=== PATIENT | female | born 1985 | race Hispanic/Latino ===

== ENCOUNTER 2017-02-14 08:00 | Outpatient (CLI) | payer OTHER | END 2017-02-14 08:01 | disposition home or self-care (01) | LOC: BICULT 08:00 | PROVIDERS: ATTEND Emergency Medicine | DX: N63.0 Unspecified lump in unspecified breast (principal) ==

== ENCOUNTER 2017-02-17 21:01 | Inpatient (IN) | payer MEDICAID, OTHER, SELFPAY ==
[2017-02-17 22:06] VITALS: BMI 33.5
[2017-02-17] MEDS ORDERED: LR / Pitocin 40 units/1000 ml 1,000 ML IV PRN (22:13)
[2017-02-17] MEDS ORDERED: Lidocaine 1% (PF) 30 ML VIAL SC PRN (22:13)
[2017-02-17] MEDS ORDERED: Acetaminophen 500 MG TAB PO PRN (22:13)
[2017-02-17] MEDS ORDERED: Promethazine HCl 25 MG/ML VIAL IM PRN (22:13)
[2017-02-17] MEDS ORDERED: Zolpidem Tartrate 5 MG TAB PO PRN (22:13)
[2017-02-17] MEDS: Lactated Ringer's 1,000 ML IV SCH (22:15)
[2017-02-17] MEDS ORDERED: Carboprost 250 MCG/ML AMP IM PRN (22:18)
[2017-02-17] MEDS ORDERED: HYDROcodone/Acetaminophen 5/325 mg Tablet PO PRN ×2 (22:18)
[2017-02-17] MEDS ORDERED: Diphenoxylate HCl/Atropine Tablet PO PRN (22:18)
[2017-02-17] MEDS ORDERED: Methylergonovine 0.2 MG/ML VIAL IM PRN (22:18)
[2017-02-17] MEDS ORDERED: Ibuprofen 800 MG TAB PO PRN (22:18)
[2017-02-17] MEDS ORDERED: Misoprostol 200 MCG TAB PR PRN (22:18)
[2017-02-17 22:37] LABS: Hemoglobin 12.8 g/dL (12.0-16.0); Mean Corpuscular HGB CONC 34.3 g/dL (32.0-36.0); Mean Corpuscular Hemoglobin 29.9 pg (27.0-31.0); Mean Corpuscular Volume 87.4 fl (81.0-99.0); Mean Platelet Volume 8.4 fL (7.4-10.4); Platelet Count 182 thou/uL (130-400); RBC Distribution Width 12.6 % (11.5-14.5); Red Blood Cell (RBC) Count 4.27 mill/uL (4.20-5.40); White Blood Cell (WBC) Count 8.9 thou/uL (4.8-10.8)
[2017-02-17 22:51] LABS: ALT (SGPT) 11 U/L (8-55); AST (SGOT) 13 U/L (5-34); Albumin 3.2 g/dL (3.5-5.0); Alkaline Phosphatase 100 U/L (40-150); Anion Gap 15 mmol/L (10-20); BUN (Urea Nitrogen) 11 mg/dL (7.0-18.7); Bilirubin, Total 0.3 mg/dL (0.2-1.2); Calc. Creatinine Clearance 172 mL/min (70-130); Calcium 9.1 mg/dL (7.8-10.44); Carbon Dioxide 20 mmol/L (22-29); Chloride 106 mmol/L (98-107); Estimated GFR-MDRD Greater than 90; Globulin 2.8 g/dL (2.4-3.5); Glucose 99 mg/dL (70-105); Sodium 137 mmol/L (136-145)
[2017-02-17 23:09] LABS: Syphilis Antibody Nonreactive (Nonreactive); Syphilis Antibody Index 0.06 S/CO (<1.00 Non-Reactive)
[2017-02-17 23:35] LABS: HBSAg Index 0.16 S/CO (0-0.99); Hep B Surf Ag Non-Reactive S/CO (NonReactive)
[2017-02-18] MEDS: Misoprostol 100 MCG TAB VAG SCH ×7 (00:47→22:31)
--- NOTE | 2017-02-18 00:53 | PDOC.LDHP ---
Labor and Delivery H&P Chief complaint: scheduled induction HPI: 31 yo at 38.3 wks by LMP/13.3 wk sono here for scheduled elective IOL. Patient recently dx with Left breast invasive ductal carcinoma grade 2 (ER/OR positive, HER-2/Hero negative). Meet with cancer team today. Discussed treatment options along with delivery options. Patient wishes to proceed with IOL today and start treatment as soon as possible. For the most part, has been uneventful. Except for the following.... BMI 34, Gestational thrombocytopenia (resolved) and breast cancer. Breast mass was originally noted by patient 2 months ago on self-breast exam. Denies skin changes, pain, or nipple discharge. No family history of colon, breast, or ovarian. +FM. Denies LOF, discharge, VB. Occasional non-painful contraction. Current gestational age (weeks): 38 (38.3 wks) Due date: 02/28/17 Dating criteria: other (by LMP/13.3 wk sono) Grav: 1 Para: 0 OB History Details: G1 Current complications: other (BMI 34, Gestational thrombocytopenia ( resolved), Invasive Ductal Carcinoma of the left breast) Abnormal US findings: No (Cephalic. Anterior placenta. Grossly normal anatomy. ) Past Medical History: NONE Current medications: pre-slim vitamins Previous surgical history: none Allergies/Adverse Reactions: Allergies Allergy/AdvReac Type Severity Reaction Status Date / Time No Known Allergies Allergy Verified 02/17/17 22:00 Social history: none - Physical Exam Vital signs reviewed and normal: yes General: NAD, resting Heart: RRR (No M/R/G) Lungs: nonlabored breathing (CTAB, No W/C/R) Abdomen: gravid (NTTP, ND, BS present) Extremeties: normal range of motion (No C/C/E) FHT: category 1 (145/mod/pos acels/no decels) [place] contractions every: Occasional - Vaginal Exam cm dilated: 1 Effacement: 50% Station: -3 - OB Labs Blood type: A RH: positive Antibody Screen: negative HIV: negative (08/26/16, 01/07/17) RPR: negative (08/26/16, 01/07/17) HEPSAg: negative 1 hour GCT: negative (126) GBS: negative (02/04/18) Rubella: immune Additional Labs: Urine culture: negative H/H: 13.9/39.3 --> 12.5/36.0 --> 13.1/37.7 PLT: 155 --> 149 --> 189 Pap: NILM/HPV negative, Reactive cellular changes noted. Gonorrhea/Chloamydia: negative - Assessment L&D Assessment: elective induction at term - Plan Plan: admit to L&D, cervical ripening -: 31 yo female at 38.3 wks by LMP/13.3 wk sono admitted for elective IOL. 1. sIUP: IOB labs reviewed. Anatomy reviewed. Declined genetic screening. s/p Flu vaccine. 1 hour gtt 126. 3T negative. GBS negative. Cephalic by sono. Anterior placenta. EFW 7lbs. Cat 1 tracing. At this time does not want epidural for pain control. 2. Elective IOL: R/B/A discussed at length. Learning And Development Coordinator used. Questions answered. Styles 4. Will start with miso. Repeat exam in 4 hours. Continuous vs intermitten monitoring at this time. Pending tracing and contraction pattern. 3. Invasive ductal carcinoma of the breast, grade 2: ER/OR positive. HER-e/Hero negative. Consult gen surg and Onc after delivery. Likely needs mediport prior to d/c. 4. BMI 34 5. Gestational thrombocytopenia: Resolved. PLT today 182. Dispo: Admit and proceed with IOL. Repeat exam in 4 hours. Luigi
--- NOTE | 2017-02-18 04:27 | PDOC.LDPN ---
Labor & Delivery Progress Note - Subjective Subjective: comfortable, other (31 yo G1 @ 38.4wks presents for induction.) - Objective Vital signs reviewed and normal: yes General: NAD Dilation: 1 Effacement: 50% Station: -3 FHT: category 1 [place] contractions every: 1-2minutes - Assessment (1) early term Current Visit: Yes Status: Acute (2) Encounter for elective induction of labor Code(s): Z34.90 - ENCNTR FOR SUPRVSN OF NORMAL , UNSP, UNSP TRIMESTER Current Visit: Yes Status: Acute (3) Gestational thrombocytopenia Code(s): O99.119 - OTH DIS OF BLD/BLD-FORM ORG/IMMUN MECHNSM COMP PREG,UNSP TRI ; D69.6 - THROMBOCYTOPENIA, UNSPECIFIED Current Visit: Yes Status: Acute (4) Invasive ductal carcinoma of breast Code(s): C50.919 - MALIGNANT NEOPLASM OF UNSP SITE OF UNSPECIFIED FEMALE BREAST Current Visit: Yes Status: Acute -: Plan: Cervix i s unchanged from prior check at 0030. [place] every 1-[address] minutes[address] Too often to place another cytotec. Will discuss with patient her options. Continue labor checks q4h <Neela Tovar - Last Filed: 02/18/17 04:25> Attending Addendum - Attending Addendum I personally evaluated the patient and discussed the management with Dr. Tovar I agree with the History, Examination, Assessment and Plan documented above with any addition or exceptions noted below. 31 yo female at 38.4 wks by LMP/13.3 wk sono admitted for elective IOL. 1. sIUP: IOB labs reviewed. Anatomy reviewed. Declined genetic screening. s/p Flu vaccine. 1 hour gtt 126. 3T negative. GBS negative. Cephalic by sono. Anterior placenta. EFW 7lbs. Cat 1 tracing. At this time does not want epidural for pain control. 2. Elective IOL: s/p miso x1. Unable to place 2nd miso at this time. Cooks balloon inserted at 0505. Patient tolerated well. Will allow short rest and reassess in 1 hour. If contraction pattern decreased will place 2nd miso. Ctx q 2 to 4 mins. SVE unchanged. 3. Invasive ductal carcinoma of the breast, grade 2: ER/GA positive. HER-e/Hero negative. Consult gen surg and Onc after delivery. Likely needs mediport prior to d/c. 4. BMI 34 5. Gestational thrombocytopenia: Resolved. PLT today 182. Dispo: Assess in 1 hour. Possible miso vs pit. Balloon in place. Pain manageable without interventions. Luigi <Jaleesa Hughes - Last Filed: 02/18/17 05:13>
[2017-02-18] MEDS: Lactated Ringer's 1,000 ML IV SCH ×3 (06:05→22:31)
--- NOTE | 2017-02-18 09:22 | PDOC.LDPN ---
Labor & Delivery Progress Note - Subjective Subjective: comfortable - Objective Vital signs reviewed and normal: yes General: NAD, resting Uterine fundus: non tender SVE: Tugged on balloon; still firmly in place @ 09:00 FHT: category 1, variability present [place] contractions every: q1-2 - Assessment (1) Encounter for elective induction of labor Code(s): Z34.90 - ENCNTR FOR SUPRVSN OF NORMAL , UNSP, UNSP TRIMESTER Current Visit: Yes Status: Acute Comment: 31 y/o @ 38.4 wks presents for elective induction of labor -Recent diagnosis of invasive ductal carcinoma -Cytotec x2 -Balloon placed at 4:30; checked at 9:[address] -Check balloon every 2 hours -Consider pitocin or cytotec at 10:00, which would be 4 hours after balloon placement (2) early term Current Visit: Yes Status: Acute Comment: -Elective induction of labor (3) Invasive ductal carcinoma of breast Code(s): C50.919 - MALIGNANT NEOPLASM OF UNSP SITE OF UNSPECIFIED FEMALE BREAST Current Visit: Yes Status: Acute Comment: -Recent diagnosis -Talked with social media marketing analyst about new diagnosis; PCP was present during discussion (4) Gestational thrombocytopenia Code(s): O99.119 - OTH DIS OF BLD/BLD-FORM ORG/IMMUN MECHNSM COMP PREG,UNSP TRI ; D69.6 - THROMBOCYTOPENIA, UNSPECIFIED Current Visit: Yes Status: Chronic Plan: continue plan of care <Ita Caballero - Last Filed: 02/18/17 11:15> Attending Addendum - Attending Addendum I personally evaluated the patient and discussed the management with Dr. Alicia on 02/18/17 I agree with the History, Examination, Assessment and Plan documented above with any addition or exceptions noted below. Balloon + Cytotec induction. Cat 1. Ctxn's detected via EFM every 2-3 min. Balloon placed at 0400, will continue till 1600 if doesn't come out on own. <Rober Velásquez - Last Filed: 02/19/17 11:24>
--- NOTE | 2017-02-18 12:17 | PDOC.LDPN ---
Labor & Delivery Progress Note - Subjective Subjective: painful contractions - Objective Vital signs reviewed and normal: yes General: NAD, breathing through contractions Uterine fundus: non tender SVE: 12:10 Dilation: 2 Effacement: 25% Station: -2 FHT: category 1, variability present [place] contractions every: q2-3 min - Assessment (1) Encounter for elective induction of labor Code(s): Z34.90 - ENCNTR FOR SUPRVSN OF NORMAL , UNSP, UNSP TRIMESTER Current Visit: Yes Status: Acute Comment: 31 y/o @ 38.4 wks presents for elective induction of labor -Recent diagnosis of invasive ductal carcinoma -Cytotec x2 -Balloon placed at 4:30; checked at 9:[address]; replaced at 10:00 -Check balloon every 2 hours -SVE: 04/03/-2 @ 12:00, unchanged -Remove balloon at 16:30 after total of 12 hours -Consider starting pitocin at that time (2) early term Current Visit: Yes Status: Acute Comment: -Elective induction of labor (3) Invasive ductal carcinoma of breast Code(s): C50.919 - MALIGNANT NEOPLASM OF UNSP SITE OF UNSPECIFIED FEMALE BREAST Current Visit: Yes Status: Acute Comment: -Recent diagnosis -Talked with social studies department chair about new diagnosis; PCP was present during discussion (4) Gestational thrombocytopenia Code(s): O99.119 - OTH DIS OF BLD/BLD-FORM ORG/IMMUN MECHNSM COMP PREG,UNSP TRI ; D69.6 - THROMBOCYTOPENIA, UNSPECIFIED Current Visit: Yes Status: Chronic <Ita Caballero - Last Filed: 02/18/17 12:15> Attending Addendum - Attending Addendum I personally evaluated the patient and discussed the management with Dr. Alicia on 02/18/17. I agree with the History, Examination, Assessment and Plan documented above with any addition or exceptions noted below. SVE revealed uterine balloon intravaginal, removed and cervix found to be 2 cm at external os and 1 at internal os, suggesting incomplete prior insertion. New Cook balloon placed in proper placement. Will continue till 1630 as tolerated. EFM Cat 1 with ctxns q 1-3 minutes mildly felt by pt. <Rober Velásquez - Last Filed: 02/19/17 11:29>
[2017-02-18] MEDS: Ondansetron HCl/PF 4 MG/2 ML Vial IVP PRN ×2 (12:46→20:31)
--- NOTE | 2017-02-18 16:26 | PDOC.LDPN ---
Labor & Delivery Progress Note - Subjective Subjective: painful contractions - Objective Vital signs reviewed and normal: yes General: NAD, resting, breathing through contractions Uterine fundus: non tender SVE: 16:15 Dilation: 4 Effacement: 50% Station: -2 FHT: category 1 [place] contractions every: 2 min - Assessment (1) Encounter for elective induction of labor Code(s): Z34.90 - ENCNTR FOR SUPRVSN OF NORMAL , UNSP, UNSP TRIMESTER Current Visit: Yes Status: Acute Comment: 31 y/o @ 38.4 wks presents for elective induction of labor -Recent diagnosis of invasive ductal carcinoma -Cytotec x2 -Balloon removed at 16:15 as it had been 12hrs -SVE: 50/-2 -Holding off on pitocin at this time. -Considering an epidural and has watched video, but wants to hold off for now. - Recheck q2H and depending on her check at that time consider letting her rest overnight and starting pit tomorrow AM. (2) Invasive ductal carcinoma of breast Code(s): C50.919 - MALIGNANT NEOPLASM OF UNS SITE OF UNSPECIFIED FEMALE BREAST Current Visit: Yes Status: Acute Comment: -Recent diagnosis -Talked with group social worker about new diagnosis; PCP was present during discussion (3) early term Current Visit: Yes Status: Acute Comment: -Elective induction of labor (4) Gestational thrombocytopenia Code(s): O99.119 - OTH DIS OF BLD/BLD-FORM ORG/IMMUN MECHNSM COMP PREG,UNSP TRI ; D69.6 - THROMBOCYTOPENIA, UNSPECIFIED Current Visit: Yes Status: Chronic Comment: PLT of 182 on admission.
[2017-02-18] MEDS: LR 500 ML/Oxytocin 10 units 500 ML IV SCH ×2 (20:31→22:56)
--- NOTE | 2017-02-18 22:59 | PDOC.LDPN ---
Labor & Delivery Progress Note - Subjective Subjective: painful contractions - Objective Vital signs reviewed and normal: yes General: NAD, resting, breathing through contractions Dilation: 7 Effacement: 90% Station: -1 FHT: category 2 (minimal variability) [place] contractions every: 3-5 minutes - Assessment (1) early term Current Visit: Yes Status: Acute Comment: -Elective induction of labor (2) Encounter for elective induction of labor Code(s): Z34.90 - ENCNTR FOR SUPRVSN OF NORMAL , UNSP, UNSP TRIMESTER Current Visit: Yes Status: Acute Comment: 31 y/o @ 38.4 wks presents for elective induction of labor -Recent diagnosis of invasive ductal carcinoma -Balloon removed at 16:15 as it had been 12hrs -SVE: /-1 -Starting pitocin. -Recheck q2H -Pt does not desire an epidural (3) Gestational thrombocytopenia Code(s): O99.119 - OTH DIS OF BLD/BLD-FORM ORG/IMMUN MECHNSM COMP PREG,UNSP TRI ; D69.6 - THROMBOCYTOPENIA, UNSPECIFIED Current Visit: Yes Status: Chronic Comment: PLT of 182 on admission. (4) Invasive ductal carcinoma of breast Code(s): C50.919 - MALIGNANT NEOPLASM OF UNSP SITE OF UNSPECIFIED FEMALE BREAST Current Visit: Yes Status: Acute Comment: -Recent diagnosis -Talked with mental health social worker about new diagnosis; PCP was present during discussion Plan: pitocin for augmentation
--- NOTE | 2017-02-18 23:01 | PDOC.LDPN ---
Labor & Delivery Progress Note - Subjective Subjective: comfortable - Objective Vital signs reviewed and normal: yes General: NAD Dilation: 6 Effacement: 50% Station: -1 FHT: category 2 [place] contractions every: 3-5 minutes - Assessment (1) early term Current Visit: Yes Status: Acute Comment: -Elective induction of labor (2) Encounter for elective induction of labor Code(s): Z34.90 - ENCNTR FOR SUPRVSN OF NORMAL , UNSP, UNSP TRIMESTER Current Visit: Yes Status: Acute Comment: 31 y/o @ 38.4 wks presents for elective induction of labor -Recent diagnosis of invasive ductal carcinoma -Balloon removed at 16:15 as it had been 12hrs -SVE: /-1. -Recheck q2H -Pt does not desire an epidural -Pt would like to shower and eat. Will recheck in 2 hours and consider starting pitocin. (3) Gestational thrombocytopenia Code(s): O99.119 - OTH DIS OF BLD/BLD-FORM ORG/IMMUN MECHNSM COMP PREG,UNSP TRI ; D69.6 - THROMBOCYTOPENIA, UNSPECIFIED Current Visit: Yes Status: Chronic Comment: PLT of 182 on admission. (4) Invasive ductal carcinoma of breast Code(s): C50.919 - MALIGNANT NEOPLASM OF UNSP SITE OF UNSPECIFIED FEMALE BREAST Current Visit: Yes Status: Acute Comment: -Recent diagnosis -Talked with forensic social worker about new diagnosis; PCP was present during discussion
--- NOTE | 2017-02-18 23:02 | PDOC.LDPN ---
Labor & Delivery Progress Note - Subjective Subjective: painful contractions - Objective Vital signs reviewed and normal: yes General: breathing through contractions Dilation: 6 Effacement: 90% Station: -1 FHT: category 2 (minimal variability at times) [place] contractions every: 3-5 minutes - Assessment (1) early term Current Visit: Yes Status: Acute Comment: -Elective induction of labor (2) Encounter for elective induction of labor Code(s): Z34.90 - ENCNTR FOR SUPRVSN OF NORMAL , UNSP, UNSP TRIMESTER Current Visit: Yes Status: Acute Comment: 31 y/o @ 38.4 wks presents for elective induction of labor -Recent diagnosis of invasive ductal carcinoma -Balloon removed at 16:15 as it had been 12hrs -SVE: /-1. -Recheck q2H -Pt does not desire an epidural -Will recheck in 2 hours and consider starting pitocin at that time. (3) Gestational thrombocytopenia Code(s): O99.119 - OTH DIS OF BLD/BLD-FORM ORG/IMMUN MECHNSM COMP PREG,UNSP TRI ; D69.6 - THROMBOCYTOPENIA, UNSPECIFIED Current Visit: Yes Status: Chronic Comment: PLT of 182 on admission. (4) Invasive ductal carcinoma of breast Code(s): C50.919 - MALIGNANT NEOPLASM OF UNS SITE OF UNSPECIFIED FEMALE BREAST Current Visit: Yes Status: Acute Comment: -Recent diagnosis -Talked with high school social science teacher about new diagnosis; PCP was present during discussion
--- NOTE | 2017-02-19 01:32 | PDOC.LDPN ---
Labor & Delivery Progress Note - Subjective Subjective: painful contractions - Objective Vital signs reviewed and normal: yes General: breathing through contractions Dilation: 8 Effacement: 100% Station: -1 FHT: category 2 [place] contractions every: every 1-2 minutes - Assessment (1) early term Current Visit: Yes Status: Acute Comment: -Elective induction of labor (2) Encounter for elective induction of labor Code(s): Z34.90 - ENCNTR FOR SUPRVSN OF NORMAL , UNSP, UNSP TRIMESTER Current Visit: Yes Status: Acute Comment: 31 y/o @ 38.4 wks presents for elective induction of labor -Recent diagnosis of invasive ductal carcinoma -Balloon removed at 16:15 as it had been 12hrs -SVE: 8100/-1. -Recheck q2H -Pt does not desire an epidural -Continue pitocin. -Bulging bag, head ballottable (3) Gestational thrombocytopenia Code(s): O99.119 - OTH DIS OF BLD/BLD-FORM ORG/IMMUN MECHNSM COMP PREG,UNSP TRI ; D69.6 - THROMBOCYTOPENIA, UNSPECIFIED Current Visit: Yes Status: Chronic Comment: PLT of 182 on admission. (4) Invasive ductal carcinoma of breast Code(s): C50.919 - MALIGNANT NEOPLASM OF UNSP SITE OF UNSPECIFIED FEMALE BREAST Current Visit: Yes Status: Acute Comment: -Recent diagnosis -Talked with social insurance adviser about new diagnosis; PCP was present during discussion
--- NOTE | 2017-02-19 02:17 | PDOC.LDPN ---
Labor & Delivery Progress Note - Subjective Subjective: painful contractions - Objective Vital signs reviewed and normal: yes General: breathing through contractions Dilation: 9 Effacement: 100% Station: -1 FHT: category 1 [place] contractions every: 1-2 minutes Other exam findings: SROM - Assessment (1) early term Current Visit: Yes Status: Acute Comment: -Elective induction of labor (2) Encounter for elective induction of labor Code(s): Z34.90 - ENCNTR FOR SUPRVSN OF NORMAL , UNSP, UNSP TRIMESTER Current Visit: Yes Status: Acute Comment: 31 y/o @ 38.4 wks presents for elective induction of labor -Recent diagnosis of invasive ductal carcinoma -Balloon removed at 16:15 as it had been 12hrs -SVE: /-1 -Recheck q2H -Pt does not desire an epidural -Continue pitocin. -SROM @ 0200 (3) Gestational thrombocytopenia Code(s): O99.119 - OTH DIS OF BLD/BLD-FORM ORG/IMMUN MECHNSM COMP PREG,UNSP TRI ; D69.6 - THROMBOCYTOPENIA, UNSPECIFIED Current Visit: Yes Status: Chronic Comment: PLT of 182 on admission. (4) Invasive ductal carcinoma of breast Code(s): C50.919 - MALIGNANT NEOPLASM OF UNSP SITE OF UNSPECIFIED FEMALE BREAST Current Visit: Yes Status: Acute Comment: -Recent diagnosis -Talked with rn social work about new diagnosis; PCP was present during discussion <Neela Toavr - Last Filed: 02/19/17 02:16> Attending Addendum - Attending Addendum I personally evaluated the patient and discussed the management with Dr. Zepeda I agree with the History, Examination, Assessment and Plan documented above with any addition or exceptions noted below. Slow change, recheck in two hours <Montez Clayton - Last Filed: 02/19/17 07:10>
[2017-02-19] MEDS: Misoprostol 100 MCG TAB VAG SCH ×2 (04:09→04:10)
--- NOTE | 2017-02-19 04:43 | PDOC.LDPN ---
Labor & Delivery Progress Note - Objective Vital signs reviewed and normal: yes General: breathing through contractions FHT: category 1 (cat 1, + accels, - decels, mod nahun) [place] contractions every: q2-3m Other exam findings: 8-9/c/+1 but with some mild edema FSE placed: yes Resuscitative measures: maternal position change Plan: continue plan of care (Unable to place IUPC at this juncture, recheck in 2 hours and reassess)
[2017-02-19] MEDS ORDERED: Fentanyl 4 mcg/Marc 0.1% Cadd 100 ML ONE (04:56)
[2017-02-19] MEDS: Lactated Ringer's 1,000 ML IV SCH ×2 (05:13→11:03)
[2017-02-19] MEDS ORDERED: Promethazine HCl 25 MG/ML VIAL IM PRN (06:01)
[2017-02-19] MEDS ORDERED: Ondansetron HCl/PF 4 MG/2 ML Vial IVP PRN (06:01)
[2017-02-19] MEDS ORDERED: Naloxone HCl 0.4 mg/ml Vial IVP PRN ×2 (06:01)
[2017-02-19] MEDS ORDERED: Acetaminophen 325 MG TAB PO PRN (06:01)
[2017-02-19] MEDS ORDERED: Eucerin (Mineral Oil/Petrolatum,White) 30 gm Jar TOP PRN (06:01)
[2017-02-19] MEDS ORDERED: Lactated Ringer's 500 ML IV PRN (06:01)
[2017-02-19] MEDS ORDERED: ePHEDrine/0.9% NaCl/PF SYRINGE 50 mg/10 ml SLOW IVP PRN (06:01)
[2017-02-19] MEDS ORDERED: diphenhydrAMINE 50 MG/ML VIAL IVP PRN (06:01)
[2017-02-19] MEDS ORDERED: Fentanyl 4mcg/Marcaine 0.1% Cassette 100 ML EPIDURAL SCH (06:15)
[2017-02-19] MEDS ORDERED: Communication Order-Pharmacy FS SCH (06:15)
--- NOTE | 2017-02-19 06:35 | PDOC.LDPN ---
Labor & Delivery Progress Note - Subjective Subjective: comfortable - Objective Vital signs reviewed and normal: yes General: NAD, resting Uterine fundus: non tender SVE: 6:30 Dilation: 10 w/ anterior lip Effacement: 100% Station: 1+ FHT: category 1, variability present [place] contractions every: q3-4 min - Assessment (1) Encounter for elective induction of labor Code(s): Z34.90 - ENCNTR FOR SUPRVSN OF NORMAL , UNSP, UNSP TRIMESTER Current Visit: Yes Status: Acute Comment: 31 y/o @ 38.4 wks presents for elective induction of labor -Recent diagnosis of invasive ductal carcinoma -Balloon removed at 16:15 as it had been 12hrs -SVE: 10 with anterior lip/100/+1 -Recheck q2H -Pt has received epidural -Continue pitocin. Currently at 6 -SROM @ 0200 (2) early term Current Visit: Yes Status: Acute Comment: -Elective induction of labor (3) Invasive ductal carcinoma of breast Code(s): C50.919 - MALIGNANT NEOPLASM OF UNSP SITE OF UNSPECIFIED FEMALE BREAST Current Visit: Yes Status: Acute Comment: -Recent diagnosis -Talked with marriage and family social worker about new diagnosis; PCP was present during discussion (4) Gestational thrombocytopenia Code(s): O99.119 - OTH DIS OF BLD/BLD-FORM ORG/IMMUN MECHNSM COMP PREG,UNSP TRI ; D69.6 - THROMBOCYTOPENIA, UNSPECIFIED Current Visit: Yes Status: Chronic Comment: PLT of 182 on admission. <Ita Caballero - Last Filed: 02/19/17 06:37> Attending Addendum - Attending Addendum I personally evaluated the patient and discussed the management with Dr. Zepeda. I agree with the History, Examination, Assessment and Plan documented above with any addition or exceptions noted below. Now AL. After epidural BP dropped and had a period of recurrent lates and minimal variability which resolved with d/c pit, position changes, O2, and bolus d5LR. Will monitor closely. Handoff given to Dr. Velásquez, who will be assuming care as attending. <Montez Clayton - Last Filed: 02/19/17 07:48>
--- NOTE | 2017-02-19 08:57 | PDOC.LDPN ---
Labor & Delivery Progress Note - Subjective Subjective: comfortable - Objective Vital signs reviewed and normal: yes General: NAD, resting, breathing through contractions Uterine fundus: non tender SVE: 9.5 with lip Effacement: 100% Station: 1+ FHT: category 2 - Assessment (1) Encounter for elective induction of labor Code(s): Z34.90 - ENCNTR FOR SUPRVSN OF NORMAL , UNSP, UNSP TRIMESTER Current Visit: Yes Status: Acute Comment: 31 y/o @ 38.4 wks presents for elective induction of labor -Recent diagnosis of invasive ductal carcinoma -Balloon removed at 16:15 on 02/18/17 as it had been 12hrs -SVE: 9.5 with anterior lip/100/+1 -Recheck q1H -Pt has received epidural -pitocin stoppped around 0715 and now restarted around 0840 - cont position changes and conisder operative delivery if descent allows. (2) Invasive ductal carcinoma of breast Code(s): C50.919 - MALIGNANT NEOPLASM OF UNSP SITE OF UNSPECIFIED FEMALE BREAST Current Visit: Yes Status: Acute Comment: -Recent diagnosis -Talked with social work associate about new diagnosis; I was present for and offered elective induction which patient wanted to do. I have spoke with surgeon who we will consult formally after delivery prior to discharge from hospital. All questions answered.
--- NOTE | 2017-02-19 10:41 | PDOC.LDPN ---
Labor & Delivery Progress Note - Subjective Subjective: comfortable - Objective Vital signs reviewed and normal: yes General: NAD, resting, breathing through contractions SVE: 8100/0 FHT: category 2 IUPC placed: yes - Assessment (1) Encounter for elective induction of labor Code(s): Z34.90 - ENCNTR FOR SUPRVSN OF NORMAL , UNSP, UNSP TRIMESTER Current Visit: Yes Status: Acute Comment: 31 y/o @ 38.4 wks presents for elective induction of labor -Recent diagnosis of invasive ductal carcinoma -Balloon removed at 16:15 on 02/18/17 as it had been 12hrs -SVE: /0 -Recheck q1H -Pt has received epidural -pitocin increased s/p IUPC placement with inadequate MVUs. -cont to monitor with position changes as needed, on floor monitoring strip (2) Invasive ductal carcinoma of breast Code(s): C50.919 - MALIGNANT NEOPLASM OF UNSP SITE OF UNSPECIFIED FEMALE BREAST Current Visit: Yes Status: Acute Comment: -Recent diagnosis -Talked with director social welfare about new diagnosis; I was present for and offered elective induction which patient wanted to do. I have spoke with surgeon who we will consult formally after delivery prior to discharge from hospital. All questions answered.
[2017-02-19] MEDS ORDERED: Bupivacaine/Epinephrine 0.25% 30 ML VIAL ONE (11:11)
[2017-02-19] MEDS ORDERED: ePHEDrine/0.9% NaCl/PF SYRINGE 50 mg/10 ml ONE (11:11)
--- NOTE | 2017-02-19 15:05 | PDOC.OPDEL ---
OB Operative/Delivery Note Delivery Dr/Surgeon: Samantha Murphy MD; Montez Clayton MD Pre-Delivery Diagnosis: elective induction Procedure/Post Delivery Dx: spontaneous vaginal delivery Anesthesia: epidural - Findings A Sex: female Weight: 3.345 kg - 1 min: 7 - 5 min: 9 - Additional Findings/Plan Placenta delivered: spontaneous Repaired Obstetrical Laceration: 2nd degree (and left periurethral) Estimated blood loss: 250 ml Post delivery plan: routine recovery <Samantha Murphy - Last Filed: 02/19/17 14:47> Attending Addendum - Attending Addendum I was present and gowned for the entire delivery. s/p to ET AGA female AG 08/15, delivered in OA position, atraumatically, and cried at the perineum. Cord clamped and cut and place skin to skin with mother. Blood sampled. Placenta delivered via CCT. Uterus firmed with manual massage and IV pit. Second degree and left labial/periurethral repaired in the usual fashion with 3-0 chromic. EBL 250 cc. <Montez Clayton - Last Filed: 02/19/17 16:49>
--- NOTE | 2017-02-19 15:53 | PDOC.OP ---
Operative Note - Operative Note Operative Note: VAGINAL DELIVERY NOTE Delivering Physician: Samantha Murphy MD Attending: Montez Clayton MD Procedure: Spontaneous Vaginal Delivery Anesthesia: epidural EBL: 250 ml Pre-op Diagnosis: 1. Induction of labor 2. Term 2. invasive ductal carcinoma of left breast Post-op Diagnosis: 1. Term intrauterine , delivered 2. invasive ductal carcinoma of left breast Indications: A 31 y/o female presents to L&D for induction due to recent diagnosis of invasive ductal carcinoma of left breast. Delivery Note: This is 31 yo F @ 38.5 wks who delivered a viable F at 1348 on 02/19/17. Following an antepartum course most significant for diagnosis of invasive ductal carcinoma of the breast, a vigorous female was delivered over an intact perineum in the KT position. Anterior Shoulder and then remainder of the body delivered. No nuchal cord. The head was held down and mouth and nares were bulb suctioned. Cord clamped and cut and cord blood collected. Placenta delivered intact with a 3 vessel cord noted. Fundal massage was performed and the fundus was firm. The cervix and vagina were inspected and found to have a left periurethral laceration as well as small 2nd degree vaginal laceration. Both were repaired with 3-0 chromic in the usual fashion with good approximation and hemostasis. went to nursery in good condition for routine care. Apgars were 7/9 at 1 & 5 minutes, respectively. Patient tolerated delivery well and went to after routine recovery. <Samantha Murphy - Last Filed: 02/19/17 15:51> Attending Addendum - Attending Addendum I was present and gowned for the entire delivery. <Montez Clayton - Last Filed: 02/19/17 16:50>
[2017-02-19] MEDS ORDERED: Acetaminophen/Codeine 30-300mg Tablet PO PRN ×2 (16:34)
[2017-02-19] MEDS ORDERED: Adacel (T-DAP) 0.5 ML VIAL IM ONE (16:34)
[2017-02-19] MEDS ORDERED: Benzocaine/Menthol 20-0.5% 60 ML CAN TOP PRN (16:34)
[2017-02-19] MEDS ORDERED: Preparation H Ointment 28 GM TUBE PR PRN (16:34)
[2017-02-19] MEDS ORDERED: Milk Of Magnesia 30 ML UDCUP PO PRN (16:34)
[2017-02-19] MEDS ORDERED: diphenhydrAMINE 25 MG CAP PO PRN (16:34)
[2017-02-19] MEDS ORDERED: Bisacodyl 10 MG SUPP PR PRN (16:34)
[2017-02-19 17:01] LABS: Hemoglobin 12.2 g/dL (12.0-16.0); Mean Corpuscular HGB CONC 33.9 g/dL (32.0-36.0); Mean Corpuscular Hemoglobin 29.8 pg (27.0-31.0); Platelet Count 165 thou/uL (130-400); RBC Distribution Width 12.7 % (11.5-14.5); Red Blood Cell (RBC) Count 4.09 mill/uL (4.20-5.40); White Blood Cell (WBC) Count 20.3 thou/uL (4.8-10.8)
[2017-02-19 17:17] LABS: Band 11 % (5-11); Lymphocytes 9 % (21-51); MDiff Complete? YES; Monocytes 1 % (0-10); Neutrophil 79 % (42-75); PLT Morphology Comment Appears Adequate; RBC Morphology Normal
[2017-02-19] MEDS: Docusate Calcium (SURFAK) 240 MG CAP PO SCH (21:36)
[2017-02-19] MEDS: Ibuprofen 800 MG TAB PO SCH (21:36)
[2017-02-20] MEDS: Ibuprofen 800 MG TAB PO SCH ×4 (07:26→21:36)
[2017-02-20] MEDS ORDERED: Prenatal Vitamin 1 TAB PO SCH (09:00)
[2017-02-20] MEDS: Docusate Calcium (SURFAK) 240 MG CAP PO SCH ×2 (09:43→21:36)
--- NOTE | 2017-02-20 12:36 | PDOC.GSCN ---
Surgery Consult: HPI - Consult details Date: 02/20/17 Reason for consult: other (Breast cancer) History of present illness: Patient present with left breast mass during third trimester had biopsy showing ER/RI positive [id number] negative invasive ductal cell carcinoma. She has no pain. No family history of breast or ovarian cancer. She has delivered now. She had u/s guided biopsy of both mass and axillary node showing metastatic cancer to axilla. Surgery Consult: ROS - Review of Systems Constitutional: denies: as per HPI, anorexia, chills, daytime sleepiness, excessive sweating, fatigue, fever(s), frequent falls, headache(s), increased appetite, lethargy, malaise, night sweats, stops breathing during sleep, snoring , weakness, weight gain, weight loss, other HEENT: denies: Head Aches, Visual Changes, Eye Pain, Ear Pain, Dysphasia, Sinus Congestion, Post Nasal Drip, Sore Throat, Other Respiratory: denies: as per HPI, chest congestion, cough, dyspnea, hemoptysis, dyspnea on exertion, wheezing, snoring, stridor, pain on inspiration, excessive phlegm production, change in phlegm color, pain with cough, other Gastrointestinal: denies: as per HPI, abdominal pain, belching, bloating, change in bowel habits, coffee ground emesis, constipation, cramping, change in stool character, diarrhea, dyspepsia, dysphagia, excessive flatus, early satiety , fecal incontinence, heartburn, hematemesis, hematochezia, loose stool, melena , nausea, odynophagia, tenesmus, vomiting, other Musculoskeletal: denies: as per HPI, abnormal gait, arthralgias, atrophy, back pain, defomity, joint swelling, loss of height, limited range of motion, muscle cramps, muscle weakness, myalgias, neck pain, numbness, radiating pain into limb , stiffness, tingling, other Surgery Consult: [facility] Past Medical History: None Past Surgical History: None - Past Family History Pertinent family history: No breast or ovarian cancer - Past Social History Smoking Status: Never smoker Alcohol Use: none Drug Use History: none Living Situation: Surgery Consult: Exam - Vital signs Vital signs: Vital Signs - Most Recent Temp Pulse Resp BP Pulse Ox 98.8 F 80 18 124/58 L 95 02/20/17 12:00 02/20/17 12:00 02/20/17 12:00 02/20/17 08:00 02/19/17 17:36 - Physical Exam General: no distress Eye: PERRL Neck: no lymphadectomy Respiratory: clear to auscultation Abdomen: non tender Additional exam: Breast: 4 cm mass left breast 3:00, no skin changes or nipple inversion, palpable 2 cm mass left axilla, no supraclavicular lymphadenopathy, No right breast or axillary mass Surgery Consult: Meds - Medications MAR Reviewed: Yes Medications: Current Medications Acetaminophen (Tylenol) 650 mg PO Q4H PRN PRN Reason: Headache Acetaminophen/Codeine Phosphate (Tylenol #3) 2 tab PO Q4H PRN PRN Reason: Moderate to Severe Pain (6-10) Acetaminophen/Codeine Phosphate (Tylenol #3) 1 tab PO Q4H PRN PRN Reason: Mild Pain (1-3) Benzocaine/Menthol (Dermoplast) 0 ml TOP PRN PRN PRN Reason: Pain Bisacodyl (Dulcolax) 10 mg RI Q8H PRN PRN Reason: Constipation Diphenhydramine HCl (Benadryl) 12.5 mg IVP Q3H PRN PRN Reason: Itching Diphenhydramine HCl (Benadryl) 25 mg PO Q4H PRN PRN Reason: Itching Docusate Calcium (Surfak) 240 mg PO BID FORMERLY [facility], 1928[facility]1983 Last Admin: 02/20/17 09:43 Dose: 240 mg Lactated Ringer's (Lr / Pitocin 40 Units/1000 Ml) 1,000 mls @ 999 mls/hr IV .Q1H1M PRN PRN Reason: Bolus after placenta delivery Last Admin: 02/19/17 14:50 Dose: 1,000 mls Lactated Ringer's (Lactated Ringer's) 500 mls @ 999 mls/hr IV .Q31M PRN PRN Reason: Blood Pressure Stop: 02/20/17 23:59 Ibuprofen (Motrin) 800 mg PO Q8HR FOR[facility]LY [facility], [facility]1983 Last Admin: 02/20/17 09:43 Dose: 800 mg Magnesium Hydroxide (Milk Of Magnesium) 30 ml PO DAILYPRN PRN PRN Reason: 3rd/4th degree episiotomy/lac Mineral Oil/White Petrolatum (Eucerin Cream) 0 gm TOP PRN PRN PRN Reason: Itching Naloxone HCl (Narcan) 0.4 mg IVP ONE PRN PRN Reason: Opiate Reversal Stop: 02/20/17 23:59 Naloxone HCl (Narcan) 0.1 mg IVP Q1H PRN PRN Reason: Itching Stop: 02/20/17 23:59 Ondansetron HCl (Zofran) 4 mg IVP Q6H PRN PRN Reason: Nausea/Vomiting Last Admin: 02/18/17 20:31 Dose: 4 mg Ondansetron HCl (Zofran) 4 mg IVP ONE PRN PRN Reason: Nausea/Vomiting Stop: 02/20/17 23:59 Phenyleph/Shark Oil/Min Oil/Petrol (Preparation H Ointment) 0 gm RI TIDPRN PRN PRN Reason: Hemorrhoids Multivit/Folic Acid/Iron ( Vitamin) 1 tab PO DAILY KATELYN Last Admin: 02/20/17 09:43 Dose: 1 tab Promethazine HCl (Phenergan) 12.5 mg IM Q4H PRN PRN Reason: Nausea/Vomiting Stop: 02/20/17 23:59 Sodium Chloride (Flush - Normal Saline) 10 ml IVF PRN PRN PRN Reason: Saline Flush - Allergies Allergies/Adverse Reactions: Allergies Allergy/AdvReac Type Severity Reaction Status Date / Time No Known Allergies Allergy Verified 02/17/17 22:00 Surgery Consult: Results - Labs Result Diagrams: 02/19/17 16:50 02/17/17 22:17 Lab results: Laboratory Results WBC 20.3 thou/uL (4.8-10.8) H 02/19/17 16:50 RBC 4.09 mill/uL (4.20-5.40) L 02/19/17 16:50 Hgb 12.2 g/dL (12.0-16.0) 02/19/17 16:50 Hct 36.0 % (36.0-47.0) 02/19/17 16:50 MCV 88.0 fl (81.0-99.0) 02/19/17 16:50 MCH 29.8 pg (27.0-31.0) 02/19/17 16:50 MCHC 33.9 g/dL (32.0-36.0) 02/19/17 16:50 RDW 12.7 % (11.5-14.5) 02/19/17 16:50 Plt Count 165 thou/uL (130-400) 02/19/17 16:50 MPV 8.0 fL (7.4-10.4) 02/19/17 16:50 Neutrophils % (Manual) 79 % (42-75) H 02/19/17 16:50 Band Neuts % (Manual) 11 % (5-11) 02/19/17 16:50 Lymphocytes % (Manual) 9 % (21-51) L 02/19/17 16:50 Monocytes % (Manual) 1 % (0-10) 02/19/17 16:50 Neutrophils # Not Reportable 02/19/17 16:50 Lymphocytes # Not Reportable 02/19/17 16:50 Plt Morphology Comment Appears Adequate 02/19/17 16:50 RBC Morph Comment Normal 02/19/17 16:50 Sodium 137 mmol/L (136-145) 02/17/17 22:17 Potassium 4.0 mmol/L (3.5-5.1) 02/17/17 22:17 Chloride 106 mmol/L (98-107) 02/17/17 22:17 Carbon Dioxide 20 mmol/L (22-29) L 02/17/17 22:17 Anion Gap 15 mmol/L (10-20) 02/17/17 22:17 BUN 11 mg/dL (7.0-18.7) 02/17/17 22:17 Creatinine 0.64 mg/dL (0.6-1.1) 02/17/17 22:17 Estimated GFR (MDRD) Greater than 90 02/17/17 22:17 Glucose 99 mg/dL (70-105) 02/17/17 22:17 Calcium 9.1 mg/dL (7.8-10.44) 02/17/17 22:17 Total Bilirubin 0.3 mg/dL (0.2-1.2) 02/17/17 22:17 AST 13 U/L (5-34) 02/17/17 22:17 ALT 11 U/L (8-55) 02/17/17 22:17 Alkaline Phosphatase 100 U/L (40-150) 02/17/17 22:17 Serum Total Protein 6.0 g/dL (6.0-8.3) 02/17/17 22:17 Albumin 3.2 g/dL (3.5-5.0) L 02/17/17 22:17 Globulin 2.8 g/dL (2.4-3.5) 02/17/17 22:17 Albumin/Globulin Ratio 1.1 g/dL (1.2-2.2) L 02/17/17 22:17 Syphilis IgG/IgM Ab Nonreactive (Nonreactive) 02/17/17 22:17 Hep Bs Antigen Non-Reactive S/CO (NonReactive) 02/17/17 22:17 Blood Type A POSITIVE 02/17/17 22:17 Antibody Screen NEGATIVE 02/17/17 22:17 Assessment/Plan - Assessment/Plan Assessment: Left breast cancer: ER/RI+, [id number] negative, Clinical stage T3, N1, Mx Plan: She will need mediport which could be placed before she leaves the hospital for insurance purposes. She will need adjuvant chemotherapy followed by surgery. Will have oncology service see her tomorrow. NPO after midnight for mediport tomorrow. Risks, benefits, and alternatives were discussed. She consents to surgery. Medical Doctor Md phone used for communication. She had no questions and understood assessment and plan
--- NOTE | 2017-02-20 12:40 | PDOC.PP ---
Post Progress Note Post Day #: 1 Subjective: Patient doing well. Eating well, ambulating, pain well controlled. PO intake tolerated: yes Ambulation: yes Vital Signs (12 hours) Temp Pulse Resp BP 02/20/17 08:00 98.8 F 80 18 124/58 L 02/20/17 04:00 98.7 F 69 16 Weight Weight 85.729 kg - Physical Examination General: NAD Cardiovascular: no m/r/g, RRR Respiratory: clear to auscultation bilaterally, non-labored breathing Abdominal: lochia (decreased), no distention, appropriately TTP Fundus firm & at: at umbilucus Extremities: negative homans (B) Neurological: no gross focal deficits Psychiatric: A&Ox3, normal affect Result Diagrams: 02/19/17 16:50 02/17/17 22:17 Additional Labs: Post Labs Blood Type A POSITIVE 02/17/17 22:17 Hep Bs Antigen Non-Reactive S/CO (NonReactive) 02/17/17 22:17 (1) Invasive ductal carcinoma of breast Code(s): C50.919 - MALIGNANT NEOPLASM OF UNSP SITE OF UNSPECIFIED FEMALE BREAST Status: Acute Comment: Patient met with Dr. Davies today and planning for mediport placement tomorrow. Further mgmt per gen surg and oncology. (2) Term delivered Code(s): O80 - ENCOUNTER FOR FULL-TERM UNCOMPLICATED DELIVERY Status: Acute Comment: 31 yr old G1 now P1 s/p at 38.5 wks. PPD # 1 Doing well, lochia down and pain well controlled. Routine PP care. Pending plans by gen surg, could DC tomorrow. needs f/u at [facility]. Discuss contraception options with oncology and f/u at 2 wk PP visit.
[2017-02-21] MEDS: Ibuprofen 800 MG TAB PO SCH (06:33)
[2017-02-21] MEDS: Docusate Calcium (SURFAK) 240 MG CAP PO SCH (06:33)
[2017-02-21] MEDS ORDERED: Sodium Chloride 0.9% 10 ML ONE (07:43)
--- NOTE | 2017-02-21 08:46 | PDOC.PP ---
Post Progress Note Post Day #: 2 Subjective: Doing well, she is going for mediport today. Consult to onc made today. No questions of concerns. Was NPO overnight but previously tolerating fod okay. Pain well controlled. Lochia down. PO intake tolerated: yes Flatus: yes Ambulation: yes Weight Weight 85.729 kg - Physical Examination General: NAD Cardiovascular: no m/r/g, RRR Respiratory: clear to auscultation bilaterally, non-labored breathing Abdominal: + bowel sounds, lochia (wnl), no distention, appropriately TTP Extremities: negative homans (B) Neurological: no gross focal deficits Psychiatric: A&Ox3, normal affect Result Diagrams: 02/19/17 16:50 02/17/17 22:17 Additional Labs: Post Labs Blood Type A POSITIVE 02/17/17 22:17 Hep Bs Antigen Non-Reactive S/CO (NonReactive) 02/17/17 22:17 (1) Invasive ductal carcinoma of breast Code(s): C50.919 - MALIGNANT NEOPLASM OF UNSP SITE OF UNSPECIFIED FEMALE BREAST Status: Acute Comment: mediport today. Further mgmt per gen surg and oncology. (2) Term delivered Code(s): O80 - ENCOUNTER FOR FULL-TERM UNCOMPLICATED DELIVERY Status: Acute Comment: 31 yr old G1 now P1 s/p at 38.5 wks. PPD # 2 Doing well, lochia down and pain well controlled. Routine PP care. Could DC today if okay from gen surg. needs f/u at [facility] at 2 wks. Discuss contraception options with oncology and f/u at 2 wk PP visit. Home with donnie. (3) Leukocytosis Code(s): D72.829 - ELEVATED WHITE BLOOD CELL COUNT, UNSPECIFIED Status: Acute Comment: Likely related to post state. No pain and afebrile. <Samantha Murphy - Last Filed: 02/21/17 08:44> Weight Weight 85.729 kg Result Diagrams: 02/19/17 16:50 02/17/17 22:17 Additional Labs: Post Labs Blood Type A POSITIVE 02/17/17 22:17 Hep Bs Antigen Non-Reactive S/CO (NonReactive) 02/17/17 22:17 <Ho Montero - Last Filed: 02/21/17 11:21> Attending Addendum - Attending Addendum I personally evaluated the patient and discussed the management with Dr. Murphy. I agree with the History, Examination, Assessment and Plan documented above with any addition or exceptions noted below. The patient is doing well from a post standpoint. The patient said she feels a lump in her right axilla as well. On my exam there is a palpable mass there. Will try to arrange mammogram/ultrasound and biopsy today. Meidport implant planned for today. We appreciate everyone's help with her care. <Ho Montero - Last Filed: 02/21/17 11:21>
[2017-02-21] MEDS ORDERED: CEFAZOLIN/Water 2 GM/20 ML SYRINGE ONE (12:24)
[2017-02-21] MEDS ORDERED: Bupivacaine/Epinephrine 0.25% 30 ML VIAL ONE (12:36)
[2017-02-21] MEDS ORDERED: HYDROmorphone 0.5 MG/0.5 ML SYRINGE ONE (12:45)
[2017-02-21] MEDS ORDERED: Midazolam HCl 2 mg/2 ml Vial ONE (12:52)
[2017-02-21] MEDS ORDERED: Propofol 500 MG/50 ML VIAL ONE (12:52)
[2017-02-21] MEDS ORDERED: Fentanyl 100 MCG/2 ML VIAL ONE (12:52)
[2017-02-21] MEDS ORDERED: Promethazine HCl 25 MG/ML VIAL IM PRN (13:42)
[2017-02-21] MEDS ORDERED: Promethazine HCl 25 MG/ML VIAL SLOW IVP PRN (13:42)
[2017-02-21] MEDS ORDERED: HYDROmorphone 2 MG/ML VIAL SLOW IVP PRN (13:42)
[2017-02-21] MEDS ORDERED: Ondansetron HCl/PF 4 MG/2 ML Vial IVP PRN (13:42)
[2017-02-21] MEDS ORDERED: HYDROcodone/Acetaminophen 10/325 mg Tablet PO PRN ×2 (14:24)
[2017-02-21] MEDS ORDERED: Morphine PF 1 MG/ML SYR IVP PRN ×2 (14:34→14:35)
--- NOTE | 2017-02-21 14:44 | RAD ---
RADIOGRAPH OF CHEST FRONTAL VIEW: CLINICAL HISTORY: Port placement. FINDINGS: Right venous chest port is present with tip overlying the expected region of the SVC. No obvious pne umothorax identified. Mediastinal structures are maintained at midline. IMPRESSION: Right MediPort placement, as above. POS: [facility]
--- NOTE | 2017-02-21 15:00 | CT ---
CT OF THE CHEST WITH CONTRAST CT OF THE ABDOMEN AND PELVIS WITH CONTRAST: COMPARISON: None. HISTORY: Left breast cancer with enlarged left axillary lymph nodes. The quadrant of the breast is not specif ied on this order. TECHNIQUE: 1. Multiple contiguous axial images were obtained in a CT of the chest with contrast. Coronal refor mats were performed. 2. Multiple contiguous axial images were obtained in a CT of the abdomen and pelvis with contrast. Coronal reformats were performed. FINDINGS: CT CHEST: Atelectasis is seen in both lung bases. No pneumothorax or pleural effusion are seen. No focal nodu les are seen in the lungs. The heart is upper limits of normal in size. No hilar or mediastinal lymphadenopathy are seen. Ther e is a right-sided MediPort with its tip in the superior vena cava. The patient has dense breast parenchyma. The patient's left breast mass cannot be definitely seen. There are enlarged left axillary lymph nodes measuring up to 2.0 cm in size. No enlarged right axill michelle lymph nodes are identified. No internal mammary lymph nodes are seen. CT ABDOMEN/PELVIS: The liver, gallbladder, kidneys, adrenal glands, spleen, and pancreas are unremarkable. No free air, free fluid, or stranding changes are seen in the abdomen or pelvis. The uterus is enlarged and hete rogeneous in appearance. There is a large exophytic fibroid emanating from the anterior aspect of th e uterus measuring 6.7 cm in size. The large and small bowel are unremarkable. The appendix is not definitely seen. No abdominal or pelvic lymphadenopathy are present. No suspicious osseous lesions are seen in the skeleton. The abdominal wall soft tissues are unremark able. IMPRESSION: 1. Multiple enlarged left axillary lymph nodes likely represent metastatic disease to the left axill a. 2. The patient's left breast mass cannot be definitely seen and may have been excised. The patient has dense breast tissue and a mass that could be easily hidden within the dense parenchyma. 3. Bilateral basilar atelectasis without evidence of intrathoracic metastatic disease. 4. Enlarged uterus with anterior uterine fibroid. 5. No evidence of intraabdominal/pelvic metastatic disease. POS: [facility]
[2017-02-21] MEDS ORDERED: ISOVUE-370 76%-LOCM 1 ML ONE (15:47)
--- NOTE | 2017-02-21 16:35 | CON ---
DATE OF CONSULTATION: 02/21/2017 REASON FOR CONSULTATION: Breast cancer. HISTORY OF PRESENT ILLNESS: Ms. Mcgowan is a 31-year-old Jordanian speaking only female who presented to the [facility] 2 months ago due to . She noticed a left breast mass 2 months ago on self-exam. She underwent an ultrasound guided breast mass. She also had a left axillary lymph node biopsy. Pathology showed grade II invasive ductal carcinoma. The lymph node was positive. She was estrogen and progesterone receptors were mildly positive, HER 2 was negative. She is essentially a triple negative breast cancer. The patient was 38 weeks and had a successful delivery earlier this week. The plan is to place a MediPort this morning by Dr. Davies. The patient noted a right axillary lymph node this morning. We were asked to see the patient regarding our recommendations. business continuity manager was used as an pit boss. PAST MEDICAL HISTORY: Newly diagnosed invasive ductal carcinoma of the left breast and axilla. PAST SURGICAL HISTORY: Breast biopsy. ALLERGIES: No known drug allergies. HOME MEDICATIONS: None. FAMILY HISTORY: Her father had gastric cancer and is . No family history of breast, cervical or ovarian cancer. SOCIAL HISTORY: . This is her first child. No alcohol, tobacco or illicit drug use. REVIEW OF SYSTEMS: Twelve point review of systems is negative. PHYSICAL EXAMINATION: VITAL SIGNS: Temperature is 98.4, pulse 74, respiratory rate 18, BP is 101/55. GENERAL: Well-developed, well-nourished female in no acute distress. HEENT: Normocephalic, atraumatic. Pupils equal and reactive to light. NECK: Supple. CARDIOVASCULAR: Regular rate and rhythm. LUNGS: Clear. ABDOMEN: Obese, soft, and nontender, no organomegaly. Bowel sounds are positive. EXTREMITIES: No clubbing, cyanosis or edema. SKIN: No rash. BREASTS: Her left breast has a large palpable mass at the 2 o'clock position. Her right breast is firm, likely secondary to breastmilk. There is a small <1 cm palpable lymph node in the right axilla. NEUROLOGIC: Nonfocal. PSYCHIATRIC: The patient is alert and oriented and appropriate. PERTINENT LABORATORY AND X-RAYS: Current WBC 20.3, hemoglobin 12.2, hematocrit 36.0, platelet count 165,000, 79% neutrophils, 11% bands, 9% neutrophils. Sodium is 137, potassium 4.0, chloride 106, CO2 is 20, BUN is 11, creatinine 0.64, calcium is 9.1, total bilirubin is 0.3, AST 13, ALT 11, alkaline phosphatase is 100. Serum total protein is 6, albumin 3.2, globulin 2.8. IMPRESSION: 1. Successful delivery of a term infant. 2. Left breast invasive ductal carcinoma. DISCUSSION: The patient has not been fully staged. Given the new finding of a right axillary lymph node, we will order a CT scan of the chest, abdomen, and pelvis. Should she have any metastatic disease elsewhere, then a biopsy will not be needed of this right lymph node. If this is the only site worrisome for malignancy beside her known disease, will have an ultrasound guided needle biopsy prior to discharge. Would proceed with the MediPort today as she will need chemotherapy. Surgery and radiation after chemotherapy if she does not have metastatic disease . Thank you for the consult of this pleasant young lady. NAVIN
[2017-02-21 19:34] VITALS: TEMP 98.2
[2017-02-21 19:38] VITALS: BP 124/64
--- NOTE | 2017-02-22 07:59 | OP ---
DATE OF PROCEDURE: 02/21/2017 PREOPERATIVE DIAGNOSIS: Left breast cancer T3 N1 clinical stage POSTOPERATIVE DIAGNOSES: Left breast cancer T3 N1 clinical stage PROCEDURE: Tunneled central line with subcutaneous port, CT injectable (MediPort). SURGEON: Dr. Felipe Davies ANESTHESIA: General. ESTIMATED BLOOD LOSS: Minimal. COMPLICATIONS: None. FINDINGS: Tip of the catheter was at atriocaval junction. PROCEDURE IN DETAIL: The patient was taken to the operating room and placed supine on the table. Af ter general anesthetic was obtained, the bilateral neck and chest were prepped and draped in a steril e fashion. Local anesthetic infiltrated over the right internal jugular vein. Internal jugular vein was cannulated using a 22-gauge finder needle followed by a Seldinger needle. Wire was passed into the superior vena cava under fluoroscopic guidance. A small aaron was made at the wire entrance site. A separate 3-cm incision was made in the right upper chest. Tubing for the MediPort tunneled from the inferior to the superior incision. Introducer sheath was placed over the wire into the superior vena cava under fluoroscopic guidance. The dilator and wire were removed. The end of the catheter w as threaded into the sheath and the sheath is peeled away. The tip of the catheter was at the atrioc aval junction. MediPort tubing is cut to fit the MediPort at the lower incision, connected to the Me diPort. The MediPort sewn to the chest wall in the subcutaneous pocket using Prolene. The MediPort flushes and draws blood without difficulty. It is flushed with a heparin solution with a heparin flu sh. All incisions were irrigated and closed using 4-0 Monocryl and Dermabond. The patient was en ro [place] to recovery in stable condition. All instrument counts, needle counts, and lap counts were corre ct.
== END 2017-02-21 19:20 | disposition home or self-care (01) | DRG 775 ==
LOC: L&D/OP 21:01 → L&D 21:58 → 3SW 02-19 16:27
PROVIDERS: ADMIT Student in an Organized Health Care Education/Training Program; ATTEND Student in an Organized Health Care Education/Training Program
PROC: 0U7C7ZZ Dilation of Cervix, Via Natural or Artificial Opening (ICD-10-PCS; 2017-02-17)
PROC: 3E033VJ Introduction of Other Hormone into Peripheral Vein, Percutaneous Approach (ICD-10-PCS; 2017-02-17)
PROC: 3E0P7VZ Introduction of Hormone into Female Reproductive, Via Natural or Artificial Opening (ICD-10-PCS; 2017-02-18)
PROC: 10E0XZZ Delivery of Products of Conception, External Approach (ICD-10-PCS; principal; 2017-02-19)
PROC: 0KQM0ZZ Repair Perineum Muscle, Open Approach (ICD-10-PCS; 2017-02-19)
PROC: 10H07YZ Insertion of Other Device into Products of Conception, Via Natural or Artificial Opening (ICD-10-PCS; 2017-02-19)
PROC: 4A1H74Z Monitoring of Products of Conception, Cardiac Electrical Activity, Via Natural or Artificial Opening (ICD-10-PCS; 2017-02-19)
PROC: 0JH60WZ Insertion of Totally Implantable Vascular Access Device into Chest Subcutaneous Tissue and Fascia, Open Approach (ICD-10-PCS; 2017-02-21)
PROC: 02HV33Z Insertion of Infusion Device into Superior Vena Cava, Percutaneous Approach (ICD-10-PCS; 2017-02-21)
DX: O9A.12 Malignant neoplasm complicating childbirth (principal); C77.3 Secondary and unspecified malignant neoplasm of axilla and upper limb lymph nodes; D69.6 Thrombocytopenia, unspecified; O99.119 Other diseases of the blood and blood-forming organs and certain disorders involving the immune mechanism complicating pregnancy, unspecified trimester; C50.912 Malignant neoplasm of unspecified site of left female breast; O70.1 Second degree perineal laceration during delivery; Z3A.38 38 weeks gestation of pregnancy; Z37.0 Single live birth
CPT/HCPCS: 36415; 51702; 71045; 71260; 74177; 80053; 85025; 85027; 86780; 86850; 86900; 86901; 87340; A4216; C1726; C1788; J1170; J1642; J2001; J2250; J2405; J2704; J3010; J7120

== ENCOUNTER 2017-03-22 12:05 | Day surgery (SDC) | payer OTHER, SELFPAY ==
[2017-03-22] MEDS ORDERED: DOXORUBICIN 100 MG in Sodium Chloride 0.9% 50 ML IVPB SCH (12:45)
[2017-03-22] MEDS ORDERED: PALONOSETRON HCL 0.05 MG/ML 5 ML VIAL IVP SCH (13:00)
[2017-03-22] MEDS ORDERED: Pegfilgrastim 6 MG/0.6 ML Delivery Kit SQ SCH (13:00)
[2017-03-22] MEDS ORDERED: Dexamethasone 4 mg/ml Vial SLOW IVP SCH (13:00)
[2017-03-22] MEDS ORDERED: Cyclophosphamide 1 GM in Sodium Chloride 0.9% 250 ML 250 ML IVPB SCH (13:00)
[2017-03-22] MEDS ORDERED: Sodium Chloride 0.9% 40 ML ONE (13:21)
[2017-03-22 17:09] VITALS: BP 110/66; TEMP 98.5
== END 2017-03-22 17:13 | disposition home or self-care (01) ==
LOC: ONC/OP 12:05
PROVIDERS: ATTEND Internal Medicine Hematology & Oncology
DX: Z51.11 Encounter for antineoplastic chemotherapy (principal); C50.412 Malignant neoplasm of upper-outer quadrant of left female breast; Z17.0 Estrogen receptor positive status [ER+]; Z80.0 Family history of malignant neoplasm of digestive organs
CPT/HCPCS: 96367; 96372; 96375; 96377; 96413; 96417; A4216; J1100; J1453; J1642; J2469; J2505; J7050; J9000; J9070

== ENCOUNTER 2017-03-27 18:35 | Inpatient (IN) | payer MEDICAID, OTHER ==
[2017-03-27 19:32] LABS: Hemoglobin 16.3 g/dL (12.0-16.0); Mean Corpuscular HGB CONC 33.3 g/dL (32.0-36.0); Mean Corpuscular Hemoglobin 29.2 pg (27.0-31.0); Mean Corpuscular Volume 87.7 fl (81.0-99.0); Mean Platelet Volume 8.5 fL (7.4-10.4); Platelet Count 226 thou/uL (130-400); RBC Distribution Width 12.7 % (11.5-14.5); Red Blood Cell (RBC) Count 5.57 mill/uL (4.20-5.40); White Blood Cell (WBC) Count 11.5 thou/uL (4.8-10.8)
[2017-03-27 19:38] LABS: BHCG - Serum Negative (NEGATIVE); Pregs Control Background? CLEAR/WHITE (CLR/WHITE); Pregs Control Bar Appear? YES (CONTROL BAR)
[2017-03-27 19:48] LABS: ALT (SGPT) 544 U/L (8-55); AST (SGOT) 472 U/L (5-34); Albumin 4.4 g/dL (3.5-5.0); Alkaline Phosphatase 327 U/L (40-150); Anion Gap 15 mmol/L (10-20); BUN (Urea Nitrogen) 12 mg/dL (7.0-18.7); Bilirubin, Total 2.6 mg/dL (0.2-1.2); Calc. Creatinine Clearance 0 mL/min (70-130); Calcium 9.4 mg/dL (7.8-10.44); Carbon Dioxide 21 mmol/L (22-29); Chloride 105 mmol/L (98-107); Estimated GFR-MDRD Greater than 90; Globulin 3.4 g/dL (2.4-3.5); Glucose 229 mg/dL (70-105); Potassium 3.6 mmol/L (3.5-5.1); Protein, Total 7.8 g/dL (6.0-8.3); Sodium 137 mmol/L (136-145)
[2017-03-27 19:53] LABS: Band 5 % (5-11); Lymphocytes 1 % (21-51); MDiff Complete? YES; Monocytes 2 % (0-10); Neutrophil 92 % (42-75); PLT Morphology Comment Appears Adequate
[2017-03-27 20:03] LABS: Lipase 2376 U/L (8-78)
[2017-03-27 20:07] LABS: Bilirubin Moderate (Negative); Blood, Urine Negative (Negative); Clarity CLEAR (Clear); Glucose, Urine (Dipstick) 500 mg/dL (Negative); Leukocyte Small (Negative); Nitrite Positive (Negative); Protein, Urine (Dipstick) Trace mg/dL (Neg-Trace); Specific Gravity, Urine 1.017 (1.002-1.036)
[2017-03-27 20:10] LABS: Bacteria/HPF None Seen HPF (None Seen); Hyaline Casts/LPF 0-3 HYALINE CAST LPF (0-3 Hyaline); RBC/HPF 0-3 HPF (0-3); Squamous Epithelial 0-3 HPF (0-3); WBC/HPF 0-3 HPF (0-3)
[2017-03-27] MEDS ORDERED: Ondansetron HCl/PF 4 MG/2 ML Vial ONE (20:17)
[2017-03-27] MEDS ORDERED: Meropenem 1 GM in Sterile Water 20 ML SLOW IVP SCH (20:30)
--- NOTE | 2017-03-27 21:28 | ULT ---
GALLBLADDER ULTRASOUND: Indication: Right upper quadrant pain. Epigastric pain. FINDINGS: Cholelithiasis is present. Gallbladder wall is borderline in size at 3 mm. There is pericholecystic f luid demonstrated. The common duct is dilated at 11 mm. There is also prominence of the intrahepatic biliary ductal system. Page's sign is reported as positive by the mitering machine operator. No focal hepatic les ion. IMPRESSION: Cholelithiasis and evidence of biliary ductal obstruction. There is also borderline wall prominence a nd pericholecystic fluid with a positive Page's sign. Findings indicate acute obstructive cholecyst itis. Recommend urgent surgical consultation. POS: [facility]
[2017-03-28] MEDS ORDERED: Ondansetron HCl/PF 4 MG/2 ML Vial IVP PRN (00:06)
[2017-03-28] MEDS ORDERED: Promethazine HCl 25 MG/ML VIAL IM PRN (00:06)
[2017-03-28] MEDS ORDERED: Morphine 4 MG/ML Carpuject SLOW IVP PRN (00:06)
[2017-03-28] MEDS ORDERED: cefTRIAXone\\ROCEPHIN 1 GM in Sodium Chloride 0.9% 100 ML IVPB SCH (00:15)
[2017-03-28] MEDS ORDERED: cefTRIAXone\\ROCEPHIN 1 GM, Syringe 0.4 ML in Sterile Water 9.6 ML SLOW IVP SCH (00:30)
[2017-03-28] MEDS: Sodium Chloride 0.9% 1,000 ML IV SCH ×11 (00:55→22:09)
--- NOTE | 2017-03-28 01:46 | HP-2 ---
TIME AND DATE OF SERVICE: 2030 hours on 03/27/2017 CODE STATUS: FULL CODE. PRIMARY CARE PHYSICIAN: City call. ATTENDING: Jaleesa Hughes MD RESIDENT: Kelby Alamo MD HISTORIAN: The patient. SPECIALIST: David Myers MD, Oncology CHIEF COMPLAINT: Abdominal pain. HISTORY OF PRESENT ILLNESS: Kianna Mcgowan is a 31-year-old female with a past medical histor y of invasive ductal carcinoma of the left breast, who is currently being treated with chemotherapy, who presents with abdominal pain that started today, it was acute onset. She describes the pain as d ull, constant pain all over her abdomen, but worsened in the right upper quadrant, is worsened with f ood, associated with vomiting. She last received chemotherapy on 03/24/2017. She recently delivered a baby on 02/19/2017 via normal spontaneous vaginal delivery. She was diagnosed with breast cancer around that time, had a MediPort placed on 02/22/2017. Her current symptoms are associated with decr eased appetite. She has not eaten since yesterday. She has never been told that she has gallstones. She does state that she has had constipation lately. Her last bowel movement was yesterday. In e ER, she received meropenem, 2 liters of normal saline, morphine, and Zofran. PAST MEDICAL HISTORY: Invasive ductal carcinoma of the left breast. PAST SURGICAL HISTORY: Right MediPort placement. ALLERGIES: No known drug allergies. MEDICATIONS: None. She is getting neoadjuvant chemotherapy (Taxol) weekly x12 total weeks, managed by Dr. Myers. FAMILY HISTORY: Noncontributory. SOCIAL HISTORY: Patient denies tobacco, drugs, or alcohol use. REVIEW OF SYSTEMS: Twelve point review of systems including general, eyes, ENT, respiratory, CV, GI, , skin, musculoskeletal, neuro, and psych were all reviewed and were negative, unless otherwise st ated in the HPI. PHYSICAL EXAMINATION: VITAL SIGNS: Blood pressure 117/95, pulse 122, respiratory rate 16, temperature 99.5, pulse ox 96% o n room air. Current weight 72 kilograms. GENERAL: The patient is alert and oriented x4, in no acute distress, well-developed, well-nourished, and appropriately interactive. EYES: Pupils equal, round, reactive to light and accommodation. Extraocular muscles are intact. Co njunctivae within normal limits. ENT: Tympanic membranes are pearly cordova without bulging or erythema. Nasal mucosa and oropharynx wi thin normal limits. NECK: Supple without lymphadenopathy or thyromegaly. CARDIOVASCULAR: Regular rate and rhythm. No murmurs or gallops. Radial and pedal pulses equal. RESPIRATORY: Normal effort, no retractions. LUNGS: Clear to auscultation bilaterally. SKIN: Warm and dry without cyanosis or lesions. ABDOMEN: Soft, diffuse tenderness to palpation mostly in the right upper quadrant. Positive Page sign. No guarding present. No rebound tenderness. Bowel sounds normoactive. No masses or distenti on. EXTREMITIES: No clubbing, cyanosis or edema. MUSCULOSKELETAL: Structure and tone within normal limits. Full range of motion. NEUROLOGIC: No focal deficits. Sensation within normal limits. PSYCHIATRIC: Appropriate. LABORATORY DATA: White blood cell count 11.5, hemoglobin 16.3, hematocrit 48.8, neutrophils 92%, ban ds 5%, platelets 226. Sodium 137, potassium 3.6, chloride 105, carbon dioxide 21, BUN 12, creatinine 0.65, glucose 229, calcium 9.4, total protein 7.8, albumin 4.4, total bilirubin 2.6, AST 472, ALT 54 4, alkaline phosphatase 327. Beta hCG was negative. Lipase 2376. UA was significant for trace prot ein, small leukocyte esterase, positive nitrites, trace ketones, 500 glucose, 0-3 red blood cells, 0- 3 white blood cells, no bacteria, moderate bilirubin. ASSESSMENT AND PLAN: Kianna Sanders is a 31-year-old recently delivered with sudden o nset abdominal pain. 1. Acute pancreatitis, moderately severe secondary to gallstones. Admit Oncology. Consult to Dr. Kendall arrdarrell with General Surgery. Recommended aggressive IV fluids. Repeat labs in the morning. We will start normal saline at 200 mL an hour. Continue to monitor BUN, hematocrit, creatinine, IV pain con trol. We will restart feeds once symptoms have resolved. 2. Left breast cancer, patient of Dr. Myers currently on weekly Taxol. We will inform Dr. Myers of the patient's admission in the morning. 3. Possible urinary tract infection. IV Rocephin. Urine cultures pending. 4. Code status: FULL CODE. 5. Activity: Ad michael. 6. Diet: N.p.o. DISPOSITION AND LENGTH OF HOSPITAL STAY: 2-3 days. Symptomatic medication will be provided. History and physical exam as well as management discussed with Dr. Hughes.
[2017-03-28 06:04] LABS: Anion Gap 13 mmol/L (10-20); BUN (Urea Nitrogen) 13 mg/dL (7.0-18.7); Calc. Creatinine Clearance 157 mL/min (70-130); Calcium 8.2 mg/dL (7.8-10.44); Carbon Dioxide 21 mmol/L (22-29); Cardiac Risk 2.2 (Less than 4.5); Chloride 110 mmol/L (98-107); Cholesterol 120 mg/dl (< 200 Desired); Estimated GFR-MDRD Greater than 90; Glucose 141 mg/dL (70-105); HDL Cholesterol 54 mg/dL (>60 Neg Risk); LDL Cholesterol, Calculated 56 mg/dL; Potassium 3.5 mmol/L (3.5-5.1); Sodium 140 mmol/L (136-145); Triglycerides 49 mg/dL (Less than 150)
[2017-03-28 06:05] LABS: ALT (SGPT) 343 U/L (8-55); AST (SGOT) 135 U/L (5-34); Albumin 3.3 g/dL (3.5-5.0); Alkaline Phosphatase 233 U/L (40-150); Bilirubin, Direct 0.6 mg/dL (0.1-0.3); Bilirubin, Total 1.2 mg/dL (0.2-1.2)
--- NOTE | 2017-03-28 06:56 | PDOC.FM ---
- Objective MAR Reviewed: Yes Vital Signs & Weight: Vital Signs (12 hours) Temp Pulse Resp BP Pulse Ox 03/28/17 04:00 99.7 F H 128 H 24 H 108/59 L 95 03/28/17 00:06 95 03/27/17 23:30 99.6 F 114 H 24 H 95 03/27/17 23:05 99.6 F 114 H 24 H 128/82 95 Weight Weight 78.245 kg I&O: 03/26/17 03/27/17 03/28/17 06:59 06:59 06:59 Intake Total 1075 Balance 1075 Result Diagrams: 03/28/17 05:24 03/28/17 05:24 <Neela Tovar - Last Filed: 03/28/17 11:16> - Objective Vital Signs & Weight: Vital Signs (12 hours) Temp Pulse Resp BP Pulse Ox 03/28/17 15:59 99.0 F 135 H 44 H 118/69 92 L 03/28/17 15:00 97.3 F L 128 H 44 H 120/70 93 L 03/28/17 14:00 98.3 F 125 H 44 H 121/69 94 L 03/28/17 12:20 98.5 F 144 H 44 H 110/74 93 L 03/28/17 10:20 98.5 F 115 H 40 H 120/70 03/28/17 08:00 98.4 F 124 H 16 95 03/28/17 07:05 98.4 F 124 H 16 117/66 95 Weight Weight 78.245 kg I&O: 03/27/17 03/28/17 03/29/17 06:59 06:59 06:59 Intake Total 1075 3550 Output Total 100 Balance 1075 3450 Result Diagrams: 03/28/17 05:24 03/28/17 05:24 <Elis Cook - Last Filed: 03/28/17 17:05> Dx/Plan (1) Acute gallstone pancreatitis Code(s): K85.10 - BILIARY ACUTE PANCREATITIS WITHOUT NECROSIS OR INFECTION Status: Acute (2) Invasive ductal carcinoma of breast Code(s): C50.919 - MALIGNANT NEOPLASM OF UNSP SITE OF UNSPECIFIED FEMALE BREAST Status: Acute (3) Leukocytosis Code(s): D72.829 - ELEVATED WHITE BLOOD CELL COUNT, UNSPECIFIED Status: Acute (4) Sepsis Code(s): A41.9 - SEPSIS, UNSPECIFIED ORGANISM Status: Acute - Plan Plan: 31 yo f with a pmhx of invasive ductal carcinoma and recent delivery via csection, presents with n/v, admitted for gallstone pancreatitis. 1.)Sepsis 2/2 Gallstone Pancreatitis-Pt was admitted to oncology; Is persistently tachycardic. Dr. Marquez consulted who recommended a 2L NS bolus of fluids. We will trend her labs and continue to monitor her vitals. If she worsens, we will transfer her to ICU. The LFTs downtrended from initial admission. We will continue to monitor her labs and hold off on consulting GI for an ERCP at this time. Continue aggressive fluid resuscitation and bowel rest. We ordered zosyn for prophylactic antibiotics. She may need a cholicystectomy at a later date. We will continue to control patient's pain as well. 2.) Invasive ductacl carcinoma-We will consult Dr. Myers to him aware that his patient is here. <Neela Tovar - Last Filed: 03/28/17 11:16> Attending Addendum - Attending Addendum I personally evaluated the patient and discussed the management with Dr. Tovar. I agree with the History, Examination, Assessment and Plan documented above with any addition or exceptions noted below. The patient continues to have RUQ abdominal pain. She is tachycardic. Will bolus IV fluids, change antibiotics to zosyn. Appreciate Dr. Davies's consultation. If patient decompensates, she will need to be moved to the ICU. Blood pressure is currently stable. <Elis Cook - Last Filed: 03/28/17 17:05>
[2017-03-28] MEDS ORDERED: Morphine 4 MG/ML Carpuject IVP PRN (07:19)
[2017-03-28] MEDS ORDERED: Acetaminophen 1,000 MG in Premix Bag 1 BAG IVPB PRN (07:21)
--- NOTE | 2017-03-28 07:34 | CON ---
DATE OF CONSULTATION: 03/28/2017 CHIEF COMPLAINT: Gallstone pancreatitis. HISTORY OF PRESENT ILLNESS: This is a 31-year-old female who I actually know before, she wa s recently diagnosed with metastatic breast cancer. I previously in the period I had rece ntly placed a MediPort. She had one round of chemotherapy last . She is due for her next ro und in a week from this coming . She notes a 3-day history of pain in her epigastric left up per quadrant and right upper quadrant that is worsening associated with nausea and vomiting. She has not been able to keep much down in the last 24 hours. She has not been urinating much either. She thought maybe these symptoms were related to her chemotherapy. She has never had known jaundice, deng creatitis, or gallstones diagnosed in the past. Her ultrasound does show gallstones and a dilated co mmon bile duct. PAST MEDICAL HISTORY: Includes metastatic left breast cancer. PAST SURGICAL HISTORY: MediPort. MEDICINES TAKEN DAILY: None. ALLERGIES: No known drug allergies. SOCIAL HISTORY: No smoking, alcohol or other drugs. REVIEW OF SYSTEMS: Ten system review of systems otherwise negative unless described above. PHYSICAL EXAMINATION: VITAL SIGNS: Blood pressure 108/59, pulse is 128, respirations are 24, temperature 99.7. HEENT: Sclerae are anicteric. Oropharynx clear. NECK: No lymphadenopathy. CHEST: Clear. HEART: Increased rate, regular rhythm without murmur. ABDOMEN: Her abdomen is soft, tender in the epigastric right upper quadrant, she has localized guard ing in the right upper quadrant without rebound tenderness. LABORATORY: White blood cell count is 11, hemoglobin 16, platelet count is 226, sodium 140, potassiu m 3.5, carbon dioxide 110. Direct bilirubin 0.6, lipase 2376 last night. Ultrasound shows evidence of cholecystitis with pericholecystic fluid, gallbladder wall thickening, dilated common bile duct. ASSESSMENT: 1. Gallstone pancreatitis with elevation of liver function tests, although from an obstructive stand point her liver tests are improved today with normalizing bilirubin. 2. Shock from hypovolemia. PLAN: She needs more aggressive resuscitation. She needs bolused IV fluid, not increase maintenance rate. I will write for that. Need to titrate fluid resuscitation to urine output, allow her pancre atitis to improve, potentially laparoscopic cholecystectomy with cholangiogram in the next 2 days. I f she worsens hemodynamically she will need to be transferred to the unit.
[2017-03-28] MEDS: Enoxaparin Sodium 40 MG/0.4 ML SYRINGE SC SCH (08:01)
[2017-03-28 08:52] LABS: Band 13 % (5-11); Hemoglobin 16.2 g/dL (12.0-16.0); Lymphocytes 7 % (21-51); MDiff Complete? YES; Mean Corpuscular HGB CONC 33.7 g/dL (32.0-36.0); Mean Corpuscular Hemoglobin 29.7 pg (27.0-31.0); Mean Corpuscular Volume 88.2 fl (81.0-99.0); Mean Platelet Volume 8.5 fL (7.4-10.4); Monocytes 10 % (0-10); Neutrophil 70 % (42-75); Platelet Count 194 thou/uL (130-400); Red Blood Cell (RBC) Count 5.44 mill/uL (4.20-5.40); White Blood Cell (WBC) Count 8.6 thou/uL (4.8-10.8)
[2017-03-28] MEDS: Piperacillin/Tazobactam 3.375 GM in Sodium Chloride 0.9% 100 ML IVPB SCH ×3 (10:31→22:09)
[2017-03-28] MEDS ORDERED: Iopamidol 370 76% 100 ML VIAL ONE (13:24)
[2017-03-28] MEDS ORDERED: Propofol 200 MG/20 ML VIAL ONE (14:03)
[2017-03-28] MEDS ORDERED: Succinylcholine Chloride 20 MG/ML 10 ml SYRINGE FS ONE (14:03)
[2017-03-28] MEDS ORDERED: ePHEDrine/0.9% NaCl/PF SYRINGE 50 mg/10 ml ONE (14:03)
[2017-03-28] MEDS ORDERED: Ondansetron HCl/PF 4 MG/2 ML Vial ONE (14:03)
[2017-03-28] MEDS ORDERED: Ketorolac Tromethamine 30 MG/ML VIAL ONE (14:03)
[2017-03-28] MEDS ORDERED: Lidocaine 1% PF 5 ML VIAL ONE (14:03)
[2017-03-28] MEDS ORDERED: PHENYLEPHRINE-NS 100 MCG/ML 10 ML SYRINGE ONE (14:03)
[2017-03-28] MEDS ORDERED: Esmolol 100 MG/10 ML VIAL ONE (14:03)
[2017-03-28] MEDS ORDERED: Dexamethasone 20 MG/5 ML VIAL ONE (14:03)
--- NOTE | 2017-03-28 14:06 | MRI ---
MRI ABDOMEN WITHOUT CONTRAST: Date: 03/28/17 HISTORY: Choledocholithiasis. Right upper quadrant pain. FINDINGS: Numerous calculi are seen in the gallbladder and the common bile duct. There is pericholecystic infla mmation and fluid. There is free fluid in the abdomen. There are inflammatory regions in the peripanc reatic region with presence of fluid as well. There is free fluid in the upper abdomen. The common du ct measures 1.0 cm in diameter. There is mild intrahepatic ductal dilatation. The spleen and kidneys are unremarkable. Bone marrow signal is normal. IMPRESSION: 1. Cholelithiasis. 2. Choledocholithiasis. 3. Findings suspicious for acute cholecystitis. 4. Pancreatitis. CODE T POS: PATRICE
--- NOTE | 2017-03-28 15:14 | CT ---
CT ANGIOGRAM OF THE CHEST INCLUDING 3D RENDERING: History: 31-year-old female with shortness of breath, tachycardia, recent , one month. Comparison: Chest, abdomen, and pelvic CT scan 02-21-17. FINDINGS: There is evidence for some enlargement of the left breast with some skin and subcutaneous thickening and fat stranding, as well as some adenopathy in the left axilla with several of these nodes appearin g to minimally increase in size, one of which now measures 1.9 cm where it previously measured 1.6 cm . There are small bilateral pleural effusions and posterior parenchymal changes in the mid and lower shyla ng zones, evidence for some subsegmental atelectasis and/or marked dependent positioning. No signific ant CT evidence for acute pulmonary embolism, particularly in the region of the proximal pulmonary ar patricia segments. The more distal pulmonary artery branches, particularly in the lower and midlung zones , are less than optimally evaluated because of motion artifact. No evidence of pericardial effusion. There is fairly extensive ascites within the visualized abdomen with some fluid and fat stranding smitha und the region of the pancreas as well as the region of the gallbladder. These abdominal changes are new when compared to the prior 03-03-17 study. IMPRESSION: No central pulmonary artery thromboembolism. The more peripheral pulmonary arteries are somewhat less than optimally evaluated because of motion artifact and decreased contrast bolus. Small bilateral pl eural effusions and prominent posterior bilateral pleural based parenchymal changes, evidence for sub segmental atelectasis and/or secondary to prominent dependent positioning. Left axillary adenopathy. At least one node is increased in size from the prior study as well as developing left breast skin th ickening and subcutaneous nonspecific fat stranding. Interval development of fairly marked ascites wi th some fluid around the region of the pancreas and pericholecystic fluid with probable gallstones an d possible concern for acute cholecystitis. POS: OFF
--- NOTE | 2017-03-28 15:28 | PDOC.EVN ---
Event Note - Event Note Event Note: Pt has been persistently tachycardic and tachypnic since I saw her this morning. Ordered a CTA chest to evaluate for a pulmonary embolism. She was also seen by GI and an MRI abdomen was obtained which showed cholecystitis and pancreatitis. She is currently getting fluids, is NPO, and pain is controlled however d/t persistent tachycardia despite 3L of fluid boluses plus maintenance , we will transfer her to the ICU for closer monitoring.
--- NOTE | 2017-03-28 15:33 | EKG ---
Test Reason : Blood Pressure : / mmHG Vent. Rate : 132 BPM Atrial Rate : 132 BPM P-R Int : 132 ms QRS Dur : 076 ms QT Int : 298 ms P-R-T Axes : 030 082 012 degrees QTc Int : 441 ms Sinus tachycardia Nonspecific ST and T wave abnormality Abnormal ECG Confirmed by LEONOR CALIX ([id number]) on 03/28/2017 3:33:45 PM Referred By: LINDA Confirmed By:LEONOR CALIX
[2017-03-28] MEDS ORDERED: Sodium Chloride 0.9% 1,000 ML IV SCH (17:00)
[2017-03-28 17:40] LABS: ALT (SGPT) 205 U/L (8-55); AST (SGOT) 50 U/L (5-34); Alkaline Phosphatase 162 U/L (40-150); Bilirubin, Direct 0.5 mg/dL (0.1-0.3); Protein, Total 5.8 g/dL (6.0-8.3)
[2017-03-28] MEDS ORDERED: Iothalamate Meglumine 60% 50 ML VIAL FS ONE (18:37)
[2017-03-28] MEDS ORDERED: B & O ONE (18:37)
[2017-03-28] MEDS ORDERED: Fentanyl 100 MCG/2 ML VIAL ONE ×2 (18:45→20:52)
--- NOTE | 2017-03-28 18:52 | CON ---
DATE OF CONSULTATION: 03/28/2017 CONSULTING PHYSICIAN: Dr. Camacho from the Family Medicine Residency Service. REASON FOR CONSULTATION: Sepsis related to gallstone pancreatitis and cholecystitis. HISTORY OF THE PRESENT ILLNESS: The patient is a 31-year-old female who was admitted to the hospital earlier today by the Residency Service with complaints of abdominal pain and vomiting. Over the course of the day, she has become more tachycardic. Imaging has demonstrated common bile duct stones as well as stones in the gallbladder. There is inflammation around the gallbladder. There is also inflammation around the head of the pancreas. Common duct is measuring 1 cm with mild and her hepatic ductal dilatation by MRI. The patient is status post recent chemotherapy for invasive ductal carcinoma of the breast. She also recently delivered a baby in mid February. PAST MEDICAL HISTORY: Invasive ductal carcinoma of left breast. PAST SURGICAL HISTORY: She had a recent right MediPort placement. ALLERGIES: None. MEDICATIONS PRIOR TO ADMISSION: Nothing except the recent Taxol chemotherapy given. FAMILY MEDICAL HISTORY: Unremarkable for cardiopulmonary disease. SOCIAL HISTORY: She is a nonsmoker. Does not drink alcohol. Does not use illicit drugs. REVIEW OF SYSTEMS: Remarkable for abdominal pain and vomiting. She has had no diarrhea. She is short of breath. She has had no hematemesis, melena, hematochezia, hematuria, or dysuria. PHYSICAL EXAMINATION: VITAL SIGNS: Temperature is 99.0, pulse ranging between 135 and 150, respiratory rate in the mid 30s to low 40s, O2 sat is 100% on 2 liters and blood pressure 118/69. GENERAL: Surprisingly, she is not in much distress at all. She is able to communicate without limitations. HEENT: Pupils react. Sclerae are anicteric. Oropharynx clear. NECK: No JVD. LUNGS: She has diminished breath sounds in both bases. CARDIAC: S1 and S2 tachycardic without audible murmur. ABDOMEN: Diffuse mild tenderness in the epigastric region to deep palpation. She has no rebound. SKIN: No rashes present. No bruising. EXTREMITIES: No clubbing, cyanosis, or edema. NEUROLOGIC: Grossly intact throughout. LABORATORY DATA: White blood cell count 8.6, hemoglobin 16, hematocrit 48 and platelet count 194. Sodium 140, potassium 3.5, chloride 110, CO2 of 21, BUN 13 , creatinine 0.6, glucose 141, AST 135, ALT 343, alkaline phosphatase 233 and lipase was 2376. C-reactive protein 17.4. IMAGING FINDINGS: Chest x-ray shows low lung volumes. CT pulmonary angiogram showed no evidence of pulmonary emboli. She has a very small effusions with atelectasis near that. ASSESSMENT: 1. Gallstone pancreatitis with cholecystitis. 2. Systemic inflammatory response syndrome. RECOMMENDATIONS: Discussed with Dr. Davies from General Surgery. He is recommending aggressive fluid resuscitation, which will take place in the CCU. Dr. Page from GI will be seeing the patient to further assess. The patient is on Zosyn for IV antibiotic coverage, which should be adequate given the situation. A Darby catheter will be inserted to monitor urine output and she may require more fluids during the night. Ultimately, she will need a cholecystectomy and perhaps ERCP. 70 minutes time was spent on this consultation. Of those 70 min, greater than 50% of the time was spent on counseling and coordination of care MTDD
[2017-03-28] MEDS ORDERED: Indomethacin 50 MG SUPP ONE (19:08)
[2017-03-28] MEDS ORDERED: Indomethacin 50 MG SUPP PR SCH (19:15)
--- NOTE | 2017-03-28 19:37 | CON ---
DATE OF CONSULTATION: 03/28/2017 REASON FOR CONSULTATION: Possible choledocholithiasis CONSULTING PHYSICIAN: Lisa Tovar M.D. HISTORY OF PRESENT ILLNESS: The patient is a 31-year-old female with past medical history of invasiv e ductal carcinoma of the left breast and recent spontaneous vaginal delivery of her child (G1, P1) p resenting with acute onset of abdominal pain. She said that she was in her usual state of health unt il approximately yesterday morning when she had the acute onset of midepigastric abdominal pain, gene ralized to the entire abdomen. Pain is characterized as sharp, burning in nature, constant and gener alized to her abdomen. Her pain is worsened with ingestion of food as well as increased movement, be tter with administration of pain medications while she has been here in the hospital. She currently denies any nausea, vomiting, fevers, chills, shortness of breath, odynophagia, dysphagia, or GI bleed ing. Given the above symptoms, she was prompted to seek medical attention and she was admitted throu gh the ER last night on 03/27/2017. Upon admission to the ER, she was noted to have a significantly increased lipase as well as LFTs that were concerning for gallstone pancreatitis. General Surgery wa s consulted at that time and given the concern for possible choledocholithiasis prompted Gastroentero logy consult. She was subsequently transferred to the floor after receiving meropenem, 2 liters of n ormal saline, morphine and Zofran in the ER. REVIEW OF SYSTEMS: A 10 category review of systems was negative except for the pertinent positives a s listed in the HPI. PAST MEDICAL HISTORY: Invasive ductal carcinoma of the left breast. PAST SURGICAL HISTORY: Right MediPort placement on 02/22/2017. FAMILY HISTORY: Denies any history of GI malignancy. OUTPATIENT MEDICATION: Neoadjuvant chemotherapy (Taxol) weekly x12 total weeks, managed by Dr. Uzma lindsey. ALLERGIES: No known drug allergies. SOCIAL HISTORY: Denies any tobacco, alcohol or illicit drug use. PHYSICAL EXAMINATION: VITAL SIGNS: Temperature of 97.6, pulse 140, blood pressure 120/85, respiratory rate 25, satting 100 % on room air. GENERAL: The patient lying in bed, in mild distress. Alert and oriented x4. Welsh speaking only. NECK: Supple. No JVD noted. CARDIOVASCULAR: Tachycardic rate but normal rhythm. No discernible murmurs, gallops or rubs. RESPIRATORY: Clear to auscultation bilaterally with no discernible wheezes or rales. ABDOMEN: Hyperactive bowel sounds. Soft, mild distention, tenderness to palpation in all abdominal quadrants, especially the midepigastric and periumbilical regions. EXTREMITIES: No cyanosis, clubbing, or edema. LABORATORY DATA: CBC with a white blood cell count of 8.6, hemoglobin 16.2, hematocrit 48, platelets 194. Chemistry with a sodium of 140, potassium 3.5, chloride 110, CO2 21, BUN 13, creatinine 0.64, glucose 141, AST 135, ALT 343, alkaline phosphatase 233, total bilirubin 1.2, lipase 2376. IMAGING DATA: Abdominal MRI obtained on 03/28/2017 showed numerous calculi within the gallbladder an d the common bile duct with pericholecystic inflammation and fluid. There are inflammatory regions w ithin the pancreatic region and presence of fluid there as well. The common bile duct measured appro ximately 1 cm in diameter with mild intrahepatic ductal dilatation consistent with acute choledocholi thiasis. ASSESSMENT AND PLAN: The patient is a 31-year-old female with past medical history of invasive ducta l carcinoma of the left breast, presenting with acute onset of abdominal pain consistent with acute c holedocholithiasis or gallstone pancreatitis. Gallstone pancreatitis. The patient presenting with acute onset of midepigastric abdominal pain that generalized to the entire abdomen that was worsened with eating and movement. Upon review of the la bs on admission, she was noted to be an obstructive type pattern with an elevated lipase consistent w ith gallstone pancreatitis. However, over the next 24 hours, she was noted to have decrease in her L FTs and a total bilirubin that was concerning for possible passed stone. Subsequent MRI of the abdom en was performed on 03/28/2017. They did in fact confirm the presence of stones within the common bi le duct consistent with choledocholithiasis. At this time, the most likely reason for her pancreatit is is gallstone or choledocholithiasis and with her recent worsening clinical status with increased r espiratory rate and tachycardia later in the day today, an urgent ERCP is indicated. RECOMMENDATIONS: 1. Plan for ERCP later on tonight with stone extraction. 2. We would continue the patient on broad-spectrum antibiotics including Zosyn. 3. We would continue with IV fluid administration approximately 250 mL an hour given acute pancreati tis. 4. Pain control per primary team. 5. We would keep the patient n.p.o. for now given likelihood of procedure and acute pancreatitis.
[2017-03-28] MEDS ORDERED: Phenylephrine HCL 10 MG/ML VIAL ONE (20:02)
--- NOTE | 2017-03-28 21:42 | RAD ---
ERCP: Date: 03-28-17 History: Choledocholithiasis, possible gallstones pancreatitis. FINDINGS: Four images from an ERCP are provided. Images demonstrate contrast media within a prominent CBD. Nume clair filling defects within the common bile duct suggests numerous stones. Final image demonstrates c ontrast media within the duodenum. There is intrahepatic biliary prominence. There are no images prov ided with opacification of the common bile duct and no filling defects. Image 4 of 4 demonstrates contrast media within a gallbladder which appears filled with stones as wel l. IMPRESSION: Numerous filling defects within the common bile duct suggests choledocholithiasis. POS: PATRICE
--- NOTE | 2017-03-28 23:06 | OP ---
DATE OF PROCEDURE: 03/28/2017 PROCEDURE: Endoscopic retrograde cholangiopancreatography with sphincterotomy and balloon extraction. INDICATION FOR PROCEDURE: Gallstone pancreatitis, choledocholithiasis. DESCRIPTION OF PROCEDURE: After the risks and benefits of the procedure were explained to the patient including risks of bleeding, infection, perforation, reactions to anesthesia, pain and/or pancreatitis, informed consent was obtained. The patient was then taken to the endoscopy suite where general anesthesia was administered with intubation via anesthesia support. The standard duodenoscope was then introduced into the mouth and advanced into the esophagus, stomach and proximal small intestine with the findings listed below. The patient tolerated the procedure well with no immediate perioperative complications. FINDINGS: Upper gastrointestinal tract: Limited views of the esophagus and stomach were obtained with copious amount of bile seen within the stomach, but no evidence of increased mucosal erythema, erosions, ulcerations, or mass lesions. A duodenoscope was then advanced into the proximal small intestine with normal mucosa seen in both the duodenal bulb and second portion of the duodenum. The ampulla was then located within the second portion of the duodenum and using a sphincterotome, the ampulla was cannulated with a guidewire then passed through the sphincterotome to maintain position within the duct itself. Using the sphincterotome, contrast was then injected into the common bile duct with three filling defects noted within the distal common bile duct measuring approximately 5-6 mm in size. Then, using the sphincterotome, a generous sphincterotomy was performed with minimal bleeding. Then, using a transfer technique, the guidewire was placed further within the common bile duct with the sphincterotome retracted out through the biopsy port of the scope , but maintaining adequate position with the guidewire. Then, over the guidewire, a 9-12 mm balloon was passed successfully into the small intestine. Using cholangiogram, the filling defects were then located. The balloon was then inflated to 1 cm with multiple balloon passes to extract the existing stones within the common bile duct. Three solid yellow in coloration stones were extracted from the common bile duct successfully with further balloon sweeps negative for further debris. The procedure was then terminated with all equipment removed and the patient transferred to the postanesthesia care unit in satisfactory condition. IMPRESSION: Choledocholithiasis, status post sphincterotomy and successful balloon extraction of three 5-6 mm yellow gallstones. RECOMMENDATIONS: 1. Would follow with primary inpatient team. 2. Would continue to monitor clinically for signs of worsening pancreatitis as well as drawing serial LFTs. Further serial lab draws of the lipase are not indicative or prognostic for worsening pancreatitis and I would recommend refraining from doing so. 3. Would continue IV fluid administration given her pancreatitis, but patient will need monitoring of fluid status to avoid volume overload. 4. Pain control per primary team. 5. We would continue n.p.o. status for now until tomorrow and base nutrition on the clinical status at that point in time. 6. Patient will need cholecystectomy during this hospitalization, but will defer timing of that procedure to the General Surgery Service. NAVIN
[2017-03-29] MEDS: Sodium Chloride 0.9% 1,000 ML IV SCH ×6 (01:50→17:30)
[2017-03-29] MEDS: Piperacillin/Tazobactam 3.375 GM in Sodium Chloride 0.9% 100 ML IVPB SCH ×4 (03:43→22:09)
[2017-03-29 06:49] LABS: ALT (SGPT) 125 U/L (8-55); AST (SGOT) 33 U/L (5-34); Albumin 2.5 g/dL (3.5-5.0); Alkaline Phosphatase 149 U/L (40-150); Anion Gap 8 mmol/L (10-20); BUN (Urea Nitrogen) 12 mg/dL (7.0-18.7); Bilirubin, Total 0.7 mg/dL (0.2-1.2); Calc. Creatinine Clearance 196 mL/min (70-130); Calcium 7.4 mg/dL (7.8-10.44); Carbon Dioxide 21 mmol/L (22-29); Chloride 115 mmol/L (98-107); Estimated GFR-MDRD Greater than 90; Globulin 2.3 g/dL (2.4-3.5); Glucose 98 mg/dL (70-105); Potassium 3.9 mmol/L (3.5-5.1); Protein, Total 4.8 g/dL (6.0-8.3); Sodium 140 mmol/L (136-145)
--- NOTE | 2017-03-29 06:50 | PDOC.FM ---
Addendum entered and electronically signed by Neela Tovar MD 03/29/17 09:00: Spoke with Dr. Marquez. Discussed keeping NS @ maintenance with fluid boluses prn and not increasing the rate above maintenence. Discussed that increasing the rate will result in 3rd spacing of fluids. If HDS later today, we can transfer her out of the unit. She may end up being discharged without requiring cholecystectomy here during this hospitalization, with follow-up with general surgery. Anticipate cholecystectomy or Tuesday. Original Note: - Subjective Subjective: Pt s/p ERCP last night with removal of 3 stones. Pt did well overnight. HR downtrended to low 100s. Endorsing some lower abdominal pain in the right, mid, and left lower quadrant. She hasn't stooled since being here. - Objective MAR Reviewed: Yes Vital Signs & Weight: Vital Signs (12 hours) Temp Pulse Resp Pulse Ox 03/29/17 04:00 98.4 F 03/29/17 00:00 97.8 F 03/28/17 22:55 98.0 F 115 H 28 H 99 03/28/17 22:00 98.0 F Weight Weight 83.8 kg Most Recent Monitor Data Heart Rate from ECG 102 NIBP 101/72 NIBP BP-Mean 83 Respiration from ECG 28 SpO2 97 I&O: 03/27/17 03/28/17 03/29/17 06:59 06:59 06:59 Intake Total 1075 6296 Output Total 720 Balance 1075 5576 Result Diagrams: 03/29/17 03:55 03/29/17 03:55 <Neela Tovar - Last Filed: 03/29/17 08:43> - Objective Vital Signs & Weight: Vital Signs (12 hours) Temp Pulse Resp Pulse Ox 03/29/17 16:00 98.2 F 03/29/17 12:00 97.5 F L 03/29/17 08:00 97.6 F 105 H 28 H 99 Weight Weight 83.8 kg Most Recent Monitor Data Heart Rate from ECG 115 NIBP 138/84 NIBP BP-Mean 95 Respiration from ECG 30 SpO2 96 I&O: 03/28/17 03/29/17 03/30/17 06:59 06:59 06:59 Intake Total 1075 6296 1280 Output Total 720 460 Balance 1075 5576 820 Result Diagrams: 03/29/17 03:55 03/29/17 03:55 <Elis Cook - Last Filed: 03/29/17 16:55> Phys Exam - Physical Examination Constitutional: NAD HEENT: PERRLA, moist MMs Respiratory: no wheezing, no rales, clear to auscultation bilateral Cardiovascular: no significant murmur tachycardic Gastrointestinal: soft, non-tender hypoactive bowel sounds Neurological: non-focal Psychiatric: normal affect, A&O x 3 Skin: no rash <Neela Tovar - Last Filed: 03/29/17 08:43> Dx/Plan (1) Sepsis Code(s): A41.9 - SEPSIS, UNSPECIFIED ORGANISM Status: Acute (2) Acute gallstone pancreatitis Code(s): K85.10 - BILIARY ACUTE PANCREATITIS WITHOUT NECROSIS OR INFECTION Status: Acute (3) Cholecystitis Code(s): K81.9 - CHOLECYSTITIS, UNSPECIFIED Status: Acute (4) Choledocholithiasis Code(s): K80.50 - CALCULUS OF BILE DUCT W/O CHOLANGITIS OR CHOLECYST W/O OBST Status: Acute (5) Cholelithiases Code(s): K80.20 - CALCULUS OF GALLBLADDER W/O CHOLECYSTITIS W/O OBSTRUCTION Status: Acute (6) Invasive ductal carcinoma of breast Code(s): C50.919 - MALIGNANT NEOPLASM OF UNSP SITE OF UNSPECIFIED FEMALE BREAST Status: Acute - Plan Plan: 31 yo f with a pmhx of invasive ductal carcinoma and recent delivery via csection, presents with n/v, admitted for gallstone pancreatitis. Sepsis 2/2 Gallstone Pancreatitis and cholecystitis-D/t hemodynamic instability yesterday, pt was transferred to the ICU. She had an ERCP last night with removal of 3 stones. Fluids were increased to 250ml/hr; She is NPO currently in anticipation of cholecystectomy today. Choledocolithiasis- now s/p ERCP with removal of three stones (5-6mm each). Cholelithiasis-Will follow with gen surg recommendations on when to do her cholecystectomy. Invasive ductacl carcinoma-We consulted Dr. Myers to make him aware that his patient is here. Constipation-We will provide a bowel regimen of colace and senna. <Neela Tovar - Last Filed: 03/29/17 08:43> Attending Addendum - Attending Addendum I personally evaluated the patient and discussed the management with Dr. Tovar. I agree with the History, Examination, Assessment and Plan documented above with any addition or exceptions noted below. Patient is mildly tachycardic but improved from yesterday. Pain improved after ERCP. Monitoring urine output. Will bolus fluids as needed to keep urine output adequate. Continue IV Zosyn. Likely will have lap edy later this week. <Elis Cook - Last Filed: 03/29/17 16:55>
[2017-03-29 07:05] LABS: Band 55 % (5-11); Dohle Bodies SLIGHT; Lymphocytes 2 % (21-51); MDiff Complete? YES; Mean Corpuscular HGB CONC 32.1 g/dL (32.0-36.0); Mean Corpuscular Hemoglobin 29.2 pg (27.0-31.0); Mean Corpuscular Volume 91.1 fl (81.0-99.0); Mean Platelet Volume 9.2 fL (7.4-10.4); Monocytes 1 % (0-10); Neutrophil 42 % (42-75); PLT Morphology Comment Appears Adequate; Platelet Count 168 thou/uL (130-400); RBC Distribution Width 13.2 % (11.5-14.5); RBC Morphology Normal; Red Blood Cell (RBC) Count 4.44 mill/uL (4.20-5.40); White Blood Cell (WBC) Count 11.2 thou/uL (4.8-10.8)
--- NOTE | 2017-03-29 08:22 | PRG ---
DATE OF SERVICE: 03/29/2017 The patient underwent ERCP last night, stones were extracted. She feels much better this morning. PHYSICAL EXAMINATION: VITAL SIGNS: Her heart rate is in the low 100s, blood pressure 122/87, O2 sat 99%, respiratory rate in the high 20s. GENERAL: She does not appear to be in any distress. HEENT: Unremarkable. NECK: No JVD. LUNGS: Clear without wheezing. CARDIAC: S1, S2, slightly tachycardic. ABDOMEN: Nontender to deep palpation. EXTREMITIES: No clubbing, cyanosis, trace edema. LABORATORY DATA: Sodium 140, potassium 3.9, chloride 115, CO2 21, BUN 12, creatinine 0.5, glucose 98 , albumin 2.5. White blood cell count 11.2, hematocrit 40, platelet count 168. Lipase is pending. ASSESSMENT: 1. Gallstone pancreatitis - clinical course improving. 2. Status post ERCP. 3. History of invasive ductal carcinoma of the breast. PLAN: 1. Cholecystectomy when okay with General Surgery. 2. Continue generalized supportive care.
[2017-03-29] MEDS ORDERED: Sodium Chloride 0.9% 1,000 ML IV SCH (09:00)
--- NOTE | 2017-03-29 09:02 | PDOC.GSPN ---
Surgery Progress Note: Subj - Subjective Patient reports: no new complaints Narrative: More stable this am, tachycardia improved. UOP was better but trending down. Her pain is improved Surgery Progress Note: Obj - Vital signs Vital signs: Vital Signs - Most Recent Temp Pulse Resp BP Pulse Ox 98.4 F 115 H 28 H 118/69 99 03/29/17 04:00 03/28/17 22:55 03/28/17 22:55 03/28/17 15:59 03/28/17 22:55 - Physical Exam General: no distress Cardiovascular: regular rate and rhythm Respiratory: clear to auscultation Abdomen: soft, distended, tender (epigastric) Surgery Progress Note: Results - Labs Result Diagrams: 03/29/17 03:55 03/29/17 03:55 Lab results: Laboratory Results - last 24 hr 03/29/17 03/29/17 03:55 03:55 WBC 11.2 H RBC 4.44 Hgb 13.0 Hct 40.4 MCV 91.1 MCH 29.2 MCHC 32.1 RDW 13.2 Plt Count 168 MPV 9.2 Neutrophils % (Manual) 42 Band Neuts % (Manual) 55 H Lymphocytes % (Manual) 2 L Monocytes % (Manual) 1 Dohle Bodies SLIGHT Plt Morphology Comment Appears Adequate RBC Morph Comment Normal Sodium 140 Potassium 3.9 Chloride 115 H Carbon Dioxide 21 L Anion Gap 8 L BUN 12 Creatinine 0.55 L Estimated GFR (MDRD) Greater than 90 Glucose 98 Calcium 7.4 L Total Bilirubin 0.7 AST 33 ALT 125 H Alkaline Phosphatase 149 Serum Total Protein 4.8 L Albumin 2.5 L Globulin 2.3 L Albumin/Globulin Ratio 1.1 L Surgery Progress Note: A/P - Problem (1) Gallstone pancreatitis Current Visit: Yes Code(s): K85.10 - BILIARY ACUTE PANCREATITIS WITHOUT NECROSIS OR INFECTION Status: Acute Assessment and Plan: Appreciate Pulmonary and GI assistance. Looks better this am (2) Hypovolemic shock Current Visit: Yes Code(s): R57.1 - HYPOVOLEMIC SHOCK Status: Acute Assessment and Plan: Improved. Continue to bolus IVF for low uop or tachycardia.
[2017-03-29] MEDS: Enoxaparin Sodium 40 MG/0.4 ML SYRINGE SC SCH (09:45)
[2017-03-29] MEDS: Pantoprazole 40 MG VIAL IVP SCH (09:58)
--- NOTE | 2017-03-29 16:42 | PRG ---
DATE OF SERVICE: 03/29/2017 REASON FOR CONSULTATION: Choledocholithiasis and acute pancreatitis. SUBJECTIVE: Last night, the patient underwent ERCP with successful extraction of three 5-6 mm gallst ones. After the procedure, she states that her pain has significantly decreased now with a severity of approximately 3/10; however, she does endorse increased coughing and phlegm production since the p rocedure to the point of observed almost posttussive emesis at bedside. She also endorses subjective fevers, but no chills. Currently, denies any nausea, vomiting, odynophagia, dysphagia, diarrhea, or constipation. OBJECTIVE: VITAL SIGNS: Temperature 97.5, heart rate 110, blood pressure 131/76, respiratory rate 33, satting 9 7% on room air. GENERAL: The patient is lying in bed in mild distress. Alert and oriented x4. CARDIOVASCULAR: Tachycardic rate with normal rhythm noted. No discernible murmurs, gallops, or rubs . RESPIRATORY: Clear to auscultation in the upper lung marie; however, fine crackles possibly noted w ithin the right lower lobe. ABDOMINAL: Hyperactive bowel sounds, soft, nondistended, mild tenderness to palpation in the midepig astric and periumbilical regions. EXTREMITIES: No cyanosis, clubbing, or edema. LABORATORY DATA: CBC with a white blood cell count of 11.2, hemoglobin 13, hematocrit 40.4, platelet s 168. Chemistry with a sodium of 140, potassium 3.9, chloride 115, CO2 of 21, BUN 12, creatinine 0. 55, glucose 98, AST 33, ALT 125, alkaline phosphatase 149, total bilirubin 0.7. IMAGING DATA: Chest CT obtained on 03/28/2017 was negative for acute pulmonary artery thromboembolis m. ERCP obtained on 03/28/2017 showed the successful extraction of 3 filling defects consistent with three 5-6 mm gallstones within the common bile duct. ASSESSMENT AND PLAN: The patient is a 31-year-old female with past medical history of invasive ducta l carcinoma of the left breast and recent childbirth presenting with acute onset of abdominal pain co nsistent with choledocholithiasis and gallstone pancreatitis. Gallstone pancreatitis. The patient initially presented with acute onset of mid epigastric abdominal pain that generalized the entire abdomen with a LFT pattern consistent with obstruction concerning f or choledocholithiasis. She was also noted to have a significantly elevated lipase at approximately 2300 consistent with pancreatitis. She did initially show a decrease in her LFTs on admission, but w ith increased respiratory rate and tachycardia observed on 03/28/2017, she was taken for urgent ERCP with successful sphincterotomy and extraction of three 5-6 mm gallstones. Since that time, her abdom inal pain has improved significantly with a severity approximately 3/10 at the current time. However , she does continue to have tachypnea and increased cough in the post-procedure setting concerning fo r possible aspiration with a prolonged procedure (ERCP). She is currently receiving IV fluid at appr oximately 125 mL per hour with a urinary output of approximately 45-50 mL per hour, consistent with a dequate fluid hydration per guidelines (needs to be 0.5:1 mL per K per hour). RECOMMENDATIONS: 1. We would continue IV fluid to maintain urine output of approximately 0.5-1 mL per kg per hour. 2. We would continue Zosyn for gallstone pancreatitis, acute choledocholithiasis, and possible edy cystitis. 3. We would continue to trend LFTs daily as well as obtain serum calcium and magnesium with increase d fluid administration and acute pancreatitis. 4. We would consider advancing diet to possible clear liquid diet within the next 24 hours. 5. Patient will need a cholecystectomy during this admission, but the timing of which I will defer t o the General Surgery Service. 6. We will obtain urgent chest x-ray to be performed at bedside for possible aspiration in the post- ERCP setting. We will continue to follow. Please call with any questions.
--- NOTE | 2017-03-29 16:47 | RAD ---
SINGLE VIEW OF THE CHEST: Comparison: 02-21-17 History: Possible aspiration. FINDINGS: Single view of the chest shows a normal sized cardiomediastinal silhouette. The Mediport is unchanged in position. Low lung volumes are present. There is no evidence of consolidation, mass or pleural ef fusion. IMPRESSION: No evidence of acute cardiopulmonary disease. POS: [facility]
[2017-03-29] MEDS ORDERED: Furosemide 20 MG/2 ML VIAL SLOW IVP SCH (18:00)
--- NOTE | 2017-03-29 20:17 | CON ---
DATE OF CONSULTATION: 03/29/2017 REASON FOR CONSULTATION: Breast cancer. HISTORY OF PRESENT ILLNESS: Ms. Mcgowan is a pleasant 31-year-old female who was recently diagnosed with stage IIIA, ER positive, HER2 positive, invasive ductal carcinoma of the left breast. Her diag nosis came during . She delivered a healthy baby on 02/19/2017. She received her first dos e of chemotherapy consisting of Adriamycin and Cytoxan on 03/22/2017. She presented to the emergency room two days ago with acute onset of right upper quadrant abdominal pain. Her LFTs were elevated a nd she was diagnosed with gallstone pancreatitis. Dr. Davies and Dr. Page have seen the patient. She had a balloon retrieval of some gallstones by Dr. Page. She was hypovolemic on admission and hazel s been receiving aggressive fluid resuscitation. She complains of abdominal pain. On diagnosis of b reast cancer, she had a large 6-7 cm upper outer quadrant mass. PAST MEDICAL HISTORY: Stage IIIA invasive ductal carcinoma of the left breast. PAST SURGICAL HISTORY: MediPort placement, ultrasound-guided biopsies of the left breast. ALLERGIES: No known drug allergies. HOME MEDICATIONS: Zofran p.r.n. FAMILY HISTORY: No family history of breast and cervical ovarian or colon cancer. Her father did hazel ve gastric cancer and is . SOCIAL HISTORY: She is , has 1 child, lives with her spouse. No alcohol, tobacco or illicit drug use. REVIEW OF SYSTEMS: Ten point review of systems is negative except for noted in the HPI. PHYSICAL EXAMINATION: VITAL SIGNS: Temperature is 98.2, pulse is 115, respiratory rate is 30, BP is 138/84. She is 96% on room air. GENERAL: Well-developed, well-nourished female in no acute distress. HEENT: Normocephalic, atraumatic. Pupils are equal and reactive to light. NECK: Supple. CARDIOVASCULAR: Regular rate and rhythm. LUNGS: Clear. ABDOMEN: Soft, mildly tender in the right upper quadrant. Bowel sounds are positive. EXTREMITIES: No clubbing, cyanosis or edema. SKIN: No rash. BREASTS: She has a 5-6 cm left upper outer quadrant mass. NEUROLOGIC: Nonfocal. PSYCHIATRIC: The patient is alert and oriented and appropriate. PERTINENT LABORATORY AND X-RAYS: Current WBCs 11.2, hemoglobin 13.0, hematocrit 40.4, platelet count 168,000. She has got 42% neutrophils, 55% bands, 2% lymphocytes. Sodium is 140, potassium 3.5, chl oride 110, CO2 is 21, BUN is 13, creatinine 0.64, total bilirubin is 1.2, AST is 135, ALT is 343, alk meaghan phosphatase 233. C-reactive protein is 17.41. Serum total protein is 3.0, albumin 3.3, lipase 2376. Urine is negative. It has positive nitrites and small leukocyte esterase. IMPRESSION: 1. Acute pancreatitis. 2. Cholelithiasis. 3. Stage IIIA breast cancer status post cycle 1 of Adriamycin and Cytoxan. DISCUSSION: The patient received AC every 3 weeks. She is currently 7 days out of cycle 1. I suspe ct that her WBC, hemoglobin and platelet count will begin to drop. Her sheldon should be around 10-12. We will monitor her CBC closely and provide Neupogen support as needed. Her next treatment is sche duled for 04/05/2017 that will be postponed until she has recovered from this acute illness. Thank you for the consult. We will monitor her during her hospital course.
[2017-03-29] MEDS: Morphine 10 MG/ML CARPUJECT SLOW IVP PRN (22:01)
[2017-03-30] MEDS: Sodium Chloride 0.9% 1,000 ML IV SCH ×2 (01:25→08:29)
[2017-03-30] MEDS ORDERED: Sodium Chloride 0.9% 500 ML IV SCH (02:15)
[2017-03-30] MEDS: Morphine 10 MG/ML CARPUJECT SLOW IVP PRN ×2 (03:12→05:36)
[2017-03-30] MEDS: Piperacillin/Tazobactam 3.375 GM in Sodium Chloride 0.9% 100 ML IVPB SCH ×4 (03:17→21:11)
[2017-03-30 05:29] LABS: ALT (SGPT) 84 U/L (8-55); AST (SGOT) 27 U/L (5-34); Albumin 2.6 g/dL (3.5-5.0); Alkaline Phosphatase 88 U/L (40-150); Anion Gap 9 mmol/L (10-20); BUN (Urea Nitrogen) 8 mg/dL (7.0-18.7); Bilirubin, Total 0.8 mg/dL (0.2-1.2); Calc. Creatinine Clearance 200 mL/min (70-130); Calcium 7.9 mg/dL (7.8-10.44); Carbon Dioxide 21 mmol/L (22-29); Chloride 114 mmol/L (98-107); Estimated GFR-MDRD Greater than 90; Globulin 2.4 g/dL (2.4-3.5); Glucose 87 mg/dL (70-105); Lipase 105 U/L (8-78); Potassium 3.2 mmol/L (3.5-5.1); Sodium 141 mmol/L (136-145)
[2017-03-30 05:52] LABS: Band 27 % (5-11); Hemoglobin 11.3 g/dL (12.0-16.0); Lymphocytes 14 % (21-51); MDiff Complete? YES; Mean Corpuscular HGB CONC 33.8 g/dL (32.0-36.0); Mean Corpuscular Hemoglobin 30.1 pg (27.0-31.0); Mean Platelet Volume 8.6 fL (7.4-10.4); Monocytes 2 % (0-10); Neutrophil 57 % (42-75); Platelet Count 153 thou/uL (130-400); Red Blood Cell (RBC) Count 3.76 mill/uL (4.20-5.40); White Blood Cell (WBC) Count 7.7 thou/uL (4.8-10.8)
--- NOTE | 2017-03-30 08:22 | PRG ---
DATE OF SERVICE: 03/30/2017 SUBJECTIVE: The patient is doing okay today, had no acute complaints. OBJECTIVE: VITAL SIGNS: Temperature is 98.3, pulse 94, blood pressure 132/75, O2 sat 94%. Total intake for 24 hours is 5358, output 2770, all are urine output. HEENT: Unremarkable. NECK: No JVD. LUNGS: Diminished breath sounds in the bases. CARDIAC: S1 and S2 regular. ABDOMEN: Distended. EXTREMITIES: Edematous. LABORATORY DATA: Sodium 141, potassium 3.2, chloride 114, CO2 21, BUN 8, creatinine 0.5, glucose 87. Lipase is down to 105, total bilirubin 0.8, white blood cell count 7.7, hematocrit 33.5, platelet c ount 153, 27% bands, 7% neutrophils. ASSESSMENT: 1. Gallstone pancreatitis. 2. Cholecystitis. 3. Improved lipase and liver function tests. PLAN: 1. She has become grossly fluid overloaded and I think it might be okay to go ahead and cut back on her IV fluids at this time. Up in a chair as tolerated. Hopefully would be a candidate for cholecys tectomy in the near future. 2. Continue antibiotics.
[2017-03-30] MEDS: Pantoprazole 40 MG VIAL IVP SCH (08:28)
[2017-03-30] MEDS: Enoxaparin Sodium 40 MG/0.4 ML SYRINGE SC SCH (08:28)
[2017-03-30] MEDS ORDERED: Furosemide 20 MG TAB PO SCH (08:50)
[2017-03-30] MEDS ORDERED: Ondansetron ODT 4 MG TAB PO PRN (08:51)
--- NOTE | 2017-03-30 08:53 | PDOC.FM ---
- Subjective Subjective: Complaining of severe abdominal pain this am. Tachycardic and diaphoretic. Complaining of diffusely swollen arms and legs. - Objective MAR Reviewed: Yes Vital Signs & Weight: Vital Signs (12 hours) Temp Pulse Resp Pulse Ox 03/30/17 07:40 98.3 F 93 26 H 92 L 03/30/17 04:00 98.3 F 03/30/17 00:00 98.3 F Weight Weight 83.8 kg Most Recent Monitor Data Heart Rate from ECG 94 NIBP 132/75 NIBP BP-Mean 88 Respiration from ECG 22 SpO2 94 I&O: 03/29/17 03/30/17 03/31/17 06:59 06:59 06:59 Intake Total 6296 5358 Output Total 720 2770 Balance 5576 2588 Result Diagrams: 03/30/17 04:31 03/30/17 04:31 <Neela Tovar - Last Filed: 03/30/17 08:55> - Objective Vital Signs & Weight: Vital Signs (12 hours) Temp Pulse Resp Pulse Ox 03/30/17 12:00 98.1 F 03/30/17 08:00 98.5 F 03/30/17 07:40 98.3 F 93 26 H 92 L 03/30/17 04:00 98.3 F Weight Weight 83.8 kg Most Recent Monitor Data Heart Rate from ECG 99 NIBP 117/62 NIBP BP-Mean 86 Respiration from ECG 39 SpO2 96 I&O: 03/29/17 03/30/17 03/31/17 06:59 06:59 06:59 Intake Total 6296 5358 697 Output Total 720 2770 480 Balance 5576 2588 217 Result Diagrams: 03/30/17 04:31 03/30/17 04:31 <Elis Cook - Last Filed: 03/30/17 15:45> Phys Exam - Physical Examination shallow breathing and in pain HEENT: PERRLA, moist MMs Respiratory: no wheezing decreased bilateral breath sounds Cardiovascular: no significant murmur tachycardic Gastrointestinal: soft diffusely swollen abdomen with ascited; hypoactive bowel sounds Musculoskeletal: edema present (bilateral upper and lower extremities; non pitting) Neurological: non-focal, normal sensation Psychiatric: normal affect, A&O x 3 Skin: no rash <Neela Tovar - Last Filed: 03/30/17 08:55> Dx/Plan (1) Sepsis Code(s): A41.9 - SEPSIS, UNSPECIFIED ORGANISM Status: Acute (2) Acute gallstone pancreatitis Code(s): K85.10 - BILIARY ACUTE PANCREATITIS WITHOUT NECROSIS OR INFECTION Status: Acute (3) Cholecystitis Code(s): K81.9 - CHOLECYSTITIS, UNSPECIFIED Status: Acute (4) Choledocholithiasis Code(s): K80.50 - CALCULUS OF BILE DUCT W/O CHOLANGITIS OR CHOLECYST W/O OBST Status: Acute (5) Cholelithiases Code(s): K80.20 - CALCULUS OF GALLBLADDER W/O CHOLECYSTITIS W/O OBSTRUCTION Status: Acute (6) Invasive ductal carcinoma of breast Code(s): C50.919 - MALIGNANT NEOPLASM OF UNSP SITE OF UNSPECIFIED FEMALE BREAST Status: Acute (7) Hyperchloremia Code(s): E87.8 - OTH DISORDERS OF ELECTROLYTE AND FLUID BALANCE, NEC Status: Acute - Plan Plan: 31 yo f with a pmhx of invasive ductal carcinoma on chemo and recent delivery via csection ~1 mo ago, presents with n/v, admitted for gallstone pancreatitis and cholecystitis. 1.)Sepsis 2/2 Gallstone Pancreatitis and cholecystitis-D/t hemodynamic instability yesterday, pt remained in the ICU. She is volume overloaded today. We will provide 20mg PO Lasix. She got one 500ml bolus of fluids overnight due to inadequate UOP. S/p ERCP with removal of 3 stones in the common bile duct. It appears that the cystic duct is also obstructed. Will continue to follow gen surg and GI recs. Continue pain regimen of morphine 4mg q2h prn and zosyn for empiric treatment. 2.)Gallstone Pancreatitis-s/p ERCP with removal of 3 stones in the common bile duct. Will continue to follow GI and Gen surg recs. 3.)Cholecystitis-obstructed cystic duct as well. See above. 4.)Choledocolithiasis- now s/p ERCP with removal of three stones (5-6mm each) from the common bile duct. However based on the ERCP images, it appears that the cystic duct is also obstructed. 5.)Cholelithiasis-Will follow with gen surg recommendations on when to do her cholecystectomy. 6.) hyperchloremia-we will switch her fluids to 1/2 normal saline @ 100 ml/hr 7.)Invasive ductal carcinoma on chemo-Dr. Myers is following. 8.)Constipation-We will provide a bowel regimen of colace and senna. <Neela Tovar - Last Filed: 03/30/17 08:55> Attending Addendum - Attending Addendum Date/Time: 03/30/17 9224 I personally evaluated the patient and discussed the management with Dr. Tovar. I agree with the History, Examination, Assessment and Plan documented above with any addition or exceptions noted below. Tachycardia is improved and urine output is stable. Will decrease IV fluids. Patient with increased pain. If she remains stable, may move to the floor this afternoon. Surgical management per Dr. Davies. Continue pain control. <Elis Cook - Last Filed: 03/30/17 15:45>
[2017-03-30] MEDS ORDERED: Potassium Chloride 20 MEQ TAB PO SCH (09:30)
[2017-03-30 09:56] LABS: Magnesium 1.9 mg/dL (1.6-2.6)
[2017-03-30] MEDS: Sodium Chloride 0.45% 1,000 ML IV SCH ×2 (09:56→21:12)
[2017-03-30 10:08] LABS: Phosphorus 1.4 mg/dL (2.3-4.7)
--- NOTE | 2017-03-30 14:14 | PDOC.GSPN ---
Surgery Progress Note: Subj - Subjective Narrative: Still having diffuse pain. UOP much improved. Pulse down Surgery Progress Note: Obj - Vital signs Vital signs: Vital Signs - Most Recent Temp Pulse Resp BP Pulse Ox 98.5 F 93 26 H 118/69 92 L 03/30/17 08:00 03/30/17 07:40 03/30/17 07:40 03/28/17 15:59 03/30/17 07:40 - Physical Exam General: no distress Cardiovascular: regular rate and rhythm Respiratory: clear to auscultation Abdomen: soft, distended, tender (diffusely) Surgery Progress Note: Results - Labs Result Diagrams: 03/30/17 04:31 03/30/17 04:31 Lab results: Laboratory Results - last 24 hr 03/30/17 03/30/17 03/30/17 04:31 04:31 04:31 WBC 7.7 RBC 3.76 L Hgb 11.3 L Hct 33.5 L MCV 89.0 MCH 30.1 MCHC 33.8 RDW 13.0 Plt Count 153 MPV 8.6 Neutrophils % (Manual) 57 Band Neuts % (Manual) 27 H Lymphocytes % (Manual) 14 L Monocytes % (Manual) 2 Sodium 141 Potassium 3.2 L Chloride 114 H Carbon Dioxide 21 L Anion Gap 9 L BUN 8 Creatinine 0.54 L Estimated GFR (MDRD) Greater than 90 Glucose 87 Calcium 7.9 Phosphorus 1.4 L Magnesium 1.9 Total Bilirubin 0.8 AST 27 ALT 84 H Alkaline Phosphatase 88 Serum Total Protein 5.0 L Albumin 2.6 L Globulin 2.4 Albumin/Globulin Ratio 1.1 L Lipase 105 H Surgery Progress Note: A/P - Problem (1) Gallstone pancreatitis Current Visit: Yes Code(s): K85.10 - BILIARY ACUTE PANCREATITIS WITHOUT NECROSIS OR INFECTION Status: Acute Assessment and Plan: Severe. Improved. Labs trending down. Will allow ice chips, sips water. I suspect she will need three to four more days before the abdominal pain and bloating improve. If pain not improving in next few days plan start tpn. (2) Hypovolemic shock Current Visit: Yes Code(s): R57.1 - HYPOVOLEMIC SHOCK Status: Acute
--- NOTE | 2017-03-30 17:53 | PRG ---
DATE OF SERVICE: 03/30/2017 REASON FOR CONSULTATION: Choledocholithiasis and gallstone pancreatitis. SUBJECTIVE: The patient states that she continues to have abdominal pain with the severity of approximately 5/10, located within the mid epigastric region, but also complaining of increased back pain, so she has been here in the hospital. She also complains of increased swelling within her abdomen, lower extremities and upper extremities with the administration of IV fluids. She continues to have increased coughing and phlegm production, but denies any fevers, chills or purulent sputum. Currently, denies any nausea, vomiting, fevers, chills, odynophagia, dysphagia or constipation. OBJECTIVE: VITAL SIGNS: Temperature 98.4, heart rate 98, blood pressure 128/78, respiratory rate 33, satting 97% on room air. GENERAL: The patient is lying in bed, in mild distress. He is alert and oriented x4. [place] speaking only. CARDIOVASCULAR: Regular rate and rhythm with no discernible murmurs, gallops or rubs. RESPIRATORY: Clear to auscultation bilaterally with no discernible wheezes or rales. ABDOMEN: Normoactive bowel sounds, soft, mildly distended with tenderness to palpation in the midepigastric and periumbilical regions. EXTREMITIES: No cyanosis or clubbing. Mild edema in the distal lower extremities. LABORATORY DATA: CBC with a white blood cell count of 7.7, hemoglobin 11.3, hematocrit 33.5, platelets 153. Chemistry with a sodium of 141, potassium 3.2, chloride 114, CO2 21, BUN 8, creatinine 0.54, glucose 87, AST 27, ALT 84, alkaline phosphatase 88, total bilirubin 0.8, lipase 105. IMAGING DATA: CXR obtained on 03/29/17 did not show any evidence of aspiration or volume overload, although atelectasis was noted in the lower lung bases. ASSESSMENT AND PLAN: The patient is a 31-year-old female with past medical history of invasive ductal carcinoma of the left breast and recent childbirth presenting with acute onset of abdominal pain consistent with choledocholithiasis and gallstone pancreatitis. Gallstone pancreatitis. The patient initially presented with acute onset of midepigastric abdominal pain with an obstructive LFT pattern concerning for choledocholithiasis. Despite a initial drop in her LFTs within 24 hours after admission, an MRCP confirmed the diagnosis of choledocholithiasis. Ultimately, she underwent urgent ERCP on 03/28/2017 with successful sphincterotomy and extraction of three 5-6 mm gallstones. Since that time, she continues to have midepigastric abdominal pain with severity ranging between 3-5/10 as well as tachypnea and increased cough without purulent sputum production. Currently, she has had a decrease in her hemoglobin and hematocrit indicating hemodilution as well as a drop in her BUN indicating that she has been adequately fluid resuscitated for her acute pancreatitis. At this point, per BISAP criteria, she would be considered a mild pancreatitis. With the current labs, imaging, and physical examination, there is also no evidence of acute respiratory distress syndrome. RECOMMENDATIONS: 1. We would continue IV fluid administration to maintain urine output of approximately 0.5-1 mL per kg per hour. Current administration of 100 mL per hour is sufficient. 2. We would advance the patient's diet to include a clear liquid diet with decreasing IV fluid with increasing oral intake. 3. We would continue Zosyn for gallstone pancreatitis with acute choledocholithiasis and possible cholecystitis. 4. We would continue to trend LFTs daily. 5. The patient will ultimately need a cholecystectomy during this admission, but timing of which is deferred to the General Surgery Service. We will continue to follow. Please call with any questions. JANELLED
[2017-03-31] MEDS: Piperacillin/Tazobactam 3.375 GM in Sodium Chloride 0.9% 100 ML IVPB SCH ×4 (04:24→21:30)
[2017-03-31 04:59] LABS: ALT (SGPT) 65 U/L (8-55); AST (SGOT) 27 U/L (5-34); Albumin 2.6 g/dL (3.5-5.0); Alkaline Phosphatase 74 U/L (40-150); Anion Gap 9 mmol/L (10-20); BUN (Urea Nitrogen) 6 mg/dL (7.0-18.7); Bilirubin, Total 0.8 mg/dL (0.2-1.2); Calc. Creatinine Clearance 216 mL/min (70-130); Carbon Dioxide 23 mmol/L (22-29); Chloride 107 mmol/L (98-107); Estimated GFR-MDRD Greater than 90; Globulin 2.7 g/dL (2.4-3.5); Glucose 72 mg/dL (70-105); Lipase 68 U/L (8-78); Magnesium 1.8 mg/dL (1.6-2.6); Phosphorus 2.5 mg/dL (2.3-4.7); Potassium 3.2 mmol/L (3.5-5.1); Protein, Total 5.3 g/dL (6.0-8.3); Sodium 136 mmol/L (136-145)
[2017-03-31] MEDS: Sodium Chloride 0.45% 1,000 ML IV SCH ×3 (05:31→21:32)
--- NOTE | 2017-03-31 06:49 | PDOC.FM ---
- Subjective Subjective: No acute events overnight. States her pain is better this am. VSS. Adequate urine output. - Objective MAR Reviewed: Yes Vital Signs & Weight: Vital Signs (12 hours) Temp Pulse Resp Pulse Ox 03/31/17 04:00 99.4 F 03/31/17 00:00 99.7 F H 03/30/17 20:00 100.7 F H 90 35 H 98 Weight Weight 83.8 kg Most Recent Monitor Data Heart Rate from ECG 83 NIBP 114/52 NIBP BP-Mean 76 Respiration from ECG 24 SpO2 99 I&O: 03/29/17 03/30/17 03/31/17 06:59 06:59 06:59 Intake Total 6296 5358 2588 Output Total 720 2770 1750 Balance 5576 2588 838 Result Diagrams: 03/30/17 04:31 03/31/17 04:15 <Neela Tovar - Last Filed: 03/31/17 11:50> - Objective Vital Signs & Weight: Vital Signs (12 hours) Temp Pulse Resp Pulse Ox 03/31/17 12:00 97.9 F 03/31/17 08:00 98.3 F 88 26 H 96 Weight Weight 83.8 kg Most Recent Monitor Data Heart Rate from ECG 90 NIBP 125/70 NIBP BP-Mean 84 Respiration from ECG 27 SpO2 100 I&O: 03/30/17 03/31/17 04/01/17 06:59 06:59 06:59 Intake Total 5358 2588 550 Output Total 2770 1750 631 Balance 2588 838 -81 Result Diagrams: 03/30/17 04:31 03/31/17 04:15 <Elis Cook - Last Filed: 03/31/17 18:32> Phys Exam - Physical Examination Constitutional: NAD HEENT: PERRLA, moist MMs Respiratory: no wheezing, no rales, clear to auscultation bilateral mildly tachpneic Cardiovascular: RRR, no significant murmur Gastrointestinal: soft, non-tender, positive bowel sounds swollen abdomen; mildly tender Musculoskeletal: no edema, pulses present Neurological: non-focal Psychiatric: normal affect, A&O x 3 Skin: no rash, cap refill <2 seconds <Neela Tovar - Last Filed: 03/31/17 11:50> Dx/Plan (1) Sepsis Code(s): A41.9 - SEPSIS, UNSPECIFIED ORGANISM Status: Acute (2) Acute gallstone pancreatitis Code(s): K85.10 - BILIARY ACUTE PANCREATITIS WITHOUT NECROSIS OR INFECTION Status: Acute (3) Cholecystitis Code(s): K81.9 - CHOLECYSTITIS, UNSPECIFIED Status: Acute (4) Choledocholithiasis Code(s): K80.50 - CALCULUS OF BILE DUCT W/O CHOLANGITIS OR CHOLECYST W/O OBST Status: Acute (5) Cholelithiases Code(s): K80.20 - CALCULUS OF GALLBLADDER W/O CHOLECYSTITIS W/O OBSTRUCTION Status: Acute (6) Invasive ductal carcinoma of breast Code(s): C50.919 - MALIGNANT NEOPLASM OF UNSP SITE OF UNSPECIFIED FEMALE BREAST Status: Acute (7) Hyperchloremia Code(s): E87.8 - OTH DISORDERS OF ELECTROLYTE AND FLUID BALANCE, NEC Status: Acute - Plan Plan: 31 yo f with a pmhx of invasive ductal carcinoma on chemo and recent delivery via csection ~1 mo ago, presents with n/v, admitted for gallstone pancreatitis and cholecystitis. 1.)Sepsis 2/2 Gallstone Pancreatitis and cholecystitis- -S/p ERCP with removal of 3 stones in the common bile duct. It appears that the cystic duct is also obstructed. Will continue to follow gen surg and GI recs. Continue pain regimen of morphine 4mg q2h prn and 2mg q2hrs for breakthrough and zosyn for empiric treatment. Lipase and liver enzymes trending down. Clear liquid diet today. Pt has had adequate UOP. Continue 1/2NS @ 100ml/hr. Transfer to tele. 2.)Gallstone Pancreatitis-s/p ERCP with removal of 3 stones in the common bile duct. Lipase downtrending. Pain improved. Transfer to tele. Clear liquid diet. Will continue to follow GI and Gen surg recs. 3.)Cholecystitis-obstructed cystic duct as well. See above. Continue to follow gen surg recs. Anticipate surgery in 3-4 days. 4.)Choledocolithiasis- now s/p ERCP with removal of three stones (5-6mm each) from the common bile duct. However based on the ERCP images, it appears that the cystic duct is also obstructed. 5.)Cholelithiasis-Will follow with gen surg recommendations on when to do her cholecystectomy. 6.) Hyperchloremia,resolved. 7.)Invasive ductal carcinoma on chemo-Dr. Myers is following. 8.)Constipation-We will provide a bowel regimen of colace and senna dispo: transfer to tele. <Neela Tovar - Last Filed: 03/31/17 11:50> Attending Addendum - Attending Addendum Date/Time: 03/31/17 1831 I personally evaluated the patient and discussed the management with Dr. Tovar. I agree with the History, Examination, Assessment and Plan documented above with any addition or exceptions noted below. Tachycardia improved. Patient will transfer to telemetry. Replacing potassium. Will advance diet as tolerated. <Elis Cook - Last Filed: 03/31/17 18:32>
[2017-03-31] MEDS ORDERED: Potassium Chloride 20 MEQ TAB PO SCH (07:45)
--- NOTE | 2017-03-31 07:57 | PRG ---
DATE OF SERVICE: 03/31/2017 The patient is doing much better today, has no acute complaints except for some mild abdominal pain. PHYSICAL EXAMINATION: VITAL SIGNS: Her temperature is 99.7 with a T-max of 100.7, pulse 73, blood pressure 114/52. 24 bean r intake 2588, output 1750. HEENT: Unremarkable. NECK: Supple. No JVD. CHEST: Clear to auscultation. CARDIAC: S1 and S2 regular, without murmur. ABDOMEN: Soft, slightly tender to deep palpation. EXTREMITIES: No clubbing, cyanosis. She has generalized edema. LABORATORY DATA: Sodium 136, potassium 3.2, chloride 107, CO2 23, BUN 6, creatinine 0.5, glucose 72, total bilirubin is 0.8, albumin 2.6, lipase 68. White blood cell count 7.7, hematocrit 33.5, platel et count 153. ASSESSMENT: 1. Gallstone pancreatitis. 2. Cholecystitis. 3. Resolving systemic inflammatory response. RECOMMENDATIONS: The patient can be transferred to the telemetry unit. Her potassium needs to be re placed. She needs to get up and walk. Hopeful cholecystectomy at a later date.
[2017-03-31] MEDS: Enoxaparin Sodium 40 MG/0.4 ML SYRINGE SC SCH (09:03)
[2017-03-31] MEDS: Pantoprazole 40 MG VIAL IVP SCH (09:03)
--- NOTE | 2017-03-31 13:43 | PDOC.GSPN ---
Surgery Progress Note: Subj - Subjective Narrative: Pain controlled, tolerating clear liquids Surgery Progress Note: Obj - Vital signs Vital signs: Vital Signs - Most Recent Temp Pulse Resp BP Pulse Ox 97.9 F 88 26 H 118/69 96 03/31/17 12:00 03/31/17 08:00 03/31/17 08:00 03/28/17 15:59 03/31/17 08:00 - Physical Exam General: no distress Respiratory: clear to auscultation Abdomen: soft, distended, tender (mildly diffusely) Surgery Progress Note: Results - Labs Result Diagrams: 03/30/17 04:31 03/31/17 04:15 Lab results: Laboratory Results - last 24 hr 03/31/17 04:15 Sodium 136 Potassium 3.2 L Chloride 107 Carbon Dioxide 23 Anion Gap 9 L BUN 6 L Creatinine 0.50 L Estimated GFR (MDRD) Greater than 90 Glucose 72 Calcium 8.0 Phosphorus 2.5 Magnesium 1.8 Total Bilirubin 0.8 AST 27 ALT 65 H Alkaline Phosphatase 74 Serum Total Protein 5.3 L Albumin 2.6 L Globulin 2.7 Albumin/Globulin Ratio 1.0 L Lipase 68 Surgery Progress Note: A/P - Problem (1) Gallstone pancreatitis Current Visit: Yes Code(s): K85.10 - BILIARY ACUTE PANCREATITIS WITHOUT NECROSIS OR INFECTION Status: Acute Assessment and Plan: Slow improvement. Continue clears. Ok to transfer to surgical floor. Lap edy not till next week (2) Hypovolemic shock Current Visit: Yes Code(s): R57.1 - HYPOVOLEMIC SHOCK Status: Acute
--- NOTE | 2017-03-31 15:13 | PRG ---
DATE OF SERVICE: 03/31/2017 REASON FOR CONSULTATION: Gallstone pancreatitis. SUBJECTIVE: The patient states that she is feeling better than today with the administration of IV p ain medications with her current pain approximately 3-4/10 in severity. She also does complain of in creased lower back pain, but this is also improved with pain medication. Otherwise, she says that th e swelling in her extremities is improving as well as improved or lessened coughing and phlegm produc tion over the last 24 hours. Currently, she denies any nausea, vomiting, fevers, chills, odynophagia , dysphagia or constipation. OBJECTIVE: VITAL SIGNS: Temperature 97.9, pulse 90, blood pressure 125/70, respiratory rate 27, satting 100% on room air. GENERAL: The patient is lying in bed, in no acute distress. He is alert and oriented x4, [place] sp eaking only. CARDIOVASCULAR: Regular rate and rhythm with no discernible murmurs, gallops or rubs. RESPIRATORY: Clear to auscultation bilaterally with no discernible wheezes or rales. ABDOMEN: Normoactive bowel sounds, soft, mild distention with tenderness to palpation in the midepig astric and periumbilical regions and minimal tenderness to palpation in other abdominal quadrants. EXTREMITIES: No cyanosis or clubbing. Mild edema in the distal lower extremities. LABORATORY DATA: Chemistry with a sodium of 136, potassium 3.2, chloride 107, CO2 23, BUN 6, creatin ine 0.5, glucose 72, AST 27, ALT 65, alkaline phosphatase 74, total bilirubin 0.8, calcium 8.0, magne sium 1.8. IMAGING DATA: No current GI imaging is available for review. ASSESSMENT AND PLAN: The patient is a 31-year-old female with past medical history of invasive ducta l carcinoma of the left breast and recent childbirth presenting with acute onset of abdominal pain co nsistent with gallstone pancreatitis. Gallstone pancreatitis. The patient presented with acute onset midepigastric abdominal pain with obs tructive LFT pattern concerning for choledocholithiasis that was later confirmed with MRCP. Ultimate ly, she underwent ERCP on 03/28/2017. Successful extraction of three 5-6 mm stones. Since then with adequate fluid resuscitation and IV pain control. Her abdominal pain has improved and last night an d today she was able to tolerate a clear liquid diet. Per labs, she had a concurrent drop in her H&H as well as her BUN indicating that she has been adequately fluid resuscitated for acute pancreatitis and per BISAP criteria, both on admission and now, would be considered having had an acute attack of mild pancreatitis. With the current labs, imaging, and physical examination, there is no evidence o f acute respiratory distress syndrome. RECOMMENDATIONS: 1. We would continue IV fluid administration, but with a low threshold to discontinue with increasin g oral intake. 2. We would advance the patient's diet as tolerated with ultimate advancement to a low fat diet. 3. Continue antibiotics. 4. Continue to trend LFTs daily. 5. Defer to General Surgery sService for cholecystectomy. We will continue to follow. Please call with any questions.
[2017-03-31] MEDS ORDERED: Morphine 5 MG/ML SYRINGE SLOW IVP PRN (19:04)
[2017-04-01] MEDS: Morphine 5 MG/ML SYRINGE SLOW IVP PRN ×5 (00:33→14:24)
[2017-04-01] MEDS: Piperacillin/Tazobactam 3.375 GM in Sodium Chloride 0.9% 100 ML IVPB SCH ×4 (04:04→21:33)
[2017-04-01 06:07] LABS: ALT (SGPT) 65 U/L (8-55); AST (SGOT) 49 U/L (5-34); Albumin 2.6 g/dL (3.5-5.0); Alkaline Phosphatase 72 U/L (40-150); Anion Gap 10 mmol/L (10-20); BUN (Urea Nitrogen) 4 mg/dL (7.0-18.7); Bilirubin, Total 0.6 mg/dL (0.2-1.2); Calc. Creatinine Clearance 202 mL/min (70-130); Carbon Dioxide 22 mmol/L (22-29); Chloride 108 mmol/L (98-107); Estimated GFR-MDRD Greater than 90; Globulin 2.7 g/dL (2.4-3.5); Glucose 91 mg/dL (70-105); Magnesium 1.7 mg/dL (1.6-2.6); Phosphorus 3.1 mg/dL (2.3-4.7); Potassium 3.3 mmol/L (3.5-5.1); Protein, Total 5.3 g/dL (6.0-8.3); Sodium 137 mmol/L (136-145)
[2017-04-01] MEDS: Sodium Chloride 0.45% 1,000 ML IV SCH (08:28)
[2017-04-01] MEDS ORDERED: Potassium Chloride 20 MEQ TAB PO SCH (08:30)
[2017-04-01 08:40] LABS: #Eosinphils 0.1 thou/uL (0.0-0.7); #Lymphocytes 0.8 thou/uL (1.20-3.40); #Monocytes 0.3 thou/uL (0.11-0.59); #Neutrophils 5.4 thou/uL (1.40-6.50); %Basophils 0.2 % (0.0-1.0); %Eosinophils 0.8 % (0.0-10.0); %Lymphocytes 11.7 % (21.0-51.0); %Monocytes 4.1 % (0.0-10.0); %Neutrophils 83.2 % (42.0-75.0); Hemoglobin 10.4 g/dL (12.0-16.0); Mean Corpuscular HGB CONC 33.2 g/dL (32.0-36.0); Mean Corpuscular Hemoglobin 29.6 pg (27.0-31.0); Mean Corpuscular Volume 89.2 fl (81.0-99.0); Mean Platelet Volume 7.9 fL (7.4-10.4); Platelet Count 175 thou/uL (130-400); RBC Distribution Width 13.1 % (11.5-14.5); White Blood Cell (WBC) Count 6.5 thou/uL (4.8-10.8)
[2017-04-01] MEDS: Pantoprazole 40 MG VIAL IVP SCH (09:24)
[2017-04-01] MEDS: Enoxaparin Sodium 40 MG/0.4 ML SYRINGE SC SCH (09:25)
--- NOTE | 2017-04-01 14:09 | PDOC.FM ---
- Subjective Subjective: No acute events overnight. States pain is controlled. Denies n/v. No other complaints. - Objective MAR Reviewed: Yes Vital Signs & Weight: Vital Signs (12 hours) Temp Pulse Pulse Pulse Resp BP BP 04/01/17 11:51 100.2 F H 91 16 04/01/17 09:00 93 98 117/68 121/75 04/01/17 07:52 100 F H 95 16 04/01/17 07:30 98.1 F 88 18 04/01/17 04:20 98.1 F 88 18 BP Pulse Ox 04/01/17 11:51 135/75 96 04/01/17 09:00 04/01/17 07:52 123/72 94 L 04/01/17 07:30 95 04/01/17 04:20 119/69 98 Weight Weight 78.517 kg Most Recent Monitor Data Heart Rate from ECG 90 NIBP 125/70 NIBP BP-Mean 84 Respiration from ECG 27 SpO2 100 I&O: 03/31/17 04/01/17 04/02/17 06:59 06:59 06:59 Intake Total 2588 3302 600 Output Total 4119 7031 1150 Balance 838 -4452 -550 Result Diagrams: 04/01/17 04:31 04/01/17 04:31 <Neela Tovar - Last Filed: 04/01/17 14:10> - Objective Vital Signs & Weight: Vital Signs (12 hours) Temp Pulse Pulse Pulse Resp BP BP 04/01/17 20:02 99.7 F H 105 H 18 04/01/17 15:52 100.8 F H 118 H 18 04/01/17 15:15 100.8 F H 118 H 18 04/01/17 14:54 04/01/17 11:51 100.2 F H 91 16 04/01/17 09:00 93 98 117/68 121/75 BP Pulse Ox 04/01/17 20:02 114/76 92 L 04/01/17 15:52 93 L 04/01/17 15:15 126/83 93 L 04/01/17 14:54 94 L 04/01/17 11:51 135/75 96 04/01/17 09:00 Weight Weight 78.517 kg Most Recent Monitor Data Heart Rate from ECG 90 NIBP 125/70 NIBP BP-Mean 84 Respiration from ECG 27 SpO2 100 I&O: 03/31/17 04/01/17 04/02/17 06:59 06:59 06:59 Intake Total 2588 2579 600 Output Total 1750 7031 1150 Balance 091 -0009 -347 Result Diagrams: 04/01/17 04:31 04/01/17 04:31 <JoyceElis vitale - Last Filed: 04/01/17 20:30> Phys Exam - Physical Examination Constitutional: NAD HEENT: PERRLA, moist MMs Respiratory: no wheezing, no rales, clear to auscultation bilateral Cardiovascular: RRR, no significant murmur Gastrointestinal: soft, non-tender, positive bowel sounds mild ascites Neurological: non-focal Psychiatric: normal affect, A&O x 3 Skin: no rash <Neela Tovar - Last Filed: 04/01/17 14:10> Dx/Plan (1) Sepsis Code(s): A41.9 - SEPSIS, UNSPECIFIED ORGANISM Status: Acute (2) Acute gallstone pancreatitis Code(s): K85.10 - BILIARY ACUTE PANCREATITIS WITHOUT NECROSIS OR INFECTION Status: Acute (3) Cholecystitis Code(s): K81.9 - CHOLECYSTITIS, UNSPECIFIED Status: Acute (4) Choledocholithiasis Code(s): K80.50 - CALCULUS OF BILE DUCT W/O CHOLANGITIS OR CHOLECYST W/O OBST Status: Acute (5) Cholelithiases Code(s): K80.20 - CALCULUS OF GALLBLADDER W/O CHOLECYSTITIS W/O OBSTRUCTION Status: Acute (6) Invasive ductal carcinoma of breast Code(s): C50.919 - MALIGNANT NEOPLASM OF UNSP SITE OF UNSPECIFIED FEMALE BREAST Status: Acute (7) Hyperchloremia Code(s): E87.8 - OTH DISORDERS OF ELECTROLYTE AND FLUID BALANCE, NEC Status: Acute - Plan Plan: 31 yo f with a pmhx of invasive ductal carcinoma on chemo and recent delivery via csection ~1 mo ago, presents with n/v, admitted for gallstone pancreatitis and cholecystitis. 1.)Sepsis 2/2 Gallstone Pancreatitis and cholecystitis, improved. -S/p ERCP with removal of 3 stones in the common bile duct. It appears that the cystic duct is also obstructed. Will continue to follow gen surg and GI recs. Continue pain regimen of morphine 4mg q2h prn and 2mg q2hrs for breakthrough and zosyn for empiric treatment. Advance diet as tolerated today. Pt has had adequate UOP. Decreased fluids to 1/2NS @ 50ml/hr. Transfer to third floor surgery. 2.)Gallstone Pancreatitis-s/p ERCP with removal of 3 stones in the common bile duct. Lipase downtrending. Pain improved. Transfer to tele. Clear liquid diet. Will continue to follow GI and Gen surg recs. 3.)Cholecystitis-obstructed cystic duct as well. See above. Continue to follow gen surg recs. Anticipate surgery Tuesday. 4.)Choledocolithiasis- now s/p ERCP with removal of three stones (5-6mm each) from the common bile duct. However based on the ERCP images, it appears that the cystic duct is also obstructed. 5.)Cholelithiasis-Will follow with gen surg recommendations on when to do her cholecystectomy. 6.) Hyperchloremia,resolved. 7.)Invasive ductal carcinoma on chemo-Dr. Myers is following. 8.)Constipation-We will continue the bowel regimen of colace and senna dispo: transfer to 3rd floor surgery. <Neela Tovar - Last Filed: 04/01/17 14:10> Attending Addendum - Attending Addendum Date/Time: 04/01/17 [id number] I personally evaluated the patient and discussed the management with Dr. Tovar. I agree with the History, Examination, Assessment and Plan documented above with any addition or exceptions noted below. The patient's pain is better controlled. Will transfer to surgical. Liver enzymes went up today. Continue to trend. Advance diet to full liquids. Plan for cholecystectomy next week. <Elis Cook - Last Filed: 04/01/17 20:30>
--- NOTE | 2017-04-01 15:14 | PDOC.GSPN ---
Surgery Progress Note: Subj - Subjective Patient reports: no new complaints Surgery Progress Note: Obj - Vital signs Vital signs: Vital Signs - Most Recent Temp Pulse Resp BP Pulse Ox 100.2 F H 91 16 135/75 94 L 04/01/17 11:51 04/01/17 11:51 04/01/17 11:51 04/01/17 11:51 04/01/17 14:54 - Physical Exam General: no distress Cardiovascular: regular rate and rhythm Respiratory: clear to auscultation Abdomen: soft, appropriately tender Surgery Progress Note: Results - Labs Result Diagrams: 04/01/17 04:31 04/01/17 04:31 Lab results: Laboratory Results - last 24 hr 04/01/17 04/01/17 04:31 04:31 WBC 6.5 RBC 3.50 L Hgb 10.4 L Hct 31.3 L MCV 89.2 MCH 29.6 MCHC 33.2 RDW 13.1 Plt Count 175 MPV 7.9 Neutrophils % 83.2 H Lymphocytes % 11.7 L Monocytes % 4.1 Eosinophils % 0.8 Basophils % 0.2 Neutrophils # 5.4 Lymphocytes # 0.8 L Monocytes # 0.3 Eosinophils # 0.1 Basophils # 0.0 Sodium 137 Potassium 3.3 L Chloride 108 H Carbon Dioxide 22 Anion Gap 10 BUN 4 L Creatinine 0.50 L Estimated GFR (MDRD) Greater than 90 Glucose 91 Calcium 8.0 Phosphorus 3.1 Magnesium 1.7 Total Bilirubin 0.6 AST 49 H ALT 65 H Alkaline Phosphatase 72 Serum Total Protein 5.3 L Albumin 2.6 L Globulin 2.7 Albumin/Globulin Ratio 1.0 L Surgery Progress Note: A/P - Problem (1) Gallstone pancreatitis Current Visit: Yes Code(s): K85.10 - BILIARY ACUTE PANCREATITIS WITHOUT NECROSIS OR INFECTION Status: Acute Assessment and Plan: Plan lap edy Tuesday (2) Hypovolemic shock Current Visit: Yes Code(s): R57.1 - HYPOVOLEMIC SHOCK Status: Acute
--- NOTE | 2017-04-01 23:51 | PRG ---
DATE OF SERVICE: 04/01/2017 REASON FOR CONSULTATION: Gallstone pancreatitis. SUBJECTIVE: The patient states that she is feeling better today when compared to previous with impro vement of her abdominal and back pain. She has also been able to get out of bed and ambulate effecti vely around the [place] with no difficulties at that time. Currently, denies any nausea, vomiting, feve rs, chills, odynophagia, dysphagia or constipation. OBJECTIVE: VITAL SIGNS: Temperature 99.7, pulse 105, blood pressure 114/76, respiratory rate 18, satting 92% on room air. GENERAL: The patient walking around the room, in no acute distress. CARDIOVASCULAR: Regular rate and rhythm with no discernible murmurs, gallops or rubs. RESPIRATORY: Clear to auscultation bilaterally with no discernible wheezes or rales. ABDOMEN: Normoactive bowel sounds, soft, mild distention with tenderness to palpation in the mid epi gastric and periumbilical regions. EXTREMITIES: No cyanosis, clubbing or edema. LABORATORY DATA: Chemistry with a sodium of 137, potassium 3.3, chloride 108, CO2 of 22, BUN 4, crea tinine 0.5, glucose 91, AST 49, ALT 65, alkaline phosphatase 72, total bilirubin 0.6. IMAGING DATA: No current GI imaging is available for review. ASSESSMENT AND PLAN: The patient is a 31-year-old female with past medical history of invasive ducta l carcinoma of the left breast and recent childbirth presenting with acute onset of abdominal pain co nsistent with gallstone pancreatitis. Gallstone pancreatitis: The patient presented with acute onset midepigastric abdominal pain with MRC P showing choledocholithiasis in addition to elevated lipase consistent with gallstone pancreatitis. Ultimately underwent ERCP on 03/28/2017 with successful extraction of three 5-6 mm stones. Her clin ical status has continued to improve since ERCP with mild improvement in her abdominal pain, but impr ovement of her back pain and lower extremity edema. She has been able to tolerate advancement of her diet well with no problems or events. Hemoconcentration has been effectively treated with IV fluid administration and decrease of her BUN on routine labs today. RECOMMENDATIONS: 1. Can continue IV fluid administration if needed, but with advancement of diet, we would consider d iscontinuation of IV fluids. 2. Continue antibiotics. 3. Continue to trend LFTs for the time being for any additional occurrence of choledocholithiasis du ring this hospitalization. 4. Defer to General Surgery Service for cholecystectomy on Tuesday. We will sign off at this time. Please call with any additional questions.
[2017-04-02] MEDS: Piperacillin/Tazobactam 3.375 GM in Sodium Chloride 0.9% 100 ML IVPB SCH ×4 (04:25→21:13)
[2017-04-02] MEDS: Sodium Chloride 0.45% 1,000 ML IV SCH (04:30)
[2017-04-02 06:05] LABS: #Eosinphils 0.1 thou/uL (0.0-0.7); #Monocytes 0.5 thou/uL (0.11-0.59); #Neutrophils 7.8 thou/uL (1.40-6.50); %Eosinophils 0.8 % (0.0-10.0); %Lymphocytes 10.3 % (21.0-51.0); %Monocytes 5.3 % (0.0-10.0); %Neutrophils 83.6 % (42.0-75.0); Hemoglobin 10.2 g/dL (12.0-16.0); Mean Corpuscular Hemoglobin 28.2 pg (27.0-31.0); Mean Corpuscular Volume 88.1 fl (81.0-99.0); Mean Platelet Volume 7.6 fL (7.4-10.4); Platelet Count 213 thou/uL (130-400); RBC Distribution Width 13.1 % (11.5-14.5); Red Blood Cell (RBC) Count 3.61 mill/uL (4.20-5.40); White Blood Cell (WBC) Count 9.3 thou/uL (4.8-10.8)
[2017-04-02 06:23] LABS: ALT (SGPT) 82 U/L (8-55); AST (SGOT) 71 U/L (5-34); Albumin 2.5 g/dL (3.5-5.0); Alkaline Phosphatase 77 U/L (40-150); Anion Gap 9 mmol/L (10-20); BUN (Urea Nitrogen) Less than 4 mg/dL (7.0-18.7); Bilirubin, Total 0.5 mg/dL (0.2-1.2); Calc. Creatinine Clearance 221 mL/min (70-130); Carbon Dioxide 28 mmol/L (22-29); Chloride 105 mmol/L (98-107); Estimated GFR-MDRD Greater than 90; Globulin 2.7 g/dL (2.4-3.5); Glucose 125 mg/dL (70-105); Magnesium 1.8 mg/dL (1.6-2.6); Potassium 3.5 mmol/L (3.5-5.1); Protein, Total 5.2 g/dL (6.0-8.3); Sodium 138 mmol/L (136-145)
--- NOTE | 2017-04-02 07:04 | PDOC.FM ---
- Subjective Subjective: Fevered yesterday afternoon. VSS and normal this am. Endorses persistent abdominal pain. - Objective MAR Reviewed: Yes Vital Signs & Weight: Vital Signs (12 hours) Temp Pulse Resp BP Pulse Ox 04/02/17 05:06 98.2 F 99 17 114/76 92 L 04/02/17 00:28 99.7 F H 104 H 17 113/76 90 L 04/01/17 20:02 99.7 F H 105 H 18 114/76 92 L 04/01/17 20:00 99.7 F H 105 H 18 92 L Weight Weight 87.543 kg Most Recent Monitor Data Heart Rate from ECG 90 NIBP 125/70 NIBP BP-Mean 84 Respiration from ECG 27 SpO2 100 I&O: 04/01/17 04/02/17 04/03/17 06:59 06:59 06:59 Intake Total 2579 1200 Output Total 7031 1150 Balance -4452 50 Result Diagrams: 04/02/17 05:51 04/02/17 05:51 <Neela Tovar - Last Filed: 04/02/17 11:42> - Objective Vital Signs & Weight: Vital Signs (12 hours) Temp Pulse Resp BP Pulse Ox 04/02/17 11:12 99.2 F 101 H 24 H 110/73 93 L 04/02/17 08:00 99.1 F 97 18 04/02/17 07:21 99.1 F 97 18 108/73 92 L 04/02/17 05:06 98.2 F 99 17 114/76 92 L 04/02/17 00:28 99.7 F H 104 H 17 113/76 90 L Weight Weight 87.543 kg Most Recent Monitor Data Heart Rate from ECG 90 NIBP 125/70 NIBP BP-Mean 84 Respiration from ECG 27 SpO2 100 I&O: 04/01/17 04/02/17 04/03/17 06:59 06:59 06:59 Intake Total 2579 1200 Output Total 7031 1150 Balance -4452 50 Result Diagrams: 04/02/17 05:51 04/02/17 05:51 <Elis Cook - Last Filed: 04/02/17 11:46> Phys Exam - Physical Examination Constitutional: NAD Respiratory: no wheezing, no rales Cardiovascular: RRR, no significant murmur Gastrointestinal: soft, positive bowel sounds mildly tender to palpation; mild ascites no bilateral edema in upper or lower extremities <Neela Tovar - Last Filed: 04/02/17 11:42> Dx/Plan (1) Sepsis Code(s): A41.9 - SEPSIS, UNSPECIFIED ORGANISM Status: Acute (2) Acute gallstone pancreatitis Code(s): K85.10 - BILIARY ACUTE PANCREATITIS WITHOUT NECROSIS OR INFECTION Status: Acute (3) Cholecystitis Code(s): K81.9 - CHOLECYSTITIS, UNSPECIFIED Status: Acute (4) Choledocholithiasis Code(s): K80.50 - CALCULUS OF BILE DUCT W/O CHOLANGITIS OR CHOLECYST W/O OBST Status: Acute (5) Cholelithiases Code(s): K80.20 - CALCULUS OF GALLBLADDER W/O CHOLECYSTITIS W/O OBSTRUCTION Status: Acute (6) Invasive ductal carcinoma of breast Code(s): C50.919 - MALIGNANT NEOPLASM OF UNSP SITE OF UNSPECIFIED FEMALE BREAST Status: Acute (7) Hyperchloremia Code(s): E87.8 - OTH DISORDERS OF ELECTROLYTE AND FLUID BALANCE, NEC Status: Acute - Plan Plan: 31 yo f with a pmhx of invasive ductal carcinoma on chemo and recent delivery via csection ~1 mo ago, presents with n/v, admitted for gallstone pancreatitis and cholecystitis. 1.)Sepsis 2/2 Gallstone Pancreatitis and cholecystitis, improved. -S/p ERCP with removal of 3 stones in the common bile duct. It appears that the cystic duct is also obstructed. Will continue to follow gen surg and GI recs. Continue pain regimen of morphine 4mg q2h prn and 2mg q2hrs for breakthrough and zosyn for empiric treatment. Advance diet as tolerated today. Pt has had adequate UOP. Plan to stop fluids today. Lap edy Tuesday per Dr. Marquez. 2.)Gallstone Pancreatitis-s/p ERCP with removal of 3 stones in the common bile duct. Lipase downtrending. Pain improved. Will continue to follow GI and Gen surg recs. 3.)Cholecystitis-obstructed cystic duct as well. See above. Continue to follow gen surg recs. Anticipate surgery Tuesday. 4.)Choledocolithiasis- now s/p ERCP with removal of three stones (5-6mm each) from the common bile duct. However based on the ERCP images, it appears that the cystic duct is also obstructed. 5.)Cholelithiasis-Will follow with gen surg recommendations on when to do her cholecystectomy. Likely Tuesday. 6.) Hyperchloremia,resolved. 7.)Invasive ductal carcinoma on chemo-Dr. Myers is following. 8.)Constipation-We will continue the bowel regimen of colace and senna dispo: Lap edy Tuesday. <Neela Tovar - Last Filed: 04/02/17 11:42> Attending Addendum - Attending Addendum Date/Time: 04/02/17 0116 I personally evaluated the patient and discussed the management with Dr. Tovar. I agree with the History, Examination, Assessment and Plan documented above with any addition or exceptions noted below. Patient with worse abdominal pain with solid food. Will back down to liquids. Continue zosyn. LFT's increasing. Will have lap edy on Tuesday. <Elis Cook - Last Filed: 04/02/17 11:46>
[2017-04-02] MEDS: Enoxaparin Sodium 40 MG/0.4 ML SYRINGE SC SCH (08:49)
[2017-04-02] MEDS: Pantoprazole 40 MG VIAL IVP SCH (08:50)
--- NOTE | 2017-04-02 16:57 | PRG ---
DATE OF SERVICE: 04/02/2017 SUBJECTIVE: Patient is doing well today. She denies any nausea or vomiting. She is tolerating full liquids. I have asked her if she wanted something more solid, she does not. OBJECTIVE: Temperature 99.6 degrees, heart rate 107, blood pressure 113/76. LUNGS: Clear to auscultation. CARDIAC: Regular rate and rhythm without murmur, rub, or gallop. ABDOMEN: Soft, bowel sounds present. LABORATORY DATA: White count 9 and hemoglobin 10. Sodium 138; BUN less than 4; creatinine 0.51; freeman irubin total 1.8, which is stable. ASSESSMENT AND PLAN: Doing well. Plan laparoscopic cholecystectomy next week per Dr. Davies. No c hanges in her care at this time.
[2017-04-03] MEDS: Sodium Chloride 0.45% 1,000 ML IV SCH ×3 (01:41→14:22)
[2017-04-03 04:18] LABS: #Eosinphils 0.1 thou/uL (0.0-0.7); #Lymphocytes 1.3 thou/uL (1.20-3.40); #Monocytes 0.9 thou/uL (0.11-0.59); #Neutrophils 9.4 thou/uL (1.40-6.50); %Basophils 0.2 % (0.0-1.0); %Eosinophils 0.7 % (0.0-10.0); %Lymphocytes 10.9 % (21.0-51.0); %Monocytes 7.2 % (0.0-10.0); %Neutrophils 80.9 % (42.0-75.0); Hemoglobin 9.6 g/dL (12.0-16.0); Mean Corpuscular Volume 87.6 fl (81.0-99.0); Mean Platelet Volume 7.8 fL (7.4-10.4); Platelet Count 270 thou/uL (130-400); RBC Distribution Width 13.2 % (11.5-14.5); Red Blood Cell (RBC) Count 3.31 mill/uL (4.20-5.40); White Blood Cell (WBC) Count 11.7 thou/uL (4.8-10.8)
[2017-04-03] MEDS: Piperacillin/Tazobactam 3.375 GM in Sodium Chloride 0.9% 100 ML IVPB SCH ×4 (04:21→21:53)
[2017-04-03 07:46] LABS: Iron 13 ug/dL (50-170); Iron Binding Capacity, Total 148 mcg/dL (265-497)
[2017-04-03] MEDS: Sodium Chloride 0.9% 500 ML IV SCH ×2 (07:50→08:24)
[2017-04-03] MEDS: Pantoprazole 40 MG VIAL IVP SCH (08:15)
[2017-04-03] MEDS: Enoxaparin Sodium 40 MG/0.4 ML SYRINGE SC SCH (08:15)
[2017-04-03 09:07] LABS: Folate (Folic Acid) 14.9 ng/mL (7.0-31.4)
--- NOTE | 2017-04-03 10:04 | PDOC.FM ---
- Subjective Subjective: No acute events overnight. Endorses mild abdominal pain. - Objective Vital Signs & Weight: Vital Signs (12 hours) Temp Pulse Resp BP Pulse Ox 04/03/17 05:26 94 L 04/03/17 04:00 99.8 F H 90 20 114/76 94 L 04/03/17 00:00 98.4 F 101 H 18 121/77 95 Weight Weight 87.543 kg Most Recent Monitor Data Heart Rate from ECG 90 NIBP 125/70 NIBP BP-Mean 84 Respiration from ECG 27 SpO2 100 I&O: 04/02/17 04/03/17 04/04/17 06:59 06:59 06:59 Intake Total 1200 2850 Output Total 1150 450 Balance 50 2400 Result Diagrams: 04/03/17 03:37 04/02/17 05:51 <Neela Tovar - Last Filed: 04/03/17 10:00> - Objective Vital Signs & Weight: Vital Signs (12 hours) Temp Pulse Resp BP Pulse Ox 04/03/17 20:00 99.3 F 96 18 117/76 96 04/03/17 16:00 100.5 F H 89 14 110/73 96 04/03/17 11:15 98.1 F 87 20 110/73 100 Weight Weight 87.543 kg Most Recent Monitor Data Heart Rate from ECG 90 NIBP 125/70 NIBP BP-Mean 84 Respiration from ECG 27 SpO2 100 I&O: 04/02/17 04/03/17 04/04/17 06:59 06:59 06:59 Intake Total 1200 2850 4150 Output Total 4162 501 6760 Balance 50 2400 550 Result Diagrams: 04/03/17 03:37 04/02/17 05:51 <Elis Cook - Last Filed: 04/03/17 20:19> Phys Exam - Physical Examination Respiratory: no wheezing, clear to auscultation bilateral Cardiovascular: RRR, no significant murmur Gastrointestinal: soft (Pt with mild right upper quadrant tenderness), positive bowel sounds Psychiatric: normal affect, A&O x 3 <Elis Cook - Last Filed: 04/03/17 20:19> Dx/Plan (1) Sepsis Code(s): A41.9 - SEPSIS, UNSPECIFIED ORGANISM Status: Acute (2) Acute gallstone pancreatitis Code(s): K85.10 - BILIARY ACUTE PANCREATITIS WITHOUT NECROSIS OR INFECTION Status: Acute (3) Cholecystitis Code(s): K81.9 - CHOLECYSTITIS, UNSPECIFIED Status: Acute (4) Choledocholithiasis Code(s): K80.50 - CALCULUS OF BILE DUCT W/O CHOLANGITIS OR CHOLECYST W/O OBST Status: Acute (5) Cholelithiases Code(s): K80.20 - CALCULUS OF GALLBLADDER W/O CHOLECYSTITIS W/O OBSTRUCTION Status: Acute (6) Invasive ductal carcinoma of breast Code(s): C50.919 - MALIGNANT NEOPLASM OF UNSP SITE OF UNSPECIFIED FEMALE BREAST Status: Acute (7) Hyperchloremia Code(s): E87.8 - OTH DISORDERS OF ELECTROLYTE AND FLUID BALANCE, NEC Status: Acute - Plan Plan: 31 yo f with a pmhx of invasive ductal carcinoma on chemo and recent delivery via csection ~1 mo ago, presents with n/v, admitted for gallstone pancreatitis and cholecystitis, now s/p ERCP with removal of 3 stones, pending cholecystectomy. 1.)Sepsis 2/2 Gallstone Pancreatitis and cholecystitis, improved. -S/p ERCP with removal of 3 stones in the common bile duct. It appears that the cystic duct is also obstructed. Will continue to follow gen surg and GI recs. Continue pain regimen of morphine 4mg q2h prn and 2mg q2hrs for breakthrough and zosyn for empiric treatment. Continue full liquid diet today. NPO at midnight. Pt had borderline UOP over past 24 hours. Gave bolus of 500ml. Lap edy Tuesday per Dr. Marquez. 2.)Cholecystitis-Liver enzymes uptrending. WBC increased this am. Afebrile for > 24 hours. Zosyn is on empiriclaly. Obstructed cystic duct as well. Continue to follow gen surg recs. Anticipate surgery Tuesday. 3). Anemia, normocytic. -H/H downtrending, could be dilutional however we will order iron studies, vit b12/folate, and an FOBT to better evaluate. 4.)Gallstone Pancreatitis- -s/p ERCP with removal of 3 stones in the common bile duct. Lipase downtrending. Pain improved. Will continue to follow GI and Gen surg recs. 5.)Choledocolithiasis- now s/p ERCP with removal of three stones (5-6mm each) from the common bile duct. However based on the ERCP images, it appears that the cystic duct is also obstructed. 6.)Cholelithiasis-Will follow with gen surg recommendations on when to do her cholecystectomy. Likely Tuesday. 7.) Hyperchloremia,resolved. 8.)Invasive ductal carcinoma on chemo-Dr. Myers is following. 9.)Constipation-We will continue the bowel regimen of colace and senna dispo: Lap edy Tuesday. <Neela Tovar - Last Filed: 04/03/17 10:00> Attending Addendum - Attending Addendum Date/Time: 04/03/17 2019 I personally evaluated the patient and discussed the management with Dr. Tovar. I agree with the History, Examination, Assessment and Plan documented above with any addition or exceptions noted below. The patient is tolerating full liquids. Still has abdominal pain but overall improved. Will have lap edy tomorrow. <Elis Cook - Last Filed: 04/03/17 20:19>
--- NOTE | 2017-04-03 16:48 | PRG ---
DATE OF SERVICE: 04/03/2017 SUBJECTIVE: Ms. Glvoer is doing well today. She is feeling better. She has been tolerating her full liquid. She has not had any nausea or vomiting. OBJECTIVE: VITAL SIGNS: Temperature 98.1 degrees, 87, 20, 110/73. LUNGS: Clear to auscultation. CARDIAC: Regular rate and rhythm without murmur or gallop. ABDOMEN: Soft, nontender. LABORATORY DATA: White count 11, hemoglobin 9.6. Liver function tests essentially normal with waxin g and waning AST and ALT. Bilirubin is normal. ASSESSMENT AND PLAN: Resolving biliary pancreatitis. Dr. Davies will return tomorrow. Plan is for laparoscopic cholecystectomy and cholangiogram is tomorrow. Questions have been answered .
[2017-04-04] MEDS: Sodium Chloride 0.45% 1,000 ML IV SCH ×3 (02:38→21:10)
[2017-04-04] MEDS: Piperacillin/Tazobactam 3.375 GM in Sodium Chloride 0.9% 100 ML IVPB SCH ×4 (04:08→21:08)
[2017-04-04 05:48] LABS: #Eosinphils 0.1 thou/uL (0.0-0.7); #Lymphocytes 1.5 thou/uL (1.20-3.40); #Monocytes 0.9 thou/uL (0.11-0.59); #Neutrophils 9.3 thou/uL (1.40-6.50); %Basophils 0.3 % (0.0-1.0); %Lymphocytes 12.3 % (21.0-51.0); %Monocytes 7.8 % (0.0-10.0); %Neutrophils 78.7 % (42.0-75.0); Mean Corpuscular Hemoglobin 29.2 pg (27.0-31.0); Mean Corpuscular Volume 88.7 fl (81.0-99.0); Mean Platelet Volume 7.8 fL (7.4-10.4); Platelet Count 398 thou/uL (130-400); RBC Distribution Width 13.4 % (11.5-14.5); Red Blood Cell (RBC) Count 3.77 mill/uL (4.20-5.40); White Blood Cell (WBC) Count 11.8 thou/uL (4.8-10.8)
[2017-04-04 06:01] LABS: ALT (SGPT) 133 U/L (8-55); AST (SGOT) 107 U/L (5-34); Albumin 2.9 g/dL (3.5-5.0); Alkaline Phosphatase 106 U/L (40-150); Anion Gap 11 mmol/L (10-20); BUN (Urea Nitrogen) Less than 4 mg/dL (7.0-18.7); Bilirubin, Total 0.5 mg/dL (0.2-1.2); Calc. Creatinine Clearance 209 mL/min (70-130); Calcium 8.3 mg/dL (7.8-10.44); Carbon Dioxide 26 mmol/L (22-29); Chloride 104 mmol/L (98-107); Estimated GFR-MDRD Greater than 90; Globulin 2.9 g/dL (2.4-3.5); Glucose 101 mg/dL (70-105); Magnesium 2.2 mg/dL (1.6-2.6); Potassium 3.8 mmol/L (3.5-5.1); Protein, Total 5.8 g/dL (6.0-8.3); Sodium 137 mmol/L (136-145)
[2017-04-04] MEDS: Pantoprazole 40 MG VIAL IVP SCH (08:24)
[2017-04-04] MEDS: Enoxaparin Sodium 40 MG/0.4 ML SYRINGE SC SCH (08:28)
--- NOTE | 2017-04-04 09:10 | PDOC.FM ---
- Subjective Subjective: Patient reports that her abdominal pain worsened significantly overnight. She states that yesterday her pain was 3/10 and overnight her pain worsened to 10/ 10. She denies N/V/D/C. She denies chest pain or SOB. She reports her abdominal pain radiates to her back. Denies fevers or chills. Reports that the morphine helps some, but doesn't completely resolve the pain. - Objective MAR Reviewed: Yes Vital Signs & Weight: Vital Signs (12 hours) Temp Pulse Resp BP Pulse Ox 04/04/17 08:10 99.8 F H 90 36 H 127/84 95 04/04/17 07:00 99.4 F 86 16 04/04/17 04:25 97 04/04/17 04:00 99.4 F 86 16 114/76 97 04/04/17 00:00 97.8 F 100 16 124/84 95 Weight Weight 87.543 kg Most Recent Monitor Data Heart Rate from ECG 90 NIBP 125/70 NIBP BP-Mean 84 Respiration from ECG 27 SpO2 100 I&O: 04/03/17 04/04/17 04/05/17 06:59 06:59 06:59 Intake Total 2850 5650 Output Total 450 4600 Balance 2400 1050 Result Diagrams: 04/04/17 05:29 04/04/17 05:29 <Samantha Gaston - Last Filed: 04/04/17 09:06> - Objective Vital Signs & Weight: Vital Signs (12 hours) Temp Pulse Resp BP Pulse Ox 04/05/17 11:40 98.0 F 70 18 123/76 96 04/05/17 08:10 64 18 104/70 96 04/05/17 03:56 98.5 F 65 20 104/71 94 L Weight Weight 87.543 kg Most Recent Monitor Data Heart Rate from ECG 90 NIBP 125/70 NIBP BP-Mean 84 Respiration from ECG 27 SpO2 100 I&O: 04/04/17 04/05/17 04/06/17 06:59 06:59 06:59 Intake Total 5650 2550 Output Total 4600 500 Balance 1050 2050 Result Diagrams: 04/05/17 03:49 04/05/17 03:49 <oRber Velásquez - Last Filed: 04/05/17 15:13> Phys Exam - Physical Examination Constitutional: NAD HEENT: moist MMs Respiratory: no wheezing, no rales, no rhonchi, clear to auscultation bilateral Cardiovascular: RRR, no significant murmur, no rub Gastrointestinal: positive bowel sounds tender to palpation worse in JEN and RUQ, distended Musculoskeletal: no edema, pulses present Neurological: non-focal, moves all 4 limbs Psychiatric: normal affect, A&O x 3 <Samantha Gaston - Last Filed: 04/04/17 09:06> Dx/Plan (1) Sepsis Code(s): A41.9 - SEPSIS, UNSPECIFIED ORGANISM Status: Acute QualifierTitle: Sepsis type: sepsis due to unspecified organism Qualified Code(s): A41.9 - Sepsis, unspecified organism (2) Acute gallstone pancreatitis Code(s): K85.10 - BILIARY ACUTE PANCREATITIS WITHOUT NECROSIS OR INFECTION Status: Acute (3) Cholecystitis Code(s): K81.9 - CHOLECYSTITIS, UNSPECIFIED Status: Acute (4) Choledocholithiasis Code(s): K80.50 - CALCULUS OF BILE DUCT W/O CHOLANGITIS OR CHOLECYST W/O OBST Status: Acute (5) Cholelithiases Code(s): K80.20 - CALCULUS OF GALLBLADDER W/O CHOLECYSTITIS W/O OBSTRUCTION Status: Acute QualifierTitle: Cholelithiasis location: gallbladder and bile duct Cholecystitis presence: with cholecystitis Cholecystitis acuity: acute Biliary obstruction: with biliary obstruction Qualified Code(s): K80.63 - Calculus of gallbladder and bile duct with acute cholecystitis with obstruction (6) Invasive ductal carcinoma of breast Code(s): C50.919 - MALIGNANT NEOPLASM OF UNSP SITE OF UNSPECIFIED FEMALE BREAST Status: Acute QualifierTitle: Laterality: left Qualified Code(s): C50.912 - Malignant neoplasm of unspecified site of left female breast - Plan Plan: 31 yo f with a pmhx of invasive L ductal carcinoma on chemo and recent delivery via csection ~1 mo ago, presents with n/v, admitted for gallstone pancreatitis and cholecystitis, now s/p ERCP with removal of 3 stones, pending cholecystectomy. 1.)Sepsis 2/2 Gallstone Pancreatitis and cholecystitis, improved. -S/p ERCP with removal of 3 stones in the common bile duct. It appears that the cystic duct is also obstructed. Will continue to follow gen surg and GI recs. Continue pain regimen of morphine 4mg q2h prn and 2mg q2hrs for breakthrough and zosyn for empiric treatment. Was tolerating full liquid diet, but NPO now pending surgery. -Zosyn day 8 2.)Cholecystitis-Liver enzymes uptrending. WBC increased this am. Afebrile for > 24 hours. Zosyn is on empirically. Obstructed cystic duct as well. Continue to follow gen surg recs. Anticipate surgery today -Zosyn day 8 -Morphine for pain -NPO pending lap edy likely today pending Dr. Davies recs 3). Anemia, normocytic. -H/H improved -Could be 2/2 dilutional vs chronic disease. B12 and folate were WNL. Ferritin elevated likely reactive. Iron and TIBC low 4.)Gallstone Pancreatitis -s/p ERCP with removal of 3 stones in the common bile duct. Lipase downtrending. Pain improved. Will continue to follow GI and Gen surg recs. -Patient tolerated full liquid diet, but is now NPO pending surgery. Will advance diet as tolerated after lap edy 5.)Choledocolithiasis- now s/p ERCP with removal of three stones (5-6mm each) from the common bile duct. However based on the ERCP images, it appears that the cystic duct is also obstructed. 6.) Hyperchloremia,resolved. 7.)Invasive ductal carcinoma on chemo-Dr. Myers is following. -Patient is due for next chemo treatment on Tuesday, but per Onc, this will be postponed until after patient has recovered from this acute illness. Will follow Onc recs. 8.)Constipation-We will continue the bowel regimen of colace and senna dispo: Lap edy likely today vs tomorrow pending Dr. Davies recs. <Samantha Gaston - Last Filed: 04/04/17 09:06> Attending Addendum - Attending Addendum Date/Time: 04/05/17 1510 I personally evaluated the patient and discussed the management with Dr. Gaston. I agree with the History, Examination, Assessment and Plan documented above with any addition or exceptions noted below. Pt. seen in PACU post-op exploratory laparoscopy by Samson, who elected to not perform edy in light of active inflammation and evidence of pancreatic ascites. Pt. reports pain controlled currently. No N/V. Continue post-op pancreatitis supportive care. ?TPN? <Rober Velásquez - Last Filed: 04/05/17 15:13>
[2017-04-04] MEDS ORDERED: Bupivacaine HCl 0.5%/Epinephrine 1:200,000/PF 30 ml Vial ONE (12:26)
[2017-04-04] MEDS ORDERED: CEFAZOLIN/Water 2 GM/20 ML SYRINGE ONE (12:37)
[2017-04-04] MEDS ORDERED: Fentanyl 100 MCG/2 ML VIAL ONE ×2 (12:47→13:44)
[2017-04-04] MEDS ORDERED: Ondansetron HCl/PF 4 MG/2 ML Vial IVP PRN ×2 (13:41→16:06)
[2017-04-04] MEDS ORDERED: Promethazine HCl 25 MG/ML VIAL IM PRN ×2 (13:41→16:06)
[2017-04-04] MEDS ORDERED: Promethazine HCl 25 MG/ML VIAL SLOW IVP PRN (13:41)
--- NOTE | 2017-04-04 13:41 | OP ---
PREOPERATIVE DIAGNOSIS: Necrotizing pancreatitis, gallstone pancreatitis. POSTOPERATIVE DIAGNOSIS: Necrotizing pancreatitis, gallstone pancreatitis. PROCEDURE: Diagnostic laparoscopy (cholecystectomy not performed given locally inflammatory change a nd extensive fat saponification in the right upper quadrant). INDICATION: The patient is a 31-year-old female who presented with necrotizing pancreatitis . She has slowly improved clinically, although still slightly distended in mild pain. She had ERCP prior to this procedure and stone extraction from her duct. Her lipase and LFTs trended down. DESCRIPTION OF PROCEDURE: Taken to the operating room and placed supine on the table. After general anesthetic was obtained, the abdomen was shaved, prepped and draped in a sterile fashion. Straight incision was made above the umbilicus. Cautery was used to dissect down to and score the fascia. Ab dominal cavity entered bluntly using a Christina clamp. There was ascites in the abdomen. The right upp er quadrant three 5 mm incisions were placed. The patient had extensive fat saponification in the ri ght upper quadrant and the greater omentum. The greater omentum was peeled back to expose just the t op of the gallbladder. There was no obvious acute cholecystitis, but there was extensive fat necrosi s and fat saponification in the area. The fat could not be pulled off the anterior surface of the ga llbladder. The decision was made to abort the procedure. All port sites were infiltrated using loca l anesthetic. All ports were removed under camera visualization. Pneumoperitoneum was let down. PD S was used to close the fascial defect above the umbilicus. All incisions were irrigated and closed using 4-0 Monocryl and Dermabond. The patient will need staged cholecystectomy, likely in 6-8 weeks.
[2017-04-04] MEDS ORDERED: Glycopyrrolate 0.2 MG/ML 5 ML SYRINGE ONE (13:44)
[2017-04-04] MEDS ORDERED: Dexamethasone 20 MG/5 ML VIAL ONE (13:44)
[2017-04-04] MEDS ORDERED: Propofol 200 MG/20 ML VIAL ONE (13:44)
[2017-04-04] MEDS ORDERED: Ondansetron HCl/PF 4 MG/2 ML Vial ONE (13:44)
[2017-04-04] MEDS ORDERED: Ketorolac Tromethamine 30 MG/ML VIAL ONE (13:44)
[2017-04-04] MEDS ORDERED: Lidocaine 1% PF 5 ML VIAL ONE (13:44)
[2017-04-04] MEDS ORDERED: HYDROcodone/Acetaminophen 10/325 mg Tablet PO PRN ×2 (15:05)
[2017-04-04] MEDS ORDERED: Fentanyl 5000 MCG/250 ML CADD IVPB PRN (16:06)
[2017-04-04] MEDS ORDERED: diphenhydrAMINE 50 MG/ML VIAL IM PRN (16:06)
[2017-04-04] MEDS ORDERED: Naloxone HCl 0.4 mg/ml Vial IV PRN (16:06)
[2017-04-04] MEDS ORDERED: diphenhydrAMINE 50 MG/ML VIAL IVP PRN (16:06)
[2017-04-04] MEDS ORDERED: diphenhydrAMINE 25 MG CAP PO PRN (16:06)
[2017-04-04] MEDS ORDERED: Zolpidem Tartrate 5 MG TAB PO PRN (16:06)
[2017-04-04] MEDS ORDERED: fentaNYL Citrate/PF 2,000 MCG in Sodium Chloride 0.9% 60 ML IV PRN (16:15)
[2017-04-04] MEDS ORDERED: Communication Order-Pharmacy FS SCH (16:15)
[2017-04-04 17:44] LABS: ALT (SGPT) 109 U/L (8-55); AST (SGOT) 67 U/L (5-34); Albumin 2.9 g/dL (3.5-5.0); Alkaline Phosphatase 111 U/L (40-150); Anion Gap 13 mmol/L (10-20); BUN (Urea Nitrogen) 5 mg/dL (7.0-18.7); Bilirubin, Total 0.4 mg/dL (0.2-1.2); Calc. Creatinine Clearance 235 mL/min (70-130); Calcium 8.3 mg/dL (7.8-10.44); Carbon Dioxide 23 mmol/L (22-29); Chloride 106 mmol/L (98-107); Estimated GFR-MDRD Greater than 90; Globulin 3.1 g/dL (2.4-3.5); Glucose 119 mg/dL (70-105); Sodium 138 mmol/L (136-145)
[2017-04-05] MEDS: Piperacillin/Tazobactam 3.375 GM in Sodium Chloride 0.9% 100 ML IVPB SCH (03:20)
[2017-04-05 04:42] LABS: #Lymphocytes 1.2 thou/uL (1.20-3.40); #Monocytes 0.6 thou/uL (0.11-0.59); #Neutrophils 12.3 thou/uL (1.40-6.50); %Basophils 0.1 % (0.0-1.0); %Eosinophils 0.3 % (0.0-10.0); %Lymphocytes 8.6 % (21.0-51.0); %Monocytes 4.1 % (0.0-10.0); Hemoglobin 10.5 g/dL (12.0-16.0); Mean Corpuscular HGB CONC 31.2 g/dL (32.0-36.0); Mean Corpuscular Hemoglobin 27.7 pg (27.0-31.0); Mean Corpuscular Volume 88.7 fl (81.0-99.0); Platelet Count 483 thou/uL (130-400); RBC Distribution Width 13.4 % (11.5-14.5); Red Blood Cell (RBC) Count 3.81 mill/uL (4.20-5.40); White Blood Cell (WBC) Count 14.2 thou/uL (4.8-10.8)
[2017-04-05 05:07] LABS: ALT (SGPT) 92 U/L (8-55); AST (SGOT) 61 U/L (5-34); Albumin 2.9 g/dL (3.5-5.0); Alkaline Phosphatase 110 U/L (40-150); Anion Gap 13 mmol/L (10-20); BUN (Urea Nitrogen) 6 mg/dL (7.0-18.7); Bilirubin, Total 0.4 mg/dL (0.2-1.2); Calc. Creatinine Clearance 188 mL/min (70-130); Calcium 8.3 mg/dL (7.8-10.44); Carbon Dioxide 26 mmol/L (22-29); Chloride 105 mmol/L (98-107); Estimated GFR-MDRD Greater than 90; Glucose 168 mg/dL (70-105); Magnesium 2.3 mg/dL (1.6-2.6); Potassium 4.1 mmol/L (3.5-5.1); Protein, Total 5.9 g/dL (6.0-8.3); Sodium 140 mmol/L (136-145)
--- NOTE | 2017-04-05 08:33 | PDOC.GSPN ---
Surgery Progress Note: Subj - Subjective Patient reports: no new complaints, tolerating liquids well Surgery Progress Note: Obj - Vital signs Vital signs: Vital Signs - Most Recent Temp Pulse Resp BP Pulse Ox 98.5 F 65 20 104/71 94 L 04/05/17 03:56 04/05/17 03:56 04/05/17 03:56 04/05/17 03:56 04/05/17 03:56 - Physical Exam General: no distress Cardiovascular: regular rate and rhythm Respiratory: clear to auscultation Abdomen: soft, appropriately tender Wound: healing well Surgery Progress Note: Results - Labs Result Diagrams: 04/05/17 03:49 04/05/17 03:49 Lab results: Laboratory Results - last 24 hr 04/05/17 04/05/17 03:49 03:49 WBC 14.2 H RBC 3.81 L Hgb 10.5 L Hct 33.8 L MCV 88.7 MCH 27.7 MCHC 31.2 L RDW 13.4 Plt Count 483 H MPV 8.0 Neutrophils % 87.0 H Lymphocytes % 8.6 L Monocytes % 4.1 Eosinophils % 0.3 Basophils % 0.1 Neutrophils # 12.3 H Lymphocytes # 1.2 Monocytes # 0.6 H Eosinophils # 0.0 Basophils # 0.0 Sodium 140 Potassium 4.1 Chloride 105 Carbon Dioxide 26 Anion Gap 13 BUN 6 L Creatinine 0.60 Estimated GFR (MDRD) Greater than 90 Glucose 168 H Calcium 8.3 Magnesium 2.3 Total Bilirubin 0.4 AST 61 H ALT 92 H Alkaline Phosphatase 110 Serum Total Protein 5.9 L Albumin 2.9 L Globulin 3.0 Albumin/Globulin Ratio 1.0 L Surgery Progress Note: A/P - Problem (1) Gallstone pancreatitis Current Visit: Yes Code(s): K85.10 - BILIARY ACUTE PANCREATITIS WITHOUT NECROSIS OR INFECTION Status: Acute Assessment and Plan: Attempted edy yesterday. Significant persistent inflammatory change. Plan would be lap edy in 2 months. If tolerated full liquids today, advance diet tomorrow. Probable home Tuesday (2) Hypovolemic shock Current Visit: Yes Code(s): R57.1 - HYPOVOLEMIC SHOCK Status: Acute
[2017-04-05] MEDS: Sodium Chloride 0.45% 1,000 ML IV SCH ×2 (08:51→17:15)
[2017-04-05] MEDS: Pantoprazole 40 MG VIAL IVP SCH (08:52)
[2017-04-05] MEDS: Enoxaparin Sodium 40 MG/0.4 ML SYRINGE SC SCH (08:52)
--- NOTE | 2017-04-05 09:23 | PDOC.FM ---
- Subjective Subjective: Patient doing well this AM. Her pain has improved. She reports pain at the incision sites, but that the general abdominal pain is only 2/10 this AM. She reports that she is tolerating full liquid diet well. Denies N/V/D. Denies F/C, CP/SOB. - Objective MAR Reviewed: Yes Vital Signs & Weight: Vital Signs (12 hours) Temp Pulse Resp BP Pulse Ox 04/05/17 08:10 64 18 104/70 96 04/05/17 03:56 98.5 F 65 20 104/71 94 L 04/05/17 00:00 97.8 F 64 20 111/73 94 L Weight Weight 87.543 kg Most Recent Monitor Data Heart Rate from ECG 90 NIBP 125/70 NIBP BP-Mean 84 Respiration from ECG 27 SpO2 100 I&O: 04/04/17 04/05/17 04/06/17 06:59 06:59 06:59 Intake Total 5650 2550 Output Total 4600 500 Balance 1050 2049 Result Diagrams: 04/05/17 03:49 04/05/17 03:49 <Samantha Gaston - Last Filed: 04/05/17 09:22> - Objective Vital Signs & Weight: Vital Signs (12 hours) Temp Pulse Resp BP Pulse Ox 04/05/17 08:10 64 18 104/70 96 04/05/17 03:56 98.5 F 65 20 104/71 94 L 04/05/17 00:00 97.8 F 64 20 111/73 94 L Weight Weight 87.543 kg Most Recent Monitor Data Heart Rate from ECG 90 NIBP 125/70 NIBP BP-Mean 84 Respiration from ECG 27 SpO2 100 I&O: 04/04/17 04/05/17 04/06/17 06:59 06:59 06:59 Intake Total 5650 2550 Output Total 4600 500 Balance 1050 2050 Result Diagrams: 04/05/17 03:49 04/05/17 03:49 <Tee Arzate - Last Filed: 04/05/17 11:02> - Objective Vital Signs & Weight: Vital Signs (12 hours) Temp Pulse Resp BP Pulse Ox 04/05/17 11:40 98.0 F 70 18 123/76 96 04/05/17 08:10 64 18 104/70 96 04/05/17 03:56 98.5 F 65 20 104/71 94 L Weight Weight 87.543 kg Most Recent Monitor Data Heart Rate from ECG 90 NIBP 125/70 NIBP BP-Mean 84 Respiration from ECG 27 SpO2 100 I&O: 04/04/17 04/05/17 04/06/17 06:59 06:59 06:59 Intake Total 5650 2550 Output Total 4600 500 Balance 1050 2050 Result Diagrams: 04/05/17 03:49 04/05/17 03:49 <Shannan Foley - Last Filed: 04/05/17 14:40> Phys Exam - Physical Examination Constitutional: NAD HEENT: moist MMs Respiratory: no wheezing, no rales, no rhonchi, clear to auscultation bilateral Cardiovascular: RRR, no significant murmur Gastrointestinal: soft, no distention, positive bowel sounds appropriately tender to palpation Musculoskeletal: no edema, pulses present Neurological: non-focal, moves all 4 limbs Psychiatric: normal affect, A&O x 3 Deviation from normal: incisions c/d/i, dermabond in place <Samantha Gaston - Last Filed: 04/05/17 09:22> Dx/Plan (1) Sepsis Code(s): A41.9 - SEPSIS, UNSPECIFIED ORGANISM Status: Acute QualifierTitle: Sepsis type: sepsis due to unspecified organism Qualified Code(s): A41.9 - Sepsis, unspecified organism (2) Acute gallstone pancreatitis Code(s): K85.10 - BILIARY ACUTE PANCREATITIS WITHOUT NECROSIS OR INFECTION Status: Acute (3) Cholecystitis Code(s): K81.9 - CHOLECYSTITIS, UNSPECIFIED Status: Acute (4) Choledocholithiasis Code(s): K80.50 - CALCULUS OF BILE DUCT W/O CHOLANGITIS OR CHOLECYST W/O OBST Status: Acute (5) Cholelithiases Code(s): K80.20 - CALCULUS OF GALLBLADDER W/O CHOLECYSTITIS W/O OBSTRUCTION Status: Acute QualifierTitle: Cholelithiasis location: gallbladder and bile duct Cholecystitis presence: with cholecystitis Cholecystitis acuity: acute Biliary obstruction: with biliary obstruction Qualified Code(s): K80.63 - Calculus of gallbladder and bile duct with acute cholecystitis with obstruction (6) Invasive ductal carcinoma of breast Code(s): C50.919 - MALIGNANT NEOPLASM OF UNSP SITE OF UNSPECIFIED FEMALE BREAST Status: Acute QualifierTitle: Laterality: left Qualified Code(s): C50.912 - Malignant neoplasm of unspecified site of left female breast - Plan Plan: 31 yo f with a PMHx of invasive L ductal carcinoma on chemo and recent delivery via csection ~1 mo ago, presents with n/v, admitted for gallstone pancreatitis and cholecystitis, now s/p ERCP with removal of 3 stones. 1.)Sepsis 2/2 Gallstone Pancreatitis and cholecystitis, improved. -S/p ERCP with removal of 3 stones in the common bile duct. It appears that the cystic duct is also obstructed. Will continue to follow gen surg and GI recs. -s/p Diagnostic laparoscopy on 04/04 that was intended for cholecystectomy, but the patient had too much inflammatory change at the time. The plan is now for lap edy in 6-8 weeks -Zosyn day 9 -ADAT -WIRE HARNESS DESIGN ENGINEER for pain control -Gen surg and GI on board, appreciate recs 2.)Cholecystitis-Liver enzymes uptrending. WBC increased this am. Afebrile for > 24 hours. Zosyn is on empirically. Obstructed cystic duct as well. Continue to follow gen surg recs. Anticipate surgery in 6-8 weeks. -Zosyn day 9 -WIRE HARNESS DESIGN ENGINEER for pain -Full liquid diet, advance tomorrow if patient tolerates well 3). Anemia, normocytic. -H/H improved -Could be 2/2 dilutional vs chronic disease. B12 and folate were WNL. Ferritin elevated likely reactive. Iron and TIBC low 4.)Gallstone Pancreatitis -s/p ERCP with removal of 3 stones in the common bile duct. Lipase downtrending. Pain improved. Will continue to follow GI and Gen surg recs. -Patient tolerated full liquid diet, advance tomorrow 5.)Choledocolithiasis- now s/p ERCP with removal of three stones (5-6mm each) from the common bile duct. However based on the ERCP images, it appears that the cystic duct is also obstructed. 6.) Hyperchloremia,resolved. 7.)Invasive ductal carcinoma on chemo-Dr. Myers is following. -Patient is due for next chemo treatment on Tuesday, but per Onc, this will be postponed until after patient has recovered from this acute illness. Will follow Onc recs. 8.)Constipation-We will continue the bowel regimen of colace and senna dispo: D/C likely Tuesday with return for lap edy in 6-8 weeks <Samantha Gaston - Last Filed: 04/05/17 09:22> - Plan Plan: I personally evaluated patient and discussed the case with Dr. Gaston. I agree with her exam, assessment, and plan with the exceptions as listed below. 1) Necrotizing pancreatitis 2/2 gallstone pancreatitis - Continue bowel rest, WIRE HARNESS DESIGN ENGINEER for pain management, and advanced diet as tolerated. Appreciate GI and surgery recs 2) Cholecystitis - Surgery following. Surgery planned for 6-8 weeks. <Tee Arzate - Last Filed: 04/05/17 11:02> Attending Addendum - Attending Addendum Date/Time: 04/05/17 5824 I personally evaluated the patient and discussed the management with Dr. Gaston on 04/05/17. I agree with the History, Examination, Assessment and Plan documented above with any addition or exceptions noted below. Patient with gallstone pancreatitis during chemo for breast cancer. Will defer chemo until acute illness is resolved. Lap edy attempted yesterady but unable to perform due to saponification in the RUQ/epigastric area. Will need to be deferred for 6-8 weeks. Her pain is somewhat improved today on WIRE HARNESS DESIGN ENGINEER pump, is ambulating. Will advance diet very slowly. <Shannan Foley - Last Filed: 04/05/17 14:40>
[2017-04-06 05:03] LABS: #Eosinphils 0.3 thou/uL (0.0-0.7); #Lymphocytes 2.1 thou/uL (1.20-3.40); #Neutrophils 8.2 thou/uL (1.40-6.50); %Basophils 0.1 % (0.0-1.0); %Eosinophils 2.8 % (0.0-10.0); %Lymphocytes 18.2 % (21.0-51.0); %Monocytes 8.5 % (0.0-10.0); %Neutrophils 70.4 % (42.0-75.0); Hemoglobin 10.6 g/dL (12.0-16.0); Mean Corpuscular HGB CONC 33.2 g/dL (32.0-36.0); Mean Corpuscular Hemoglobin 29.4 pg (27.0-31.0); Mean Corpuscular Volume 88.4 fl (81.0-99.0); Mean Platelet Volume 7.5 fL (7.4-10.4); Platelet Count 527 thou/uL (130-400); RBC Distribution Width 13.5 % (11.5-14.5); Red Blood Cell (RBC) Count 3.63 mill/uL (4.20-5.40); White Blood Cell (WBC) Count 11.7 thou/uL (4.8-10.8)
[2017-04-06 05:12] LABS: ALT (SGPT) 75 U/L (8-55); AST (SGOT) 41 U/L (5-34); Albumin 2.9 g/dL (3.5-5.0); Alkaline Phosphatase 91 U/L (40-150); Anion Gap 11 mmol/L (10-20); BUN (Urea Nitrogen) 5 mg/dL (7.0-18.7); Bilirubin, Total 0.3 mg/dL (0.2-1.2); Calc. Creatinine Clearance 209 mL/min (70-130); Calcium 8.3 mg/dL (7.8-10.44); Carbon Dioxide 23 mmol/L (22-29); Chloride 108 mmol/L (98-107); Estimated GFR-MDRD Greater than 90; Globulin 2.6 g/dL (2.4-3.5); Glucose 96 mg/dL (70-105); Magnesium 2.1 mg/dL (1.6-2.6); Potassium 4.1 mmol/L (3.5-5.1); Protein, Total 5.5 g/dL (6.0-8.3); Sodium 138 mmol/L (136-145)
[2017-04-06] MEDS: Sodium Chloride 0.45% 1,000 ML IV SCH (05:44)
[2017-04-06] MEDS ORDERED: Sodium Chloride 0.45% 1,000 ML IV SCH (08:14)
--- NOTE | 2017-04-06 08:15 | PDOC.GSPN ---
Surgery Progress Note: Subj - Subjective Narrative: Having occasional pain, no nausea Surgery Progress Note: Obj - Vital signs Vital signs: Vital Signs - Most Recent Temp Pulse Resp BP Pulse Ox 98.3 F 71 18 108/68 96 04/06/17 03:39 04/06/17 03:39 04/06/17 03:39 04/06/17 03:39 04/06/17 03:39 - Physical Exam General: no distress Cardiovascular: regular rate and rhythm Respiratory: clear to auscultation Abdomen: soft, appropriately tender, distended Surgery Progress Note: Results - Labs Result Diagrams: 04/06/17 04:39 04/06/17 04:39 Lab results: Laboratory Results - last 24 hr 04/06/17 04/06/17 04:39 04:39 WBC 11.7 H RBC 3.63 L Hgb 10.6 L Hct 32.1 L MCV 88.4 MCH 29.4 MCHC 33.2 RDW 13.5 Plt Count 527 H MPV 7.5 Neutrophils % 70.4 Lymphocytes % 18.2 L Monocytes % 8.5 Eosinophils % 2.8 Basophils % 0.1 Neutrophils # 8.2 H Lymphocytes # 2.1 Monocytes # 1.0 H Eosinophils # 0.3 Basophils # 0.0 Sodium 138 Potassium 4.1 Chloride 108 H Carbon Dioxide 23 Anion Gap 11 BUN 5 L Creatinine 0.54 L Estimated GFR (MDRD) Greater than 90 Glucose 96 Calcium 8.3 Magnesium 2.1 Total Bilirubin 0.3 AST 41 H ALT 75 H Alkaline Phosphatase 91 Serum Total Protein 5.5 L Albumin 2.9 L Globulin 2.6 Albumin/Globulin Ratio 1.1 L Surgery Progress Note: A/P - Problem (1) Gallstone pancreatitis Current Visit: Yes Code(s): K85.10 - BILIARY ACUTE PANCREATITIS WITHOUT NECROSIS OR INFECTION Status: Acute Assessment and Plan: Try to advance to low fat diet. (2) Hypovolemic shock Current Visit: Yes Code(s): R57.1 - HYPOVOLEMIC SHOCK Status: Acute
[2017-04-06] MEDS: Enoxaparin Sodium 40 MG/0.4 ML SYRINGE SC SCH (08:52)
[2017-04-06] MEDS: Pantoprazole 40 MG VIAL IVP SCH (08:52)
--- NOTE | 2017-04-06 09:22 | PDOC.FM ---
- Subjective Subjective: Patient doing well this AM. She denies F/C, N/V/D. She reports some occasional pain that is worse at the incision sites. She tolerated full liquid diet yesterday. - Objective MAR Reviewed: Yes Vital Signs & Weight: Vital Signs (12 hours) Temp Pulse Resp BP BP Pulse Ox 04/06/17 07:25 98.0 F 86 16 119/80 91 L 04/06/17 03:39 98.3 F 71 18 108/68 96 04/06/17 00:00 98.4 F 67 16 111/72 97 Weight Weight 87.543 kg Most Recent Monitor Data Heart Rate from ECG 90 NIBP 125/70 NIBP BP-Mean 84 Respiration from ECG 27 SpO2 100 I&O: 04/05/17 04/06/17 04/07/17 06:59 06:59 06:59 Intake Total 2550 3250 Output Total 500 Balance 2050 3250 Result Diagrams: 04/06/17 04:39 04/06/17 04:39 Phys Exam - Physical Examination Constitutional: NAD HEENT: moist MMs Respiratory: no wheezing, no rales, no rhonchi, clear to auscultation bilateral Cardiovascular: RRR, no significant murmur, no rub Gastrointestinal: soft, no distention, positive bowel sounds mildly tender to palpation Musculoskeletal: no edema, pulses present Neurological: non-focal, moves all 4 limbs Psychiatric: normal affect, A&O x 3 Skin: normal turgor, cap refill <2 seconds Dx/Plan (1) Sepsis Code(s): A41.9 - SEPSIS, UNSPECIFIED ORGANISM Status: Acute Qualifiers: Sepsis type: sepsis due to unspecified organism Qualified Code(s): A41.9 - Sepsis, unspecified organism (2) Acute gallstone pancreatitis Code(s): K85.10 - BILIARY ACUTE PANCREATITIS WITHOUT NECROSIS OR INFECTION Status: Acute (3) Cholecystitis Code(s): K81.9 - CHOLECYSTITIS, UNSPECIFIED Status: Acute (4) Choledocholithiasis Code(s): K80.50 - CALCULUS OF BILE DUCT W/O CHOLANGITIS OR CHOLECYST W/O OBST Status: Acute (5) Cholelithiases Code(s): K80.20 - CALCULUS OF GALLBLADDER W/O CHOLECYSTITIS W/O OBSTRUCTION Status: Acute Qualifiers: Cholelithiasis location: gallbladder and bile duct Cholecystitis presence: with cholecystitis Cholecystitis acuity: acute Biliary obstruction: with biliary obstruction Qualified Code(s): K80.63 - Calculus of gallbladder and bile duct with acute cholecystitis with obstruction (6) Invasive ductal carcinoma of breast Code(s): C50.919 - MALIGNANT NEOPLASM OF UNSP SITE OF UNSPECIFIED FEMALE BREAST Status: Acute Qualifiers: Laterality: left Qualified Code(s): C50.912 - Malignant neoplasm of unspecified site of left female breast - Plan Plan: 31 yo f with a PMHx of invasive L ductal carcinoma on chemo and recent delivery via csection ~1 mo ago, presents with n/v, admitted for gallstone pancreatitis and cholecystitis, now s/p ERCP with removal of 3 stones. 1.)Sepsis 2/2 Gallstone Pancreatitis and cholecystitis, improved. -S/p ERCP with removal of 3 stones in the common bile duct. It appears that the cystic duct is also obstructed. Will continue to follow gen surg and GI recs. -s/p Diagnostic laparoscopy on 04/04 that was intended for cholecystectomy, but the patient had too much inflammatory change at the time. The plan is now for lap edy in 6-8 weeks -Zosyn day 10 -Advance diet to low fat -SCREEN MAKING TECHNICIAN for pain control -Gen surg and GI on board, appreciate recs 2.)Cholecystitis-Liver enzymes uptrending. WBC increased this am. Afebrile for > 24 hours. Zosyn is on empirically. Obstructed cystic duct as well. Continue to follow gen surg recs. Anticipate surgery in 6-8 weeks. -Zosyn day 10 -SCREEN MAKING TECHNICIAN for pain -Advance diet to low fat 3). Anemia, normocytic. -H/H improved -Could be 2/2 dilutional vs chronic disease. B12 and folate were WNL. Ferritin elevated likely reactive. Iron and TIBC low 4.)Gallstone Pancreatitis -s/p ERCP with removal of 3 stones in the common bile duct. Lipase downtrending. Pain improved. Will continue to follow GI and Gen surg recs. -Advance diet to low fat 5.)Choledocolithiasis- now s/p ERCP with removal of three stones (5-6mm each) from the common bile duct. However based on the ERCP images, it appears that the cystic duct is also obstructed. 6.) Hyperchloremia,resolved. 7.)Invasive ductal carcinoma on chemo-Dr. Myers is following. -Patient missed her chemo treatment on 04/05, but per Onc, this will be postponed until after patient has recovered from this acute illness. Will follow Onc recs. 8.)Constipation-We will continue the bowel regimen of colace and senna dispo: D/C likely Tuesday with return for lap edy in 6-8 weeks
[2017-04-06] MEDS: HYDROcodone/Acetaminophen 5/325 mg Tablet PO PRN ×2 (17:12→21:30)
[2017-04-07] MEDS: HYDROcodone/Acetaminophen 5/325 mg Tablet PO PRN ×4 (02:15→20:45)
[2017-04-07 05:53] LABS: #Eosinphils 0.3 thou/uL (0.0-0.7); #Lymphocytes 1.6 thou/uL (1.20-3.40); #Monocytes 1.1 thou/uL (0.11-0.59); #Neutrophils 11.6 thou/uL (1.40-6.50); %Eosinophils 2.1 % (0.0-10.0); %Lymphocytes 11.1 % (21.0-51.0); %Monocytes 7.2 % (0.0-10.0); %Neutrophils 79.5 % (42.0-75.0); Hemoglobin 11.1 g/dL (12.0-16.0); Mean Corpuscular HGB CONC 32.5 g/dL (32.0-36.0); Mean Corpuscular Hemoglobin 28.6 pg (27.0-31.0); Mean Corpuscular Volume 87.9 fl (81.0-99.0); Mean Platelet Volume 7.5 fL (7.4-10.4); Platelet Count 617 thou/uL (130-400); RBC Distribution Width 13.8 % (11.5-14.5); Red Blood Cell (RBC) Count 3.88 mill/uL (4.20-5.40); White Blood Cell (WBC) Count 14.6 thou/uL (4.8-10.8)
[2017-04-07 06:18] LABS: ALT (SGPT) 55 U/L (8-55); AST (SGOT) 24 U/L (5-34); Albumin 3.2 g/dL (3.5-5.0); Alkaline Phosphatase 104 U/L (40-150); Anion Gap 14 mmol/L (10-20); BUN (Urea Nitrogen) 4 mg/dL (7.0-18.7); Bilirubin, Total 0.4 mg/dL (0.2-1.2); Calc. Creatinine Clearance 188 mL/min (70-130); Calcium 8.6 mg/dL (7.8-10.44); Carbon Dioxide 23 mmol/L (22-29); Chloride 106 mmol/L (98-107); Estimated GFR-MDRD Greater than 90; Globulin 3.1 g/dL (2.4-3.5); Glucose 96 mg/dL (70-105); Magnesium 2.4 mg/dL (1.6-2.6); Protein, Total 6.3 g/dL (6.0-8.3); Sodium 139 mmol/L (136-145)
[2017-04-07] MEDS: Pantoprazole 40 MG VIAL IVP SCH (07:58)
[2017-04-07] MEDS: Enoxaparin Sodium 40 MG/0.4 ML SYRINGE SC SCH (07:58)
--- NOTE | 2017-04-07 08:16 | PDOC.FM ---
- Subjective Subjective: Patient reports continued abdominal pain that is worse after eating. She was able to eat without any nausea. She reports that the PO pain medication did not help with the pain. She reports a few soft stools yesterday morning, but has not had any BM's since then. - Objective MAR Reviewed: Yes Vital Signs & Weight: Vital Signs (12 hours) Temp Pulse Resp BP Pulse Ox 04/07/17 07:50 99.1 F 87 14 113/74 94 L 04/07/17 04:00 97.6 F 76 14 100/75 94 L 04/07/17 00:00 98.7 F 92 16 110/72 92 L Weight Weight 87.543 kg Most Recent Monitor Data Heart Rate from ECG 90 NIBP 125/70 NIBP BP-Mean 84 Respiration from ECG 27 SpO2 100 I&O: 04/06/17 04/07/17 04/08/17 06:59 06:59 06:59 Intake Total 3250 1550 Balance 3250 1550 Result Diagrams: 04/07/17 04:15 04/07/17 04:15 <Samantha Gaston - Last Filed: 04/07/17 08:13> - Objective Vital Signs & Weight: Vital Signs (12 hours) Temp Pulse Resp BP Pulse Ox 04/07/17 11:22 98.0 F 80 14 109/63 96 04/07/17 08:00 99.1 F 87 14 94 L 04/07/17 07:50 99.1 F 87 14 113/74 94 L 04/07/17 04:00 97.6 F 76 14 100/75 94 L Weight Admit Weight 78.245 kg Weight 87.543 kg Most Recent Monitor Data Heart Rate from ECG 90 NIBP 125/70 NIBP BP-Mean 84 Respiration from ECG 27 SpO2 100 I&O: 04/06/17 04/07/17 04/08/17 06:59 06:59 06:59 Intake Total 3250 1550 Balance 3250 1550 Result Diagrams: 04/07/17 04:15 04/07/17 04:15 <Shannan Foley - Last Filed: 04/07/17 12:27> Phys Exam - Physical Examination Constitutional: NAD HEENT: moist MMs Respiratory: no wheezing, no rales, no rhonchi, clear to auscultation bilateral Cardiovascular: RRR, no significant murmur, no rub Gastrointestinal: soft, no distention, positive bowel sounds tender to palpation diffusely, worse in RUQ and JEN regions Musculoskeletal: no edema, pulses present Neurological: non-focal, moves all 4 limbs Psychiatric: normal affect, A&O x 3 Skin: normal turgor Deviation from normal: incisions c/d/i <Samantha Gaston - Last Filed: 04/07/17 08:13> Dx/Plan (1) Sepsis Code(s): A41.9 - SEPSIS, UNSPECIFIED ORGANISM Status: Acute QualifierTitle: Sepsis type: sepsis due to unspecified organism Qualified Code(s): A41.9 - Sepsis, unspecified organism (2) Acute gallstone pancreatitis Code(s): K85.10 - BILIARY ACUTE PANCREATITIS WITHOUT NECROSIS OR INFECTION Status: Acute (3) Cholecystitis Code(s): K81.9 - CHOLECYSTITIS, UNSPECIFIED Status: Acute (4) Choledocholithiasis Code(s): K80.50 - CALCULUS OF BILE DUCT W/O CHOLANGITIS OR CHOLECYST W/O OBST Status: Acute (5) Cholelithiases Code(s): K80.20 - CALCULUS OF GALLBLADDER W/O CHOLECYSTITIS W/O OBSTRUCTION Status: Acute QualifierTitle: Cholelithiasis location: gallbladder and bile duct Cholecystitis presence: with cholecystitis Cholecystitis acuity: acute Biliary obstruction: with biliary obstruction Qualified Code(s): K80.63 - Calculus of gallbladder and bile duct with acute cholecystitis with obstruction (6) Invasive ductal carcinoma of breast Code(s): C50.919 - MALIGNANT NEOPLASM OF UNSP SITE OF UNSPECIFIED FEMALE BREAST Status: Acute QualifierTitle: Laterality: left Qualified Code(s): C50.912 - Malignant neoplasm of unspecified site of left female breast - Plan Plan: 31 yo f with a PMHx of invasive L ductal carcinoma on chemo and recent delivery via csection ~1 mo ago, presents with n/v, admitted for gallstone pancreatitis and cholecystitis, now s/p ERCP with removal of 3 stones. 1. Sepsis 2/2 Gallstone Pancreatitis and cholecystitis Improved -S/p ERCP with removal of 3 stones in the common bile duct. It appears that the cystic duct is also obstructed. Will continue to follow gen surg and GI recs. -s/p Diagnostic laparoscopy on 04/04 that was intended for cholecystectomy, but the patient had too much inflammatory change at the time. The plan is now for lap edy in 6-8 weeks -Zosyn day 11 -Continue low fat diet -MEDICAL COMMUNICATION SPECIALIST was d/c'd, will continue norco for pain. Increased regimen to try for better pain control -Gen surg and GI on board, appreciate recs 2. Cholecystitis Liver enzymes uptrending. WBC increased this am. Afebrile for >24 hours. Zosyn is on empirically. Obstructed cystic duct as well. Continue to follow gen surg recs. Anticipate surgery in 6-8 weeks. -Zosyn day 11 -[place] -Low fat diet 3. Anemia, normocytic. -H/H improved -Could be 2/2 dilutional vs chronic disease. B12 and folate were WNL. Ferritin elevated likely reactive. Iron and TIBC low 4. Gallstone Pancreatitis -s/p ERCP with removal of 3 stones in the common bile duct. Lipase downtrending. Pain improved. Will continue to follow GI and Gen surg recs. -Low fat diet 5. Choledocolithiasis Now s/p ERCP with removal of three stones (5-6mm each) from the common bile duct. However based on the ERCP images, it appears that the cystic duct is also obstructed. 6. Hyperchloremia Resolved. 7. Invasive ductal carcinoma on chemo Dr. Myers is following. -Patient missed her chemo treatment on 04/05, but per Onc, this will be postponed until after patient has recovered from this acute illness. Will follow Onc recs. 8. Constipation Patient now having soft stools. Will monitor. dispo: D/C likely Tuesday with return for lap edy in 6-8 weeks <Samantha Gaston - Last Filed: 04/07/17 08:13> Attending Addendum - Attending Addendum Date/Time: 04/07/17 1226 I personally evaluated the patient and discussed the management with Dr. Gaston on 04/07/17. I agree with the History, Examination, Assessment and Plan documented above with any addition or exceptions noted below. After stopping MEDICAL COMMUNICATION SPECIALIST pump and resuming low-fat meals, patient now with worsened, focal epigastric pain. But pain improved during my exam after increasing PO meds. CT abdomen to eval for possible complications of acute pancreatitis. If continues to improve may consider discharge home tomorrow, but will await surgery recs. <Shannan Foley - Last Filed: 04/07/17 12:27>
--- NOTE | 2017-04-07 08:44 | PDOC.GSPN ---
Surgery Progress Note: Subj - Subjective Narrative: Pain worse overnight with regular low fat diet. Pain is diffuse in the abdomen Surgery Progress Note: Obj - Vital signs Vital signs: Vital Signs - Most Recent Temp Pulse Resp BP Pulse Ox 99.1 F 87 14 113/74 94 L 04/07/17 08:00 04/07/17 08:00 04/07/17 08:00 04/07/17 07:50 04/07/17 08:00 - Physical Exam General: no distress Cardiovascular: regular rate and rhythm Respiratory: clear to auscultation Abdomen: soft, distended, tender (diffusely) Surgery Progress Note: Results - Labs Result Diagrams: 04/07/17 04:15 04/07/17 04:15 Lab results: Laboratory Results - last 24 hr 04/07/17 04/07/17 04:15 04:15 WBC 14.6 H RBC 3.88 L Hgb 11.1 L Hct 34.1 L MCV 87.9 MCH 28.6 MCHC 32.5 RDW 13.8 Plt Count 617 H MPV 7.5 Neutrophils % 79.5 H Lymphocytes % 11.1 L Monocytes % 7.2 Eosinophils % 2.1 Basophils % 0.0 Neutrophils # 11.6 H Lymphocytes # 1.6 Monocytes # 1.1 H Eosinophils # 0.3 Basophils # 0.0 Sodium 139 Potassium 4.0 Chloride 106 Carbon Dioxide 23 Anion Gap 14 BUN 4 L Creatinine 0.60 Estimated GFR (MDRD) Greater than 90 Glucose 96 Calcium 8.6 Magnesium 2.4 Total Bilirubin 0.4 AST 24 ALT 55 Alkaline Phosphatase 104 Serum Total Protein 6.3 Albumin 3.2 L Globulin 3.1 Albumin/Globulin Ratio 1.0 L Surgery Progress Note: A/P - Problem (1) Gallstone pancreatitis Current Visit: Yes Code(s): K85.10 - BILIARY ACUTE PANCREATITIS WITHOUT NECROSIS OR INFECTION Status: Acute Assessment and Plan: Severe necrotizing pancreatitis. She is improved but not ready for discharge yet. She struggled with advancement of diet overnight. Probably needs to stay a few more days. I would be willing to take her on my service if FP wants to sign off. (2) Hypovolemic shock Current Visit: Yes Code(s): R57.1 - HYPOVOLEMIC SHOCK Status: Acute
[2017-04-07 11:47] VITALS: BMI 32.1
[2017-04-07] MEDS ORDERED: Iopamidol 370 76% 50 ML VIAL FS ONE (13:22)
[2017-04-07] MEDS ORDERED: Iopamidol 370 76% 100 ML VIAL ONE (13:22)
--- NOTE | 2017-04-07 14:16 | CT ---
CT ABDOMEN AND PELVIS WITH IV CONTRAST: Date: 04-07-17 History: Abdominal pain that radiates to the back with associated nausea and vomiting. Pancreatitis. History of breast cancer, on chemotherapy. Comparison: 02-21-17 FINDINGS: There are small bilateral pleural effusions with bibasilar areas of consolidation likely attributable to passive atelectasis although pneumonia cannot be excluded. The heart is mildly enlarged. A central venous catheter is partially imaged within the SVC extending to the cavoatrial junction. There is a multiloculated hypodense fluid collection seen adjacent to the pancreas. It is difficult t o accurately measure, but the greatest transverse dimension is 19.8 cm with greatest AP dimension of approximately 3.7 mm and craniocaudal dimension of 8.4 cm. The pancreas does appear to enhance normal ly. Minimal adjacent inflammatory changes are identified. The hypodense fluid collection does extend into the left paracolic gutter as well as inferiorly on the right just below the level of the pancrea tic head. There is fluid adjacent to the gallbladder with evidence of periportal edema. The spleen, bilateral adrenal glands, bilateral kidneys, abdominal aorta, urinary bladder and opacifi ed small bowel demonstrate a normal CT appearance. There has been interval decrease in size of the uterus compared to the prior study. Previously noted exophytic mass at the uterine fundus has also diminished in size previously measuring 6.7 cm and now measures 4.2 cm in greatest dimensions. Small enhancing lesion in the body of the uterus, likely rela anshul to an additional mass and findings are likely attributable to uterine fibroids. There are presacral inflammatory changes seen which were also noted on the prior exam. There is a sma ll serpiginous fluid collection with enhancing knight seen in the cul-de-sac which is small in size wi th greatest measurements of 1.4 cm craniocaudal x 1 cm AP x approximately 4.6 cm transverse. This col lection is not percutaneously accessible and is very small in size. There is inflammatory changes seen adjacent to this collection as well. A portion of the collection p robably extends superiorly on the right adjacent to the iliac vessels. The appendix is visualized and normal in caliber with focus of gas seen at the tip of the appendix. IMPRESSION: 1. Bilateral pleural effusions with bibasilar areas of consolidation probably related to atelectasis; although, pneumonia cannot be entirely excluded. 2. Large loculated collection in a peripancreatic location which extends inferior and anterior to the level of the pancreas as well as into the left paracolic gutter, likely related to pseudocyst format ion. There is minimal peripancreatic inflammatory changes seen which may be related an element of deng creatitis. There is pericholecystic fluid seen with periportal edema also identified. There is mild t hickening of the knight of the second and third portion of the duodenum which is probably reactive in origin. 3. Small fluid collection in the cul-de-sac which extends superiorly in the right aspect of the pelvi s which could represent small abscess collection. The multiloculated collection adjacent to the pancr eas is thought to most likely be related to a large pseudocyst formation, although abscess collection cannot be entirely excluded. 4. Inflammatory changes in the pelvis in a presacral location but also seen in a perirectal location extending superiorly. 5. Uterine fibroids. 6. No evidence of lymphadenopathy. 7. Subcutaneous emphysema right anterior abdominal wall likely related to recent injection. 8. Interval decrease in size of uterus and larger uterine fibroid, present on prior study of 02-21-17. POS: [facility]
[2017-04-08] MEDS: HYDROcodone/Acetaminophen 5/325 mg Tablet PO PRN ×2 (04:16→07:54)
[2017-04-08 05:55] LABS: #Eosinphils 0.6 thou/uL (0.0-0.7); #Lymphocytes 1.8 thou/uL (1.20-3.40); #Monocytes 1.3 thou/uL (0.11-0.59); #Neutrophils 12.6 thou/uL (1.40-6.50); %Basophils 0.3 % (0.0-1.0); %Eosinophils 3.8 % (0.0-10.0); %Lymphocytes 10.9 % (21.0-51.0); %Monocytes 7.7 % (0.0-10.0); %Neutrophils 77.4 % (42.0-75.0); Hemoglobin 11.3 g/dL (12.0-16.0); Mean Corpuscular HGB CONC 33.2 g/dL (32.0-36.0); Mean Corpuscular Hemoglobin 28.5 pg (27.0-31.0); Mean Corpuscular Volume 85.9 fl (81.0-99.0); Platelet Count 622 thou/uL (130-400); RBC Distribution Width 13.8 % (11.5-14.5); Red Blood Cell (RBC) Count 3.96 mill/uL (4.20-5.40); White Blood Cell (WBC) Count 16.3 thou/uL (4.8-10.8)
[2017-04-08 06:09] LABS: ALT (SGPT) 43 U/L (8-55); AST (SGOT) 22 U/L (5-34); Albumin 3.3 g/dL (3.5-5.0); Alkaline Phosphatase 104 U/L (40-150); Anion Gap 12 mmol/L (10-20); BUN (Urea Nitrogen) 6 mg/dL (7.0-18.7); Bilirubin, Total 0.4 mg/dL (0.2-1.2); Calc. Creatinine Clearance 179 mL/min (70-130); Calcium 8.7 mg/dL (7.8-10.44); Carbon Dioxide 25 mmol/L (22-29); Chloride 104 mmol/L (98-107); Estimated GFR-MDRD Greater than 90; Globulin 3.2 g/dL (2.4-3.5); Glucose 96 mg/dL (70-105); Magnesium 2.3 mg/dL (1.6-2.6); Protein, Total 6.5 g/dL (6.0-8.3); Sodium 137 mmol/L (136-145)
[2017-04-08] MEDS: Enoxaparin Sodium 40 MG/0.4 ML SYRINGE SC SCH (07:53)
[2017-04-08] MEDS: Pantoprazole 40 MG VIAL IVP SCH (07:54)
--- NOTE | 2017-04-08 08:36 | PDOC.FM ---
- Subjective Subjective: Patient reports that her pain has improved some today. She describes it as a 1-2 /10. She has been using the norco and they have been helping some. She denies F/ C, N/V. - Objective MAR Reviewed: Yes Vital Signs & Weight: Vital Signs (12 hours) Temp Pulse Resp BP Pulse Ox 04/08/17 04:00 98.7 F 88 19 104/69 97 04/08/17 00:00 99.0 F 94 19 98/66 96 Weight Admit Weight 78.245 kg Weight 87.543 kg Most Recent Monitor Data Heart Rate from ECG 90 NIBP 125/70 NIBP BP-Mean 84 Respiration from ECG 27 SpO2 100 I&O: 04/07/17 04/08/17 04/09/17 06:59 06:59 06:59 Intake Total 1550 2610 Balance 1550 2610 Result Diagrams: 04/08/17 05:22 04/08/17 05:22 <Samantha Gaston - Last Filed: 04/08/17 08:32> - Objective Vital Signs & Weight: Weight Admit Weight 78.245 kg Weight 87.543 kg Most Recent Monitor Data Heart Rate from ECG 90 NIBP 125/70 NIBP BP-Mean 84 Respiration from ECG 27 SpO2 100 I&O: 04/08/17 04/09/17 04/10/17 06:59 06:59 06:59 Intake Total 2610 Balance 2610 Result Diagrams: 04/08/17 05:22 04/08/17 05:22 <Shannan Foley - Last Filed: 04/09/17 09:11> Phys Exam - Physical Examination Constitutional: NAD HEENT: moist MMs Respiratory: no wheezing, no rales, no rhonchi, clear to auscultation bilateral Cardiovascular: RRR, no significant murmur, no rub Gastrointestinal: soft, no distention, positive bowel sounds tender to palpation in the JEN region Musculoskeletal: no edema, pulses present Neurological: non-focal, moves all 4 limbs Psychiatric: normal affect, A&O x 3 <Samantha Gaston - Last Filed: 04/08/17 08:32> Dx/Plan (1) Sepsis Code(s): A41.9 - SEPSIS, UNSPECIFIED ORGANISM Status: Acute QualifierTitle: Sepsis type: sepsis due to unspecified organism Qualified Code(s): A41.9 - Sepsis, unspecified organism (2) Acute gallstone pancreatitis Code(s): K85.10 - BILIARY ACUTE PANCREATITIS WITHOUT NECROSIS OR INFECTION Status: Acute (3) Cholecystitis Code(s): K81.9 - CHOLECYSTITIS, UNSPECIFIED Status: Acute (4) Choledocholithiasis Code(s): K80.50 - CALCULUS OF BILE DUCT W/O CHOLANGITIS OR CHOLECYST W/O OBST Status: Acute (5) Cholelithiases Code(s): K80.20 - CALCULUS OF GALLBLADDER W/O CHOLECYSTITIS W/O OBSTRUCTION Status: Acute QualifierTitle: Cholelithiasis location: gallbladder and bile duct Cholecystitis presence: with cholecystitis Cholecystitis acuity: acute Biliary obstruction: with biliary obstruction Qualified Code(s): K80.63 - Calculus of gallbladder and bile duct with acute cholecystitis with obstruction (6) Invasive ductal carcinoma of breast Code(s): C50.919 - MALIGNANT NEOPLASM OF UNSP SITE OF UNSPECIFIED FEMALE BREAST Status: Acute QualifierTitle: Laterality: left Qualified Code(s): C50.912 - Malignant neoplasm of unspecified site of left female breast - Plan Plan: 1. Sepsis 2/2 Gallstone Pancreatitis and cholecystitis Improved S/p ERCP with removal of 3 stones in the common bile duct. It appears that the cystic duct is also obstructed. Will continue to follow gen surg and GI recs. s/ p Diagnostic laparoscopy on 04/04 that was intended for cholecystectomy, but the patient had too much inflammatory change at the time. The plan is now for lap edy in 6-[address] abd/pelvis showed large loculated pseudocyst, abscess could not be ruled out. -Zosyn day 12 -Continue low fat diet -[employer] was d/c'd, will continue norco for pain. Increased regimen to try for better pain control -Gen surg and GI on board, appreciate recs 2. Cholecystitis Liver enzymes downtrended. WBC increased this am. Afebrile for >24 hours. Zosyn is on empirically. Obstructed cystic duct as well. Continue to follow gen surg recs. Anticipate surgery in 6-8 weeks. -Zosyn day 12 -[place] -Low fat diet 3. Anemia, normocytic. -H/H improved -Could be 2/2 dilutional vs chronic disease. B12 and folate were WNL. Ferritin elevated likely reactive. Iron and TIBC low 4. Gallstone Pancreatitis -s/p ERCP with removal of 3 stones in the common bile duct. Lipase downtrending. Pain improved. Will continue to follow GI and Gen surg recs. -Low fat diet 5. Choledocolithiasis Now s/p ERCP with removal of three stones (5-6mm each) from the common bile duct. However based on the ERCP images, it appears that the cystic duct is also obstructed. 6. Hyperchloremia Resolved. 7. Invasive ductal carcinoma on chemo Dr. Myers is following. -Patient missed her chemo treatment on 04/05, but per Onc, this will be postponed until after patient has recovered from this acute illness. Will follow Onc recs. 8. Constipation Patient now having soft stools. Will monitor. <Samantha Gaston - Last Filed: 04/08/17 08:32> Attending Addendum - Attending Addendum Date/Time: 04/09/17 0910 I personally evaluated the patient and discussed the management with Dr. Gaston on 04/08/17. I agree with the History, Examination, Assessment and Plan documented above with any addition or exceptions noted below. Patient's CT shows early stages of pseudocyst. Pain currently well controlled on full diet with PO meds. Will d/w Dr. Davies possibility of discharge home today. <Shannan Foley - Last Filed: 04/09/17 09:11>
--- NOTE | 2017-04-08 11:43 | PDOC.GSPN ---
Surgery Progress Note: Subj - Subjective Narrative: feels much better today Surgery Progress Note: Obj - Vital signs Vital signs: Vital Signs - Most Recent Temp Pulse Resp BP Pulse Ox 98 F 81 32 H 105/73 94 L 04/08/17 08:10 04/08/17 08:10 04/08/17 08:10 04/08/17 08:10 04/08/17 08:10 - Physical Exam General: no distress Cardiovascular: regular rate and rhythm Respiratory: clear to auscultation Abdomen: soft, non tender Surgery Progress Note: Results - Labs Result Diagrams: 04/08/17 05:22 04/08/17 05:22 Lab results: Laboratory Results - last 24 hr 04/08/17 04/08/17 05:22 05:22 WBC 16.3 H RBC 3.96 L Hgb 11.3 L Hct 34.0 L MCV 85.9 MCH 28.5 MCHC 33.2 RDW 13.8 Plt Count 622 H MPV 7.0 L Neutrophils % 77.4 H Lymphocytes % 10.9 L Monocytes % 7.7 Eosinophils % 3.8 Basophils % 0.3 Neutrophils # 12.6 H Lymphocytes # 1.8 Monocytes # 1.3 H Eosinophils # 0.6 Basophils # 0.0 Sodium 137 Potassium 4.0 Chloride 104 Carbon Dioxide 25 Anion Gap 12 BUN 6 L Creatinine 0.63 Estimated GFR (MDRD) Greater than 90 Glucose 96 Calcium 8.7 Magnesium 2.3 Total Bilirubin 0.4 AST 22 ALT 43 Alkaline Phosphatase 104 Serum Total Protein 6.5 Albumin 3.3 L Globulin 3.2 Albumin/Globulin Ratio 1.0 L Surgery Progress Note: A/P - Problem (1) Gallstone pancreatitis Current Visit: Yes Code(s): K85.10 - BILIARY ACUTE PANCREATITIS WITHOUT NECROSIS OR INFECTION Status: Acute (2) Hypovolemic shock Current Visit: Yes Code(s): R57.1 - HYPOVOLEMIC SHOCK Status: Acute - Plan Plan: She is feeling better. Tolerating diet. DC home, f/u 2 weeks. I sent rx for norco and zofran to [facility]
[2017-04-08 12:21] VITALS: BP 107/75; TEMP 97.8
--- NOTE | 2017-04-09 01:36 | DIS-2 ---
DATE OF ADMISSION: 03/27/2017 DATE OF DISCHARGE: 04/08/2017 ADMITTING RESIDENT: Kelby Alamo MD DISCHARGE RESIDENT: Dr. Samantha Gaston. ADMITTING ATTENDING: Dr. Jaleesa Hughes. DISCHARGE ATTENDING: Dr. Shannan Foley. CONSULTS: 1. Dr. Davies with General Surgery. 2. Dr. Monteiro with Gastroenterology. 3. Dr. Myers with Oncology. 4. Dr. Santana with Pulmonology. 5. Anesthesiology. PROCEDURES: 1. ERCP with sphincterotomy and balloon extraction on 03/28/2017. 2. Diagnostic laparoscopy-cholecystectomy, not performed given local inflammatory change and extensi ve fat saponification in the right upper quadrant on 04/04/2017. IMAGIN. Abdomen ultrasound showed cholelithiasis evidence of biliary ductal obstruction and pericholecyst ic fluid. 2. Abdomen MRI showed cholelithiasis, choledocholithiasis, findings suspicious for acute cholecystit is, and pancreatitis. 3. Chest thorax CTA showed no pulmonary artery thromboembolism. Small bilateral pleural effusions a nd prominent posterior bilateral pleural based parenchymal changes. Interval development of fairly m arked ascites with some fluid around the region of the pancreas and pericholecystic fluid with probab le gallstones and possible concern for acute cholecystitis. 4. Chest x-ray showed no evidence of acute cardiopulmonary disease. 5. Abdomen and pelvis CT showed bilateral pleural effusions. Large loculated collection and peripan creatic location, which extends inferior and anterior likely related to pseudocyst formation measurin g 19.8 cm x 8.4 cm. PRIMARY DIAGNOSES: 1. Sepsis secondary to gallstone pancreatitis and cholecystitis. 2. Severe necrotizing gallstone pancreatitis. 3. Cholecystitis. 4. Normocytic anemia. 5. Hyperchloremia. 6. Constipation. 7. Pseudocyst formation. 8. Invasive ductal carcinoma, currently on chemotherapy. DISCHARGE MEDICATIONS: 1. Pantoprazole 40 mg p.o. daily. 2. [place] 5/325 mg 2 tabs p.o. q.4 hours p.r.n. pain. 3. Zofran 8 mg p.o. q.8 hours p.r.n. nausea, vomiting. DISCONTINUED MEDICATIONS: None. HISTORY OF PRESENT ILLNESS AND HOSPITAL COURSE: This is a 31-year-old female with a recent diagnosis of invasive ductal carcinoma recently started on chemotherapy. Also, recently , who prese nted with abdominal pain that came on suddenly associated with vomiting, worsened with food. The patient had received her last chemotherapy on 03/24/2017. She recently delivered her baby on via normal spontaneous vaginal delivery. Patient was diagnosed with breast cancer around robert t time and got her MediPort placed on 02/22/2017. The patient was found to be tachycardic and had el evated white count with 92% neutrophils, 5% bands. Her lipase was initially 2376 and her amylase was 247. She had LDH checked that was 650. The patient's initial total bilirubin was 2.6. Her AST was 472, ALT was 544 and alkaline phosphatase was 327. The patient had a CRP of 17.41. She initially o n her first day of hospitalization, General Surgery and Gastroenterology were consulted. The patient underwent an ERCP with sphincterotomy and stone extraction, and she had three stones extracted. Pat ient was initially made n.p.o., was given IV fluids and was started empirically on Zosyn for antibiot ics. The patient improved day-to-day throughout her hospitalization and the plan was for a laparosco pic cholecystectomy once the patient's pancreatitis had settled down; however, at the time that patie nt appeared clinically better and her labs had improved as far as her LFTs trending down, her white c ount trending down. The General surgeon, Dr. Davies did a diagnostic laparoscopy with the intention of doing a laparoscopic cholecystectomy and found that there was too much inflammatory change and de termined that the patient was a better candidate to wait 6-8 weeks for laparoscopic cholecystectomy. The patient was started on a CHOIRMASTER pump for pain at this time and started on a clear liquid diet. Thi s was advanced as she tolerated it until she got up to a low-fat diet. At that time that her CHOIRMASTER pum p was discontinued, she was started on [place] for pain. The patient started experiencing more localiz ed pain in the midepigastric region. She had a CT done of her abdomen and pelvis which revealed a la rge pseudocyst formation. This was not unexpected based on the changes that Dr. Davies had seen dur ing his diagnostic laparoscopy. The patient on the day of discharge had much improved pain, was afeb rile, her white count was still elevated at 14; however, all of her LFTs had improved and she is no longer in much pain and her pain was very well controlled on [place]. The patient was started on Matthew nix and given instructions of when to return to the ER as well as instructions to follow up with Dr. Davies within 2 weeks and she had an appointment scheduled with Dr. Myers, her oncologist for this upcoming Tuesday. DISPOSITION: Stable. DISCHARGE INSTRUCTIONS: 1. Location: Home. 2. Diet: Low-fat. 3. Activity: As tolerated. 4. Follow up with Dr. Davies within [address] Myers within 3 days.
== END 2017-04-08 16:07 | disposition home or self-care (01) | DRG 853 ==
LOC: ERS 18:35 → ERHOLD 20:10 → ONC 23:08 → CCU 03-28 16:19 → 2SE 03-31 16:32 → SURG A 04-01 14:58
PROVIDERS: ADMIT Student in an Organized Health Care Education/Training Program; ATTEND Student in an Organized Health Care Education/Training Program
PROC: 0FC98ZZ Extirpation of Matter from Common Bile Duct, Via Natural or Artificial Opening Endoscopic (ICD-10-PCS; 2017-03-28)
PROC: BF130ZZ Fluoroscopy of Gallbladder and Bile Ducts using High Osmolar Contrast (ICD-10-PCS; 2017-03-28)
PROC: 0WJP4ZZ Inspection of Gastrointestinal Tract, Percutaneous Endoscopic Approach (ICD-10-PCS; principal; 2017-04-04)
DX: A41.9 Sepsis, unspecified organism (principal); K85.10 Biliary acute pancreatitis without necrosis or infection; R57.1 Hypovolemic shock; E87.8 Other disorders of electrolyte and fluid balance, not elsewhere classified; R18.8 Other ascites; K80.63 Calculus of gallbladder and bile duct with acute cholecystitis with obstruction; C50.412 Malignant neoplasm of upper-outer quadrant of left female breast; N39.0 Urinary tract infection, site not specified; K86.3 Pseudocyst of pancreas; K59.00 Constipation, unspecified; D64.9 Anemia, unspecified; Z17.0 Estrogen receptor positive status [ER+]
CPT/HCPCS: 36415; 71045; 71275; 74177; 74181; 74330; 76705; 80048; 80053; 80061; 80076; 81003; 81015; 82150; 82274; 82607; 82728; 82746; 83540; 83550; 83615; 83690; 83735; 84100; 84703; 85025; 86140; 87040; 87086; 87324; 87449; 93005; 93010; 96361; 96374; 96375; 96376; J2270; A4216; C9113; G8978-GP-CI; G8979-GP-CI; G8980-GP-CI; J0131; J0670; J0696; J1100; J1610; J1642; J1650; J1885; J1940; J2001; J2185; J2370; J2405; J2543; J2704; J3010; J7050; Q9961

== ENCOUNTER 2017-04-12 08:50 | Day surgery (SDC) | payer OTHER ==
[2017-04-12] MEDS ORDERED: Dexamethasone 4 mg/ml Vial SLOW IVP SCH (09:00)
[2017-04-12] MEDS ORDERED: Fosaprepitant Dimeglumine 150 MG, Admixture Fee 1 EACH in Sodium Chloride 0.9% 250 ML 1... IVPB SCH (09:00)
[2017-04-12] MEDS ORDERED: Pegfilgrastim 6 MG/0.6 ML Delivery Kit SQ SCH (09:00)
[2017-04-12] MEDS ORDERED: PALONOSETRON HCL 0.05 MG/ML 5 ML VIAL IVP SCH (09:00)
[2017-04-12] MEDS ORDERED: Sodium Chloride 0.9% 40 ML ONE (09:10)
[2017-04-12] MEDS ORDERED: Cyclophosphamide 1 GM, Admixture Fee 1 EACH in Sodium Chloride 0.9% 250 ML 250 ML IVPB SCH (09:15)
[2017-04-12] MEDS ORDERED: DOXORUBICIN SLOW IVP SCH (09:15)
[2017-04-12] MEDS ORDERED: Dexamethasone 10 MG/ML VIAL SLOW IVP SCH (09:15)
[2017-04-12] MEDS ORDERED: ADMIXTURE FEE SLOW IVP SCH (09:15)
[2017-04-12] MEDS ORDERED: DOXORUBICIN IVPB SCH (09:30)
[2017-04-12] MEDS ORDERED: SODIUM CHLORIDE IVPB SCH (09:30)
[2017-04-12] MEDS ORDERED: ADMIXTURE FEE IVPB SCH (09:30)
[2017-04-12 09:45] VITALS: BP 123/73; TEMP 97.7
== END 2017-04-12 16:35 | disposition home or self-care (01) ==
LOC: ONC/OP 08:50
PROVIDERS: ATTEND Internal Medicine Hematology & Oncology
DX: Z51.11 Encounter for antineoplastic chemotherapy (principal); C50.412 Malignant neoplasm of upper-outer quadrant of left female breast; Z17.0 Estrogen receptor positive status [ER+]; Z79.899 Other long term (current) drug therapy; Z95.828 Presence of other vascular implants and grafts; Z98.890 Other specified postprocedural states; Z80.0 Family history of malignant neoplasm of digestive organs
CPT/HCPCS: 96367; 96375; 96377; 96413; 96417; A4216; J1100; J1453; J1642; J2469; J2505; J7050; J9000; J9070

== ENCOUNTER 2017-04-26 09:52 | Day surgery (SDC) | payer OTHER ==
[2017-04-26] MEDS ORDERED: SODIUM CHLORIDE IVPB SCH (10:30)
[2017-04-26] MEDS ORDERED: Dexamethasone 10 MG/ML VIAL SLOW IVP SCH (10:30)
[2017-04-26] MEDS ORDERED: Pegfilgrastim 6 MG/0.6 ML Delivery Kit SQ SCH (10:30)
[2017-04-26] MEDS ORDERED: DOXORUBICIN IVPB SCH (10:30)
[2017-04-26] MEDS ORDERED: ADMIXTURE FEE IVPB SCH (10:30)
[2017-04-26] MEDS ORDERED: PALONOSETRON HCL 0.05 MG/ML 5 ML VIAL IVP SCH (10:30)
[2017-04-26] MEDS ORDERED: Cyclophosphamide 1 GM, Admixture Fee 1 EACH in Sodium Chloride 0.9% 250 ML 250 ML IVPB SCH (10:30)
[2017-04-26] MEDS ORDERED: Sodium Chloride 0.9% 30 ML ONE (10:39)
== END 2017-04-26 16:47 | disposition home or self-care (01) ==
LOC: ONC/OP 09:52
PROVIDERS: ATTEND Internal Medicine Hematology & Oncology
DX: Z51.11 Encounter for antineoplastic chemotherapy (principal); C50.412 Malignant neoplasm of upper-outer quadrant of left female breast; Z17.0 Estrogen receptor positive status [ER+]; Z79.899 Other long term (current) drug therapy; Z95.828 Presence of other vascular implants and grafts; Z98.890 Other specified postprocedural states; Z80.0 Family history of malignant neoplasm of digestive organs
CPT/HCPCS: 96367; 96375; 96377; 96413; 96417; A4216; J1100; J1453; J1642; J2469; J2505; J7050; J9000; J9070

== ENCOUNTER 2017-05-10 11:48 | Day surgery (SDC) | payer OTHER, SELFPAY ==
[2017-05-10] MEDS ORDERED: DOXORUBICIN SLOW IVP SCH ×2 (12:00)
[2017-05-10] MEDS ORDERED: Cyclophosphamide 1 GM in Sodium Chloride 0.9% 250 ML 250 ML IVPB SCH ×2 (12:00→12:15)
[2017-05-10] MEDS ORDERED: Dexamethasone 10 MG/ML VIAL SLOW IVP SCH (12:15)
[2017-05-10] MEDS ORDERED: DOXORUBICIN 100 MG in Sodium Chloride 0.9% 50 ML SLOW IVP SCH (12:15)
[2017-05-10] MEDS ORDERED: Pegfilgrastim 6 MG/0.6 ML Delivery Kit SQ SCH (12:15)
[2017-05-10] MEDS ORDERED: PALONOSETRON HCL 0.05 MG/ML 5 ML VIAL IVP SCH (12:15)
[2017-05-10] MEDS ORDERED: Sodium Chloride 0.9% 50 ML ONE (12:17)
== END 2017-05-10 14:32 | disposition home or self-care (01) ==
LOC: ONC/OP 11:48
PROVIDERS: ATTEND Internal Medicine Hematology & Oncology
DX: Z51.11 Encounter for antineoplastic chemotherapy (principal); C50.412 Malignant neoplasm of upper-outer quadrant of left female breast
CPT/HCPCS: 96367; 96375; 96377; 96413; 96417; A4216; J1100; J1453; J1642; J2469; J2505; J7050; J9000; J9070

== ENCOUNTER 2017-05-24 15:08 | Day surgery (SDC) | payer OTHER, SELFPAY ==
[2017-05-24] MEDS ORDERED: Sodium Chloride 0.9% 40 ML ONE (15:26)
[2017-05-24] MEDS ORDERED: PRE FILLED IVP SCH (15:30)
[2017-05-24] MEDS ORDERED: Dexamethasone 10 MG/ML VIAL SLOW IVP SCH (15:30)
[2017-05-24] MEDS ORDERED: ONDANSETRON IVP SCH (15:30)
[2017-05-24] MEDS ORDERED: PACLitaxel 140 MG in Sodium Chloride 0.9% 250 ML 250 ML IVPB SCH (15:30)
[2017-05-24 15:40] VITALS: BP 116/76; TEMP 98.7
== END 2017-05-24 18:01 | disposition home or self-care (01) ==
LOC: ONC/OP 15:08
PROVIDERS: ATTEND Internal Medicine Hematology & Oncology
DX: Z51.11 Encounter for antineoplastic chemotherapy (principal); C50.412 Malignant neoplasm of upper-outer quadrant of left female breast; Z79.899 Other long term (current) drug therapy; Z95.828 Presence of other vascular implants and grafts
CPT/HCPCS: 96375; 96413; A4216; J1100; J1642; J2405; J7050; J9267

== ENCOUNTER 2017-05-31 10:50 | Day surgery (SDC) | payer OTHER ==
[2017-05-31] MEDS ORDERED: SODIUM CHLORIDE IVPB SCH (11:00)
[2017-05-31] MEDS ORDERED: ADMIXTURE FEE IVPB SCH (11:00)
[2017-05-31] MEDS ORDERED: PACLITAXEL IVPB SCH (11:00)
[2017-05-31] MEDS ORDERED: Dexamethasone 10 MG/ML VIAL SLOW IVP SCH (11:00)
[2017-05-31] MEDS ORDERED: Sodium Chloride 0.9% 20 ML ONE (11:39)
[2017-05-31 11:55] VITALS: BP 115/73; TEMP 98.4
== END 2017-05-31 15:50 | disposition home or self-care (01) ==
LOC: ONC/OP 10:50
PROVIDERS: ATTEND Internal Medicine Hematology & Oncology
DX: Z51.11 Encounter for antineoplastic chemotherapy (principal); C50.412 Malignant neoplasm of upper-outer quadrant of left female breast; Z17.0 Estrogen receptor positive status [ER+]; Z79.899 Other long term (current) drug therapy
CPT/HCPCS: 96375; 96413; A4216; J1100; J1642; J7050; J9267

== ENCOUNTER 2017-06-08 12:07 | Day surgery (SDC) | payer OTHER ==
[2017-06-08 12:13] VITALS: BP 117/63; TEMP 98.4
[2017-06-08] MEDS ORDERED: Sodium Chloride 0.9% 40 ML ONE (12:14)
[2017-06-08] MEDS ORDERED: PACLitaxel 140 MG in Sodium Chloride 0.9% 250 ML 250 ML IVPB SCH (12:30)
[2017-06-08] MEDS ORDERED: Dexamethasone 10 MG/ML VIAL SLOW IVP SCH (12:45)
== END 2017-06-08 15:03 | disposition home or self-care (01) ==
LOC: ONC/OP 12:07
PROVIDERS: ATTEND Internal Medicine Hematology & Oncology
DX: Z51.11 Encounter for antineoplastic chemotherapy (principal); C50.412 Malignant neoplasm of upper-outer quadrant of left female breast; Z79.899 Other long term (current) drug therapy; Z95.828 Presence of other vascular implants and grafts
CPT/HCPCS: 96375; 96413; A4216; J1100; J1642; J7050; J9267

== ENCOUNTER 2017-06-14 11:45 | Day surgery (SDC) | payer OTHER, SELFPAY ==
[2017-06-14] MEDS ORDERED: Sodium Chloride 0.9% 30 ML ONE (11:57)
[2017-06-14] MEDS ORDERED: Dexamethasone 4 mg/ml Vial SLOW IVP SCH (12:15)
[2017-06-14] MEDS ORDERED: PACLitaxel 140 MG in Sodium Chloride 0.9% 250 ML 250 ML IVPB SCH (12:15)
[2017-06-14 12:44] VITALS: BP 104/55; TEMP 98.6
== END 2017-06-14 14:43 | disposition home or self-care (01) ==
LOC: ONC/OP 11:45
PROVIDERS: ATTEND Internal Medicine Hematology & Oncology
DX: Z51.11 Encounter for antineoplastic chemotherapy (principal); C50.412 Malignant neoplasm of upper-outer quadrant of left female breast; Z79.899 Other long term (current) drug therapy; Z17.0 Estrogen receptor positive status [ER+]
CPT/HCPCS: 96375; 96413; A4216; J1100; J1642; J7050; J9267

== ENCOUNTER 2017-06-21 14:19 | Day surgery (SDC) | payer OTHER, SELFPAY ==
[2017-06-21] MEDS ORDERED: Sodium Chloride 0.9% 40 ML ONE (14:26)
[2017-06-21] MEDS ORDERED: PACLitaxel 140 MG in Sodium Chloride 0.9% 250 ML 250 ML IVPB SCH (14:30)
[2017-06-21] MEDS ORDERED: Dexamethasone 4 mg/ml Vial SLOW IVP SCH (14:30)
== END 2017-06-21 16:22 | disposition home or self-care (01) ==
LOC: ONC/OP 14:19
PROVIDERS: ATTEND Internal Medicine Hematology & Oncology
DX: Z51.11 Encounter for antineoplastic chemotherapy (principal); C50.412 Malignant neoplasm of upper-outer quadrant of left female breast
CPT/HCPCS: 96375; 96413; A4216; J1100; J1642; J7050; J9267

== ENCOUNTER 2017-06-28 13:35 | Day surgery (SDC) | payer OTHER ==
[2017-06-28] MEDS ORDERED: Dexamethasone 4 mg/ml Vial SLOW IVP SCH (13:45)
[2017-06-28] MEDS ORDERED: PACLITAXEL IVPB SCH (13:45)
[2017-06-28] MEDS ORDERED: ADMIXTURE FEE IVPB SCH (13:45)
[2017-06-28] MEDS ORDERED: SODIUM CHLORIDE IVPB SCH (13:45)
[2017-06-28 13:59] VITALS: BP 117/71; TEMP 98.5
[2017-06-28] MEDS ORDERED: Sodium Chloride 0.9% 30 ML ONE (14:00)
== END 2017-06-28 15:17 | disposition home or self-care (01) ==
LOC: ONC/OP 13:35
PROVIDERS: ATTEND Internal Medicine Hematology & Oncology
DX: Z51.11 Encounter for antineoplastic chemotherapy (principal); C50.412 Malignant neoplasm of upper-outer quadrant of left female breast; Z17.0 Estrogen receptor positive status [ER+]
CPT/HCPCS: 96375; 96413; A4216; J1100; J1642; J7050; J9267

== ENCOUNTER 2017-07-05 13:42 | Day surgery (SDC) | payer OTHER, SELFPAY ==
[2017-07-05] MEDS ORDERED: Sodium Chloride 0.9% 30 ML ONE (13:52)
[2017-07-05 13:57] VITALS: BP 120/64; TEMP 98.2
[2017-07-05] MEDS ORDERED: PACLitaxel 140 MG in Sodium Chloride 0.9% 250 ML 250 ML IVPB SCH (14:00)
[2017-07-05] MEDS ORDERED: Dexamethasone 4 mg/ml Vial SLOW IVP SCH (14:00)
== END 2017-07-05 16:01 | disposition home or self-care (01) ==
LOC: ONC/OP 13:42
PROVIDERS: ATTEND Internal Medicine Medical Oncology
DX: Z51.11 Encounter for antineoplastic chemotherapy (principal); C50.412 Malignant neoplasm of upper-outer quadrant of left female breast
CPT/HCPCS: 96375; 96413; A4216; J1100; J1642; J7050; J9267

== ENCOUNTER 2017-07-12 13:49 | Day surgery (SDC) | payer OTHER ==
[2017-07-12] MEDS ORDERED: Sodium Chloride 0.9% 30 ML ONE (13:57)
[2017-07-12 14:11] VITALS: BP 116/75; TEMP 99.1
[2017-07-12] MEDS ORDERED: PACLitaxel 140 MG in Sodium Chloride 0.9% 250 ML 250 ML IVPB SCH (14:15)
[2017-07-12] MEDS ORDERED: Dexamethasone 4 mg/ml Vial SLOW IVP SCH (14:15)
== END 2017-07-12 15:33 | disposition home or self-care (01) ==
LOC: ONC/OP 13:49
PROVIDERS: ATTEND Internal Medicine Hematology & Oncology
DX: Z51.11 Encounter for antineoplastic chemotherapy (principal); C50.412 Malignant neoplasm of upper-outer quadrant of left female breast
CPT/HCPCS: 96375; 96413; A4216; J1100; J1642; J7050; J9267

== ENCOUNTER 2017-07-19 14:14 | Day surgery (SDC) | payer OTHER ==
[2017-07-19] MEDS ORDERED: PACLitaxel 140 MG in Sodium Chloride 0.9% 250 ML 250 ML IVPB SCH (14:30)
[2017-07-19] MEDS ORDERED: Dexamethasone 4 mg/ml Vial SLOW IVP SCH (14:30)
[2017-07-19] MEDS ORDERED: Sodium Chloride 0.9% 30 ML ONE (14:32)
[2017-07-19 15:50] VITALS: BP 110/57; TEMP 98.2
== END 2017-07-19 16:26 | disposition home or self-care (01) ==
LOC: ONC/OP 14:14
PROVIDERS: ATTEND Internal Medicine Hematology & Oncology
DX: Z51.11 Encounter for antineoplastic chemotherapy (principal); C50.412 Malignant neoplasm of upper-outer quadrant of left female breast; Z17.0 Estrogen receptor positive status [ER+]
CPT/HCPCS: 96375; 96413; A4216; J1100; J1642; J7050; J9267

== ENCOUNTER 2017-07-26 14:00 | Day surgery (SDC) | payer OTHER, SELFPAY ==
[2017-07-26] MEDS ORDERED: Sodium Chloride 0.9% 40 ML ONE (14:10)
[2017-07-26] MEDS ORDERED: PACLitaxel 140 MG in Sodium Chloride 0.9% 250 ML 250 ML IVPB SCH (14:15)
[2017-07-26] MEDS ORDERED: Dexamethasone 4 mg/ml Vial SLOW IVP SCH (14:15)
[2017-07-26 14:25] VITALS: BP 107/66; TEMP 98.5
== END 2017-07-26 16:10 | disposition home or self-care (01) ==
LOC: ONC/OP 14:00
PROVIDERS: ATTEND Internal Medicine Hematology & Oncology
DX: Z51.11 Encounter for antineoplastic chemotherapy (principal); C50.412 Malignant neoplasm of upper-outer quadrant of left female breast
CPT/HCPCS: 96375; 96413; A4216; J1100; J1642; J7050; J9267

== ENCOUNTER 2017-08-02 13:38 | Day surgery (SDC) | payer OTHER ==
[2017-08-02] MEDS ORDERED: Dexamethasone 4 mg/ml Vial SLOW IVP SCH (14:00)
[2017-08-02] MEDS ORDERED: PACLitaxel 140 MG in Sodium Chloride 0.9% 250 ML 250 ML IVPB SCH (14:00)
[2017-08-02] MEDS ORDERED: Sodium Chloride 0.9% 30 ML ONE (14:03)
== END 2017-08-02 16:37 | disposition home or self-care (01) ==
LOC: ONC/OP 13:38
PROVIDERS: ATTEND Internal Medicine Hematology & Oncology
DX: Z51.11 Encounter for antineoplastic chemotherapy (principal); C50.412 Malignant neoplasm of upper-outer quadrant of left female breast; Z17.0 Estrogen receptor positive status [ER+]; Z98.890 Other specified postprocedural states
CPT/HCPCS: 96375; 96413; A4216; J1100; J1642; J7050; J9267

== ENCOUNTER 2017-08-09 13:54 | Day surgery (SDC) | payer OTHER ==
[2017-08-09] MEDS ORDERED: Sodium Chloride 0.9% 30 ML ONE (14:00)
[2017-08-09] MEDS ORDERED: PACLitaxel 140 MG in Sodium Chloride 0.9% 250 ML 250 ML IVPB SCH (14:30)
[2017-08-09] MEDS ORDERED: Dexamethasone 4 mg/ml Vial SLOW IVP SCH (14:30)
[2017-08-09 16:19] VITALS: BP 114/78
== END 2017-08-09 17:14 | disposition home or self-care (01) ==
LOC: ONC/OP 13:54
PROVIDERS: ATTEND Internal Medicine Hematology & Oncology
DX: Z51.11 Encounter for antineoplastic chemotherapy (principal); C50.412 Malignant neoplasm of upper-outer quadrant of left female breast; Z17.0 Estrogen receptor positive status [ER+]
CPT/HCPCS: 96375; 96413; 96523; A4216; J1100; J1642; J7050; J9267

== ENCOUNTER 2017-09-05 15:34 | Outpatient (CLI) | payer OTHER, SELFPAY ==
[2017-09-05 16:20] LABS: #Eosinphils 0.1 thou/uL (0.0-0.7); #Lymphocytes 1.5 thou/uL (1.20-3.40); #Monocytes 0.5 thou/uL (0.11-0.59); #Neutrophils 3.9 thou/uL (1.40-6.50); %Basophils 0.4 % (0.0-1.0); %Eosinophils 2.4 % (0.0-10.0); %Lymphocytes 24.4 % (21.0-51.0); %Monocytes 8.1 % (0.0-10.0); %Neutrophils 64.6 % (42.0-75.0); Hemoglobin 12.9 g/dL (12.0-16.0); Mean Corpuscular HGB CONC 35.5 g/dL (32.0-36.0); Mean Corpuscular Hemoglobin 30.6 pg (27.0-31.0); Mean Corpuscular Volume 86.2 fL (78.0-98.0); Mean Platelet Volume 8.8 fL (7.4-10.4); Platelet Count 162 thou/uL (130-400); Red Blood Cell (RBC) Count 4.21 mill/uL (4.20-5.40); White Blood Cell (WBC) Count 6.1 thou/uL (4.8-10.8)
[2017-09-05 16:40] LABS: ALT (SGPT) 25 U/L (8-55); AST (SGOT) 18 U/L (5-34); Albumin 4.3 g/dL (3.5-5.0); Alkaline Phosphatase 77 U/L (40-150); Anion Gap 13 mmol/L (10-20); BHCG - Serum Negative (NEGATIVE); BUN (Urea Nitrogen) 9 mg/dL (7.0-18.7); Bilirubin, Direct 0.2 mg/dL (0.1-0.3); Bilirubin, Total 0.4 mg/dL (0.2-1.2); Calc. Creatinine Clearance 0 mL/min (70-130); Calcium 9.3 mg/dL (7.8-10.44); Carbon Dioxide 23 mmol/L (22-29); Chloride 106 mmol/L (98-107); Estimated GFR-MDRD Greater than 90; Glucose 107 mg/dL (70-105); Lipase 9 U/L (8-78); Pregs Control Background? CLEAR/WHITE (CLR/WHITE); Pregs Control Bar Appear? YES (CONTROL BAR); Protein, Total 6.6 g/dL (6.0-8.3); Sodium 138 mmol/L (136-145)
== END 2017-09-05 15:35 | disposition home or self-care (01) ==
LOC: LABBT 15:34
PROVIDERS: ATTEND Surgery
DX: Z01.812 Encounter for preprocedural laboratory examination (principal); C50.912 Malignant neoplasm of unspecified site of left female breast; K80.20 Calculus of gallbladder without cholecystitis without obstruction
CPT/HCPCS: 80048; 80076; 83690; 84703; 85025

== ENCOUNTER → 2017-09-07 | Day surgery (SDC) | payer OTHER, SELFPAY ==
[2017-09-05 15:56] VITALS: BMI 30.2
[~2017-09-07] MED LIST: Lidocaine 1% PF 5 ML VIAL ONE; Sodium Bicarbonate 2.5 MEQ/5 ML VIAL ONE
--- NOTE | 2017-09-07 10:14 | ULT ---
ULTRASOUND GUIDED LEFT BREAST MASS BIOPSY: Date: 09/07/17 HISTORY: Concern for multicentric breast malignancy. COMPARISON: Ultrasound from February 2017. TECHNIQUE/FINDINGS: The patient was to have a needle localization. Upon evaluation of the left breast, before the needle localization, patient states she had a palpable abnormality in the left breast at 1-2 o'clock. Invest igating this mass, it appeared to be taller than wide with angular margins and posterior acoustic sha dowing. The surgeon was called. The case was discussed. It was felt that the left breast mass at 1-2 o'clock should be biopsied to evaluate for underlying multicentric disease. The left breast was prepped and draped in the normal sterile fashion. Informed consent was obtained. Timeout was performed. A total of four 14 gauge biopsies were obtained. Clip was placed. Post clip mammogram showed good pos ition of the clip. IMPRESSION: Technically successful left breast mass biopsy. Pathology is pending. POS: [facility]
--- NOTE | 2017-09-07 14:15 | MMO ---
POST CLIP MAMMOGRAM: Date: 09/07/17 HISTORY: 12-1 o'clock left breast mass biopsy. COMPARISON: None. FINDINGS/IMPRESSION: The post biopsy mammogram shows a clip at the 12 o'clock position, the expected location of the biops y. There is also a clip at 3 o'clock and the left axilla, all from prior biopsy. POS: [facility]
== END ==
LOC: SDC 07:00
PROVIDERS: ATTEND Surgery
PROC: 0HBU3ZX Excision of Left Breast, Percutaneous Approach, Diagnostic (ICD-10-PCS; principal; 2017-09-07)
DX: C50.412 Malignant neoplasm of upper-outer quadrant of left female breast (principal); C77.3 Secondary and unspecified malignant neoplasm of axilla and upper limb lymph nodes; Z17.1 Estrogen receptor negative status [ER-]
CPT/HCPCS: 19285; 88305; 88341; 88342; 88360; 88361; J2001

== ENCOUNTER 2017-09-20 09:46 | Inpatient (IN) | payer OTHER ==
[2017-09-20] MEDS ORDERED: CEFAZOLIN/Water 2 GM/20 ML SYRINGE ONE (11:26)
[2017-09-20 11:35] LABS: BHCG - Serum Negative (NEGATIVE); Pregs Control Background? CLEAR/WHITE (CLR/WHITE); Pregs Control Bar Appear? YES (CONTROL BAR)
[2017-09-20] MEDS ORDERED: Iothalamate Meglumine 60% 50 ML VIAL FS ONE (11:35)
[2017-09-20] MEDS ORDERED: Bupivacaine/Epinephrine 0.25% 30 ML VIAL ONE (11:35)
[2017-09-20] MEDS ORDERED: Fentanyl 100 MCG/2 ML VIAL ONE ×3 (11:39→15:19)
[2017-09-20] MEDS ORDERED: Glycopyrrolate 0.2 MG/ML 5 ML SYRINGE ONE (14:23)
[2017-09-20] MEDS ORDERED: Ketorolac Tromethamine 30 MG/ML VIAL ONE (14:23)
[2017-09-20] MEDS ORDERED: PROPOFOL 200 MG/20 ML VIAL ONE (14:23)
[2017-09-20] MEDS ORDERED: Dexamethasone 20 MG/5 ML VIAL ONE (14:23)
[2017-09-20] MEDS ORDERED: Ondansetron HCl/PF 4 MG/2 ML Vial ONE (14:23)
[2017-09-20] MEDS ORDERED: Lidocaine 1% PF 5 ML VIAL ONE (14:23)
[2017-09-20] MEDS ORDERED: HYDROmorphone 2 MG/ML VIAL SLOW IVP PRN (14:36)
[2017-09-20] MEDS ORDERED: Promethazine HCl 25 MG/ML VIAL SLOW IVP PRN (14:36)
[2017-09-20] MEDS ORDERED: Promethazine HCl 25 MG/ML VIAL IM PRN ×3 (14:36→16:37)
[2017-09-20] MEDS ORDERED: Ondansetron HCl/PF 4 MG/2 ML Vial IVP PRN ×3 (14:36→16:37)
[2017-09-20] MEDS ORDERED: Promethazine HCl 25 MG/ML VIAL ONE (15:19)
--- NOTE | 2017-09-20 15:47 | RAD ---
INTRAOPERATIVE CHOLANGIOGRAM 1 VIEW: DATE: 09/20/17. HISTORY: A 32-year-old female undergoing laparoscopic cholecystectomy. FINDINGS: A single image with injection into the cystic duct stump demonstrates common bile duct caliber that i s at the upper limits of normal or slightly dilated. There is no high-grade obstruction, as the cont rast material enters the duodenal lumen. No filling defect is identified. There is nonspecific irre gularity at the ampulla. The common hepatic duct is very poorly opacified, and its branches are not visualized. IMPRESSION: Prominent caliber of common bile duct, but no high-grade obstruction of the biliary tree. POS: [facility]
[2017-09-20] MEDS ORDERED: fentaNYL Citrate/PF 2,000 MCG in Sodium Chloride 0.9% 60 ML IV PRN (16:27)
[2017-09-20] MEDS ORDERED: diphenhydrAMINE 50 MG/ML VIAL IM/IV PRN (16:27)
[2017-09-20] MEDS ORDERED: diphenhydrAMINE 25 MG CAP PO PRN (16:27)
[2017-09-20] MEDS ORDERED: Zolpidem Tartrate 5 MG TAB PO PRN (16:27)
[2017-09-20] MEDS ORDERED: hydrALAZINE 20 MG/ML VIAL SLOW IVP PRN (16:37)
[2017-09-20] MEDS ORDERED: Dextrose 50% Abboject 50 ML SYRINGE SLOW IVP PRN (16:37)
[2017-09-20] MEDS ORDERED: Sodium Chloride 0.9% 1,000 ML IV SCH (16:37)
[2017-09-20] MEDS ORDERED: Dextrose 5% in Water 1,000 ML IV PRN (16:37)
[2017-09-20 18:47] VITALS: BMI 31.6
--- NOTE | 2017-09-20 20:37 | OP ---
DATE OF PROCEDURE: 09/20/2017 PREOPERATIVE DIAGNOSES: 1. Locally invasive Left breast cancer with synchronous cancer found on recent ultrasound. Previous positive lymph node on biopsy, status post neoadjuvant chemotherapy. 2. History of gallstone necrotizing pancreatitis. POSTOPERATIVE DIAGNOSES: 1. Locally invasive Left breast cancer with synchronous cancer found on recent ultrasound. Previous positive lymph node on biopsy, status post neoadjuvant chemotherapy. 2. History of gallstone necrotizing pancreatitis. PROCEDURES: 1. Laparoscopic cholecystectomy with intraoperative cholangiogram. 2. Left modified radical mastectomy. SURGEON: Felipe Davies M.D. ANESTHESIA: General. ESTIMATED BLOOD LOSS: 50 mL COMPLICATIONS: None. FINDINGS: Normal cholangiogram. SPECIMEN: Gallbladder, left breast and axillary, is marked with two short superior, one long lateral and sent to path for final diagnosis. INDICATION: The patient is a 32-year-old female who was diagnosed with locally invasive left breast cancer with positive lymph node during . She was treated with neoadjuvant chemotherapy duri ng and after . She did have an admission for gallstone necrotizing pancreatitis, which she recovered from. An attempted laparoscopic cholecystectomy performed after that resolved was unsucces sful given the amount of significant residual inflammatory change in her abdomen. She now has finish ed her chemotherapy and is ready for her surgery. She was going to undergo needle localized left emory ast partial mastectomy of the original mass. However, on her needle localization films, was found to have a second malignancy. She now is going to undergo a left mastectomy and axillary content dissec tion. TECHNIQUE: The patient was taken to the operating room and placed supine on the table. After genera l anesthetic was obtained, the abdomen was prepped and draped in a sterile fashion. Curved incision was made above the umbilicus. Cautery was used to dissect down to and score the fascia. Abdominal c avity was entered bluntly using a Christina clamp. Holding stitch of PDS was placed on each side of the fascia. Luana trocar was placed after pneumoperitoneum was obtained. An upper midline 5-mm port an d 2 right upper quadrant 5-mm ports were placed under direct camera visualization. The gallbladder w as extracted from the gallbladder fossa. The peritoneum was taken down anteriorly and posteriorly. Critical view triangle was seen showing only the cystic duct and cystic artery branching from medial to lateral and no other branching structures. A clip was placed on the cystic duct. A small ductoto my was made just proximal to that. A cholangiocatheter was brought in through a separate stab incisi on, placed in the cystic duct and cholangiogram was performed which shows good contrast flow into the duodenum without obstruction. Cholangiocatheter was removed and 2 clips were placed proximal on the cystic duct and cystic duct was cut using laparoscopic scissors. Cystic artery was taken using two clips proximal, one clip distal and cut using laparoscopic scissors. Cautery was used to dissect the gallbladder out of the gallbladder fossa. Gallbladder was placed in an Endo catch bag and brought o ut through the Luana. There was no bleeding or bile in the liver bed. All port sites were infiltra anshul using local anesthetic. All ports were removed under camera visualization and pneumoperitoneum w as let down. PDS was used to close the fascial defect above the umbilicus. All incisions were irrig ated and closed using 4-0 Monocryl and Dermabond. Next, the left chest, left axilla were all prepped and draped in a sterile fashion. An elliptical in cision was used to ellipse out the nipple areolar complex extending from just lateral to the sternum all the way to the inferior hairline of the left axilla. Flaps were raised superior to the level of the clavicle medial to the sternum, inferior to inframammary fold and laterally to the latissimus roslyn si muscle. The breast was dissected off the chest wall by taking the pectoralis fascia off the muscl e and including it with the specimen. The axillary breast tissue was removed as well. As the tail o f the breast was dissected off of the chest wall, the clavipectoral fascia was entered. The axillary vein was found and most of the axillary dissection was performed with the LigaSure. No name vein wa s taken with LigaSure. The intercostal brachial nerve was taken using the LigaSure. Thoracodorsal a nd long thoracic nerves were found and excluded from the dissection. There were multiple enlarged ly mph nodes seen and were removed with the specimen. Level 1 and 2 lymph node dissection was performed . On the lateral inferior chest wall, an additional nodule of tissue was seen. This was removed and sent as chest wall mass. Two-round 19 drains were left in the mastectomy cavity. Meticulous hemost asis was obtained after the wound was irrigated. The breast cavity was closed using 3-0 Vicryl, 4-0 Monocryl, and Dermabond. The patient was wrapped using fluffs and an Huan wrap en route to recovery i n stable condition. All instrument counts, needle counts, lap counts were correct.
[2017-09-20] MEDS: Famotidine 20 MG TAB PO SCH (21:17)
[2017-09-21 07:54] VITALS: BP 99/64; TEMP 98.4
[2017-09-21] MEDS: Famotidine 20 MG TAB PO SCH (08:40)
[2017-09-21] MEDS ORDERED: Prevnar 13-Val Conj/PF 0.5 ML SYRINGE IM ONE (09:00)
[2017-09-21] MEDS ORDERED: HYDROcodone/Acetaminophen 10/325 mg Tablet PO PRN ×2 (10:20→10:21)
--- NOTE | 2017-09-21 11:41 | DIS ---
DATE OF ADMISSION: 09/20/2017 DATE OF DISCHARGE: 09/21/2017 ADMIT DIAGNOSES: 1. History of gallstone pancreatitis. 2. Locally invasive left breast cancer with previous positive axillary lymph node. DISCHARGE DIAGNOSES: 1. History of gallstone pancreatitis. 2. Locally invasive left breast cancer with previous positive axillary lymph node. PROCEDURES: 1. Left modified radical mastectomy. 3. Laparoscopic cholecystectomy with intraoperative cholangiogram by Dr. Davies without complicatio n. CONDITION AT DISCHARGE: Improved. STAFF: Dr. Felipe Davies HOSPITAL COURSE: The patient was admitted status post mastectomy. On postop day #1 she is doing wel l. Her pain is controlled. She is to be discharged home. She will return and see me in 1 week for drain removal. Prescriptions for hydrocodone sent over to [facility] [address]. She will follow up with me in 1 week.
== END 2017-09-21 11:24 | disposition home or self-care (01) | DRG 580 ==
LOC: SDC 09:46 → SJJU 18:06
PROVIDERS: ADMIT Surgery; ATTEND Surgery
PROC: 0HTU0ZZ Resection of Left Breast, Open Approach (ICD-10-PCS; principal; 2017-09-20)
PROC: 0FT44ZZ Resection of Gallbladder, Percutaneous Endoscopic Approach (ICD-10-PCS; 2017-09-20)
PROC: BF100ZZ Fluoroscopy of Bile Ducts using High Osmolar Contrast (ICD-10-PCS; 2017-09-20)
PROC: 0WB80ZZ Excision of Chest Wall, Open Approach (ICD-10-PCS; 2017-09-20)
PROC: 07T60ZZ Resection of Left Axillary Lymphatic, Open Approach (ICD-10-PCS; 2017-09-20)
DX: C50.919 Malignant neoplasm of unspecified site of unspecified female breast (principal); C77.3 Secondary and unspecified malignant neoplasm of axilla and upper limb lymph nodes; K80.20 Calculus of gallbladder without cholecystitis without obstruction; R22.2 Localized swelling, mass and lump, trunk; Z92.21 Personal history of antineoplastic chemotherapy
CPT/HCPCS: 47532; 84703; 88304; 88307; 88309; J1100; J1885; J2001; J2405; J2550; J2704; J3010; J7050; Q9961; Q9968

== ENCOUNTER 2017-11-22 07:35 | Outpatient (CLI) | payer OTHER ==
--- NOTE | 2017-11-22 10:58 | CT ---
CT OF THE NECK AND CHEST AND ABDOMEN AND PELVIS WITH IV CONTRAST: DATE: 11/22/2017. CLINICAL HISTORY: History of breast cancer, left supraclavicular probable finding. COMPARISON: Comparison is made with the CT examinations dated 04/07/2017, 03/28/2017, and 02/21/2017. FINDINGS: NECK: There is an enlarged left supraclavicular lymph node measuring about 1.8 x 1.1 cm in greatest transve rse dimensions. Prominent by number but not pathologically enlarged lymph nodes are also seen in the left supraclavicular region as well as anterior to the left scalene muscles. The parotid and subman dibular glands demonstrate no significant abnormality. The visualized aerodigestive tract appears un remarkable. The thyroid gland appears normal. No evidence for additional lymph node enlargement in the neck. The regional major vascular structures appear unremarkable. The visualized paranasal sinu ses appear clear. CHEST: Interval changes of left mastectomy. There is an enlarged left axillary lymph node, measuring about 1.8 x 1.2 cm in greatest transverse dimensions. No additional thoracic lymph node enlargement is appa rent. Right IJ implanted port is noted with tip in the region of the SVC. Heart, pericardium, and great ve ssels appear unremarkable. The lungs appear free of significant opacity. There is no pleural fluid or pneumothorax apparent. T he airway appears patent and of normal caliber. ABDOMEN AND PELVIS: The liver, spleen, pancreas, kidneys, and adrenal glands demonstrate an unremarkable CT appearance. Changes of cholecystectomy are now seen. There is no bowel dilatation, inflammatory fat stranding, f ree fluid, or lymph node enlargement apparent. Fibroid changes involving the uterus are redemonstrat ed. The osseous structures demonstrate no concerning osteoblastic or osteolytic lesions. IMPRESSION: 1. Enlarged left supraclavicular and axillary lymph nodes, suspicious for metastatic disease. 2. Chronic findings as above. POS: PATRICE
[2017-11-22] MEDS ORDERED: ISOVUE-370 76%-LOCM 1 ML ONE (15:56)
== END 2017-11-22 07:36 | disposition home or self-care (01) ==
LOC: BICCT 07:35
PROVIDERS: ATTEND Radiology Radiation Oncology
DX: C50.912 Malignant neoplasm of unspecified site of left female breast (principal); R59.0 Localized enlarged lymph nodes; Z90.12 Acquired absence of left breast and nipple; Z92.21 Personal history of antineoplastic chemotherapy
CPT/HCPCS: 70491; 71260; 74177

== ENCOUNTER 2018-08-24 09:18 | Day surgery (SDC) | payer OTHER ==
[~2018-08-24 09:18] MED LIST changes: +ADMIXTURE FEE IVPB SCH; +ATEZOLIZUMAB 840 MG in Sodium Chloride 0.9% 250 ML 250 ML IV SCH; -Lidocaine 1% PF 5 ML VIAL ONE; +Ondansetron 2MG/ML MDV 10 MG in Sodium Chloride 0.9% 50 ML IVP SCH; +PACLITAXEL PROTEIN BOUND IVPB SCH; -Sodium Bicarbonate 2.5 MEQ/5 ML VIAL ONE
[2018-08-24] MEDS ORDERED: Sodium Chloride 0.9% 20 ML ONE (10:21)
[2018-08-24 15:41] VITALS: BP 127/75; TEMP 98.7
== END 2018-08-24 15:41 | disposition home or self-care (01) ==
LOC: ONC/OP 09:18
PROVIDERS: ATTEND Internal Medicine Hematology & Oncology
DX: Z51.11 Encounter for antineoplastic chemotherapy (principal); C50.412 Malignant neoplasm of upper-outer quadrant of left female breast
CPT/HCPCS: 96375; 96413; 96417; G9022; J1642; J2405; J7050; J9264

== ENCOUNTER 2018-09-01 10:05 | Day surgery (SDC) | payer OTHER ==
[~2018-09-01 10:05] MED LIST changes: -ATEZOLIZUMAB 840 MG in Sodium Chloride 0.9% 250 ML 250 ML IV SCH
[2018-09-01] MEDS ORDERED: Sodium Chloride 0.9% 20 ML ONE (10:30)
[2018-09-01 11:54] VITALS: BP 130/45; TEMP 99
== END 2018-09-01 11:56 | disposition home or self-care (01) ==
LOC: ONC/OP 10:05
PROVIDERS: ATTEND Internal Medicine Hematology & Oncology
DX: Z51.12 Encounter for antineoplastic immunotherapy (principal); C50.412 Malignant neoplasm of upper-outer quadrant of left female breast
CPT/HCPCS: 96375; 96413; J1642; J2405

== ENCOUNTER 2018-09-08 11:14 | Day surgery (SDC) | payer OTHER ==
[~2018-09-08 11:14] MED LIST changes: +ATEZOLIZUMAB 840 MG in Sodium Chloride 0.9% 250 ML 250 ML IV SCH
[2018-09-08] MEDS ORDERED: Sodium Chloride 0.9% 20 ML ONE (11:44)
[2018-09-08 11:58] VITALS: BP 129/77; TEMP 98
== END 2018-09-08 15:54 | disposition home or self-care (01) ==
LOC: ONC/OP 11:14
PROVIDERS: ATTEND Internal Medicine Hematology & Oncology
DX: Z51.12 Encounter for antineoplastic immunotherapy (principal); C50.412 Malignant neoplasm of upper-outer quadrant of left female breast
CPT/HCPCS: 96375; 96413; 96417; J1642; J2405

== ENCOUNTER → 2018-09-22 | Day surgery (SDC) | payer SELFPAY ==
[~2018-09-22] MED LIST changes: +Sodium Chloride 0.9% 20 ML ONE
[2018-09-22 15:03] VITALS: BP 130/82; TEMP 98.2
== END ==
LOC: ONC/OP 13:59
PROVIDERS: ATTEND Internal Medicine Hematology & Oncology
DX: Z51.12 Encounter for antineoplastic immunotherapy (principal); C50.412 Malignant neoplasm of upper-outer quadrant of left female breast
CPT/HCPCS: 96375; 96413; 96417; J1642; J2405

== ENCOUNTER 2018-09-29 17:57 | Inpatient (IN) | payer SELFPAY ==
[~2018-09-29 17:57] MED LIST changes: -ADMIXTURE FEE IVPB SCH; -ATEZOLIZUMAB 840 MG in Sodium Chloride 0.9% 250 ML 250 ML IV SCH; +ISOVUE-370 76%-LOCM 1 ML ONE; -Ondansetron 2MG/ML MDV 10 MG in Sodium Chloride 0.9% 50 ML IVP SCH; -PACLITAXEL PROTEIN BOUND IVPB SCH; -Sodium Chloride 0.9% 20 ML ONE
[2018-09-29 18:36] LABS: #Lymphocytes 0.7 thou/uL (1.20-3.40); #Monocytes 0.5 thou/uL (0.11-0.59); #Neutrophils 5.6 thou/uL (1.40-6.50); %Basophils 0.4 % (0.0-1.0); %Eosinophils 0.7 % (0.0-10.0); %Lymphocytes 9.8 % (21.0-51.0); %Monocytes 6.7 % (0.0-10.0); %Neutrophils 82.3 % (42.0-75.0); Hemoglobin 12.2 g/dL (12.0-16.0); Mean Corpuscular HGB CONC 33.5 g/dL (32.0-36.0); Mean Corpuscular Hemoglobin 29.2 pg (27.0-31.0); Mean Corpuscular Volume 87.2 fL (78.0-98.0); Mean Platelet Volume 6.9 fL (7.4-10.4); Platelet Count 413 thou/uL (130-400); Red Blood Cell (RBC) Count 4.18 mill/uL (4.20-5.40); White Blood Cell (WBC) Count 6.8 thou/uL (4.8-10.8)
[2018-09-29 19:04] LABS: ALT (SGPT) 28 U/L (8-55); AST (SGOT) 27 U/L (5-34); Albumin 3.9 g/dL (3.5-5.0); Alkaline Phosphatase 106 U/L (40-150); Anion Gap 14 mmol/L (10-20); BUN (Urea Nitrogen) 6 mg/dL (7.0-18.7); Bilirubin, Total 0.3 mg/dL (0.2-1.2); Calc. Creatinine Clearance 0 mL/min (70-130); Carbon Dioxide 24 mmol/L (22-29); Chloride 104 mmol/L (98-107); Estimated GFR-MDRD Greater than 90; Glucose 109 mg/dL (70-105); Potassium 3.6 mmol/L (3.5-5.1); Protein, Total 6.9 g/dL (6.0-8.3); Sodium 138 mmol/L (136-145)
--- NOTE | 2018-09-29 19:40 | RAD ---
CHEST ONE VIEW: 09/29/18 COMPARISON: 09/29/18 at 1:27 p.m. HISTORY: Cough. Chemotherapy patient. Breast cancer. FINDINGS: Persistent complete opacification of the left hemithorax with rightward deviation of the cardiomedias tinal silhouette. Possibility of a large left sided pleural effusion cannot be excluded. The degree o f opacification has not significantly changed. Stable aeration of the right lung. Stable Port-A-Cath. IMPRESSION: Complete opacification left hemithorax, presumed to be due to a large left sided pleural effusion. POS: PPP
[2018-09-29 20:08] LABS: BHCG - Serum Negative (NEGATIVE); Pregs Control Background? CLEAR/WHITE (CLR/WHITE); Pregs Control Bar Appear? YES (CONTROL BAR)
[2018-09-29] MEDS ORDERED: Acetaminophen 500 MG TAB ONE (21:09)
[2018-09-29] MEDS ORDERED: Piperacillin/Tazobactam 4.5 GM VIAL ONE (21:09)
--- NOTE | 2018-09-29 21:17 | CT ---
CHEST CT WITH CONTRAST ABDOMEN CT WITH CONTRAST PELVIC CT WITH CONTRAST: 09/29/18 COMPARISON: 02/21/17. HISTORY: Infection. Elevated white blood cell count. Fluid in the lungs. Patient is undergoing chemotherapy fo r breast cancer. FINDINGS: CHEST CT: There is a large left sided pleural effusion with complete consolidation of the left lung. Patient ma y benefit from a large bore chest tube to remove the pleural fluid. There is rightward deviation of t he cardiomediastinal silhouette. There is adequate aeration of the right lung. No mediastinal mass, lymphadenopathy, or hematoma. Heart size is within normal limits. No significant pericardial fluid. The visualized aorta has a normal caliber. No periaortic fat stranding. There is extensive lymphadenopathy in the right axilla. Conglomeration of enlarged lymph nodes measur es 3.7 x 2.5 cm. There is evidence of extensive anasarca throughout the entire chest, abdomen, pelvis , soft tissues. There is evidence of edema involving the left upper extremity. There may be narrowing or possible occlusion of the left brachiocephalic vein. Limited and incomplete evaluation. There hamilton s appear to be some abnormal hypoattenuation in the anterior mediastinum without discrete mass. Nonspecific lymph node in the left hemithorax measuring 1.1 x 0.9 cm. There is asymmetric edema involving the left chest wall musculature without discrete abscess. ABDOMEN CT: Liver, spleen, pancreas, and adrenal glands have appropriate attenuation and enhancement. Portal vein is patent. Gallbladder is surgically absent. Symmetric enhancement of the kidneys. Bilaterally, no obstructive uropathy. No mesenteric mass, lymphadenopathy, free air or free fluid. Symmetric enhancement of the kidneys. Bilaterally, no obstructive uropathy. Limited evaluation of the alimentary canal by the lack of oral contrast. No evidence of bowel obstruc tion. Ileocecal junction is unremarkable. Normal caliber appendix. Scattered fecal material in a nond istended, nondilated colon. Occasional diverticulum. No diverticulitis. CT PELVIS: Small amount of free fluid in the pelvis which may be physiologic. Uterus and left adnexa is unremark able. There is a hyperdense focus in the right adnexa, presumed to be of ovarian origin measuring 3.8 x 3.5 cm. Findings are similar to a previous CT. The possibility of an adnexal lesion, likely repres enting a complex ovarian cyst may be present. This lesion has decreased in size from 02/21/17 at which time it measured 6.7 x 5.1 cm. Unremarkable urinary bladder. No pelvic mass, lymphadenopathy, free a ir or free fluid. Enlarged left inguinal lymph node measuring 1.8 x 1.0 cm. Second enlarged left ing uinal lymph node measuring 1.7 x 1.3 cm. OSSEOUS STRUCTURES: There are no lytic or blastic lesions in the osseous structures. IMPRESSION: 1. Diffuse anasarca. 2. Enlarged right axillary lymph nodes and left inguinal nodes which are presuming metastatic. 3. Large left sided pleural effusion with essential complete collapse of the left lung. There is associated rightward deviation of the cardiomediastinal silhouette, secondary to aforementioned pleu ral effusion. Possible occlusion or severe stenosis of the left brachiocephalic vein, incompletely ev aluated. POS: PPP
[2018-09-29] MEDS ORDERED: Acetaminophen 325 MG TAB PO PRN (22:30)
[2018-09-29] MEDS ORDERED: Furosemide 40 MG/4 ML VIAL SLOW IVP SCH (22:30)
[2018-09-29] MEDS ORDERED: Acetaminophen 650 MG Suppository PR PRN (22:30)
[2018-09-29] MEDS ORDERED: Ondansetron ODT 4 MG TAB PO PRN (22:30)
[2018-09-30 00:05] VITALS: BMI 40.9
--- NOTE | 2018-09-30 00:52 | HP ---
PRIMARY CARE DOCTOR: The patient has no PCP. CODE STATUS: Full code. TIME OF EVALUATION: 10 p.m. CHIEF COMPLAINT: Skin redness and shortness of breath. HISTORY OF PRESENT ILLNESS: This is a 33 years old female patient with very unfortunate history of having invasive ductal carcinoma since 2017. The patient had been through all treatment with chemo, radiation, and surgery. Dr. Myers has been following here as outpatient. The patient has recurrence of the cancer this year and the patient has been having nonhealing ulcers on the left breast close to the area where she had mastectomy, receiving some wound care. The patient has also been complaining that her skin around the lesion has been getting red and itchy and painful. She also has gained 11 pounds in the past week. The chest x-ray showed large pleural effusion with complete collapse of the left lung. CT chest demonstrated same findings. This is likely a malignant effusion. We will treat with antibiotics for possible cellulitis. We will consult Dr. Myers for any further recommendations and also Pulmonary to assist with therapeutic tap. I have explained the details that this is something that might recur in the near future. We will defer to Oncology for any further recommendation regarding prognoses, choices of care at this point. The symptoms are severe, triggered by cancer, no alleviating factors. REVIEW OF SYSTEMS: All systems were reviewed and negative except for the findings mentioned above. PAST MEDICAL HISTORY: Intraductal invasive ductal carcinoma. FAMILY HISTORY: Reviewed and noncontributory to current presentation. PSYCHIATRIC HISTORY: No previous psych history. SOCIAL HISTORY: No alcohol. No drugs. No smoking history. PHYSICAL EXAMINATION: VITAL SIGNS: On presentation, heart rate 118, respiratory rate was 24, oxygen saturation was 94, blood pressure 154/95, temperature 99.1. GENERAL APPEARANCE: The patient is in distress with increased respiratory rate and tachycardia, on home oxygen, edematous. HEENT: Eyes, normal conjunctivae. Moist oral mucosa. Anicteric. No JVD. RESPIRATORY: The patient has increased respiratory rate. The patient has complete left lung abolition of the sounds. Right lung sounds clean. CARDIOVASCULAR: The patient is tachycardic. Regular rate with displaced sounds to the right. There are no murmurs. CHEST: The patient has left side cancer and the chest wall has significant inflammation and nonhealing wounds. Also, the redness is spreading to the abdominal wall into the right breast wall with foul smelling with dirty drainage. ABDOMEN: Has skin red, normal bowel sounds. SKIN: As described above. MUSCULOSKELETAL/EXTREMITIES: The patient has bilateral leg edema. NEUROLOGIC: No evidence of any new focal weakness. Cranial nerves seems to be intact. DIAGNOSTIC STUDIES: EKG was reviewed. The patient has sinus tachycardia with sharp ER, low-voltage QRS, ventricular rate 109, CO 96, QRS 74, QT corrected 436. Chest x-ray was reviewed. The patient has complete opacification of the left hemithorax, presumed to be due to large left-sided pleural effusion. CT chest, abdomen, and pelvis was reported. The patient has diffuse anasarca, enlarged right axillary lymph nodes, and left inguinal nodes which are presumed to be metastatic. Large left-sided pleural effusion with essential complete collapse of the left lung. There is associated rightward deviation of the cardiomediastinal silhouette secondary to formation of pleural effusion, possible occlusion of severe stenosis of the left brachiocephalic vein, incompletely evaluated. LABORATORY DATA: Reviewed. The patient has a white count 6.8, hemoglobin 12.2, MCV 87.2, platelet count 213. Chemistry; sodium 138, potassium 3.6, chloride 104, carbon dioxide 24, anion gap 14, BUN 6, creatinine 0.71, GFR greater than 90, glucose 109, lactic acid 1.3, calcium 9.0. LFTs were negative, and test was negative. ASSESSMENT AND PLAN: The patient will be placed in the hospital with following medical problems; 1. Stage IV breast cancer. Dr. Myers has been following this patient as outpatient, will be consulted for any further recommendation regarding treatment/management hospice consideration or palliative care. 2. Large pleural effusion on the left side with complete collapse of the left lung. We will call Pulmonary for consideration of therapeutic tap that might be the symptoms of the patient. However, I have discussed with the patient that this might be recurrent due to the cancer. 3. Anasarca. This is likely secondary to malignancy. The patient has significant subcutaneous edema and also pleural effusion. We will start her on some diuretics, lung tap if agreeable by Pulmonary. 4. Possible sepsis. The patient has old infected wounds. The patient has tachycardia, no fever. The patient has tachypnea, maybe underlying sepsis. The patient has been started on broad-spectrum antibiotics that we will continue for now. Follow cultures. Adjust as per sensitivity. 5. The patient is immunocompromised given history of cancer and also being on chemo as reported by patient. The patient is at high risk of complication from sepsis. We will monitor closely. 6. Deep venous thrombosis prophylaxis. Job ID: [id number]
[2018-09-30] MEDS: Vancomycin HCl 1 GM in Premix Bag 1 BAG IVPB SCH ×2 (03:39→12:25)
[2018-09-30 06:09] LABS: #Eosinphils 0.1 thou/uL (0.0-0.7); #Lymphocytes 0.6 thou/uL (1.20-3.40); #Monocytes 0.5 thou/uL (0.11-0.59); %Eosinophils 1.6 % (0.0-10.0); %Lymphocytes 9.8 % (21.0-51.0); %Monocytes 7.5 % (0.0-10.0); %Neutrophils 81.1 % (42.0-75.0); Hemoglobin 11.4 g/dL (12.0-16.0); Mean Corpuscular HGB CONC 33.8 g/dL (32.0-36.0); Mean Corpuscular Hemoglobin 29.5 pg (27.0-31.0); Mean Corpuscular Volume 87.2 fL (78.0-98.0); Mean Platelet Volume 6.9 fL (7.4-10.4); Platelet Count 354 thou/uL (130-400); Red Blood Cell (RBC) Count 3.86 mill/uL (4.20-5.40); White Blood Cell (WBC) Count 6.2 thou/uL (4.8-10.8)
[2018-09-30] MEDS: Furosemide 40 MG/4 ML VIAL SLOW IVP SCH ×2 (06:09→15:33)
[2018-09-30] MEDS: Piperacillin/Tazobactam 4.5 GM in Sodium Chloride 0.9% 100 ML IVPB SCH ×3 (06:09→22:00)
[2018-09-30 06:31] LABS: Anion Gap 14 mmol/L (10-20); BUN (Urea Nitrogen) 8 mg/dL (7.0-18.7); Calc. Creatinine Clearance 207 mL/min (70-130); Calcium 8.4 mg/dL (7.8-10.44); Carbon Dioxide 24 mmol/L (22-29); Chloride 103 mmol/L (98-107); Estimated GFR-MDRD Greater than 90; Glucose 96 mg/dL (70-105); Potassium 3.9 mmol/L (3.5-5.1); Sodium 137 mmol/L (136-145)
[2018-09-30] MEDS: Morphine ER 30 MG TAB PO PRN ×2 (08:51→20:41)
[2018-09-30] MEDS ORDERED: Prevnar 13-Val Conj/PF 0.5 ML SYRINGE IM ONE (09:00)
--- NOTE | 2018-09-30 10:51 | RAD ---
Exam: Chest one view HISTORY:History of cough, infection, recent thoracentesis Comparison: Radiograph of chest previous day FINDINGS: Lungs: Interval decrease of opacity of the left hemithorax with hazy opacification of the partially a erated left upper lung Cardiac silhouette:Obscured, although does appear enlarged Right chest port remains. Pleural Spaces: Interval decrease of moderate to large left pleural effusion, status post thoracentes is. Pneumothorax: None Osseous abnormalities: None of acuity. IMPRESSION: Status post left thoracentesis with interval decrease in volume of moderate to large left effusion. There is added density of the partially aerated left upper lung zone. Continued follow-up is recommended.
[2018-09-30 11:08] LABS: Pleural Fluid, Amylase Less than 30 U/L (Not Available); Pleural Fluid, Glucose 62 mg/dL; Pleural Fluid, LDH 1167 U/L (Not Available); Pleural Fluid, Protein 3.5 g/dL
--- NOTE | 2018-09-30 11:30 | EKG ---
Test Reason : Blood Pressure : / mmHG Vent. Rate : 109 BPM Atrial Rate : 109 BPM P-R Int : 096 ms QRS Dur : 074 ms QT Int : 324 ms P-R-T Axes : 032 062 044 degrees QTc Int : 436 ms Sinus tachycardia with short DC Low voltage QRS Borderline ECG Confirmed by LINDA MCCONNELL D.O. ([id number]), city editor WAYNE [place] ([id number]) on 09/30/2018 11:29:27 AM Referred By: Confirmed By:LINDA MCCONNELL D.O.
[2018-09-30 11:47] LABS: RBC Count-Automated (BF) 53670 /cumm; WBC/Nucleated-Auto (BF) 403 /cumm
[2018-09-30 12:03] LABS: BF Color Red; Body Fluid Source Thoracentesis Fluid; Clarity Hazy (Clear)
[2018-09-30 13:28] LABS: BF Segmented Neutrophils 11 %; Cell Count Non Hematic 29 %; Lymphocytes 60 %
--- NOTE | 2018-09-30 14:00 | CON ---
DATE OF CONSULTATION: REASON FOR CONSULTATION: Breast cancer. HISTORY OF PRESENT ILLNESS: A 33-year-old female with history of stage IIIA triple negative breast cancer status post chemotherapy and surgery, now with recurrent disease in the left chest wall, currently on Abraxane and Tecentriq chemotherapy last received yesterday September 29, 2018, presenting to the hospital with shortness of breath. The patient came into the clinic and received chemotherapy, was complaining of shortness of breath. So, I sent her for a chest x-ray that showed complete opacification of the left lung and so, I advised her to go into the hospital and she was subsequently admitted to the ICU. She had a CT chest, abdomen, and pelvis, which showed diffuse anasarca and a large left-sided pleural effusion with essential complete collapse of the left lung with an associated rightward deviation of the cardiomediastinal silhouette. In addition to enlarged right axillary lymph nodes and left inguinal nodes and an ovarian cyst. Of note, she has extensive chest wall and skin involvement of her cancer that is very malodorous. REVIEW OF SYSTEMS: Ten-point review of systems negative except as per HPI. PAST MEDICAL HISTORY: Breast cancer. FAMILY HISTORY: Gastric cancer in her father. PAST SURGICAL HISTORY: Left mastectomy and MediPort placement. SOCIAL HISTORY: No smoking, alcohol, or drugs. She is [place]-speaking. PHYSICAL EXAMINATION: VITAL SIGNS: Temperature 97.3, pulse 106, blood pressure 165/127 with a MAP of 139, and saturating 97% on room air. GENERAL APPEARANCE: The patient is lying in bed, sitting up in no acute distress. Appears comfortable. HEENT: Normocephalic and atraumatic. NECK: Supple. Bandages over the left chest wall. RESPIRATIONS: Decreased breath sounds in the left lung marie, lower more so than upper. Respirations are nonlabored. CARDIOVASCULAR: Tachycardia. No murmurs, rubs, or gallops are noted. SKIN: Extensive left chest wall involvement by her breast cancer. NEUROLOGIC: Cranial nerves 2 through 12 are grossly intact. PSYCHIATRIC: She is awake, alert, and oriented x3. LABORATORY DATA: White blood cell 6.2, hemoglobin 11.4, and platelets 354. Sodium 137, potassium 3.9, BUN 8, creatinine 0.62, glucose 96, and lactic acid 1.3. BNP 18.9. IMAGING DATA: CT chest, abdomen, and pelvis dated September 29, 2018, shows a large left-sided pleural effusion with complete consolidation of the left lung with rightward deviation of the cardiomediastinal silhouette. Extensive lymphadenopathy in the right axilla with a conglomeration measuring 3.7 x 2.5 cm and extensive anasarca throughout the entire chest, abdomen, pelvis, and soft tissues and edema involving the left upper extremity. There is also a mildly enlarged left inguinal to left inguinal lymph nodes. ASSESSMENT AND PLAN: A 33-year-old female with recurrent triple negative breast cancer with extensive left anterior chest wall involvement and large left-sided pleural effusion. She has received drainage of her pleural effusion today by Dr. Mccurdy and she states that her breathing has much improved and there is currently a plan for a drain to be placed tomorrow. Her extensive chest wall involvement is very malodorous and current bacterial culture has been sent showing gram-negative rods and Staph aureus and she has currently been placed on vancomycin and Zosyn. Recommend management of her pleural effusion as per Dr. Mccurdy and continue antibiotics while following up pending cultures. She is not neutropenic from her chemotherapy and does not need Neulasta or Neupogen at this time. Thank you for this consult. Job ID: [id number]
--- NOTE | 2018-09-30 14:45 | PDOC.HOSPP ---
- Subjective Encounter Date: 09/30/18 Encounter Time: 11:15 Subjective: pt up in bed no complains - Objective Vital Signs & Weight: Vital Signs (12 hours) Temp Pulse Ox 09/30/18 08:11 97 09/30/18 07:22 97.3 F L 09/30/18 04:00 97.5 F L Weight Admit Weight 224 lb Weight 224 lb Most Recent Monitor Data Heart Rate from ECG 106 NIBP 165/127 NIBP BP-Mean 139 Respiration from ECG 20 SpO2 97 I&O: 09/29/18 09/30/18 10/01/18 06:59 06:59 06:59 Intake Total 60 Output Total 2800 Balance -2740 Result Diagrams: 09/30/18 05:59 09/30/18 05:59 ROS - Review of Systems Cardiovascular: denies: chest pain, palpitations, orthopnea, paroxysmal noc. dyspnea, edema, light headedness, other Gastrointestinal: denies: nausea, vomitting, abdominal pain, diarrhea, constipation, melena, hematochezia, other Genitourinary: denies: dysuria, frequency, incontinence, hematuria, retention, other - Medication Medications: Active Medications Generic Name Dose Route Start Last Admin Trade Name Freq PRN Reason Stop Dose Admin Furosemide 40 mg 09/30/18 06:00 09/30/18 06:09 Lasix SLOW IVP 40 mg 0600,1400 KATELYN Administration Piperacillin Sod/Tazobactam 100 mls @ 200 mls/hr 09/30/18 06:00 09/30/18 06: 09 Sod 4.5 gm/ Sodium Chloride IVPB 100 mls Q8HR KATELYN Administration Vancomycin HCl 1 gm/ Device 200 mls @ 200 mls/hr 09/30/18 04:00 09/30/18 12: 25 IVPB 200 mls 0400,1200,2000 KATELYN Administration Morphine Sulfate 60 mg 09/30/18 01:51 09/30/18 08:51 Ms Contin PO 60 mg Q12H PRN Administration Severe Pain (7-10) Sodium Chloride 10 ml 09/30/18 09:00 09/30/18 08:53 Flush - Normal Saline IVF 10 ml Q12HR KATELYN Administration - Exam Heart: negative: RRR, no murmur, no gallops, no rubs, normal peripheral pulses, irregular, diminshed peripheral pulses, murmur present, II/IV, III/IV Respiratory: negative: CTAB, no wheezes, no rales, no ronchi, normal chest expansion, no tachypnea, normal percussion, rales, rhonchi, tachypneic, wheezes Gastrointestinal: negative: soft, non-tender, non-distended, normal bowel sounds , no palpable masses, no hepatomegaly, no splenomegaly, no bruit, no guarding, no rigidity, tender to palpation, distended, diminished bowl sounds, voluntary guarding Musculoskeletal - other findings: swelling in left upper ext and right lower ext Hosp A/P (1) Pleural effusion Code(s): J90 - PLEURAL EFFUSION, NOT ELSEWHERE CLASSIFIED Status: Acute (2) Invasive ductal carcinoma of breast Code(s): C50.919 - MALIGNANT NEOPLASM OF UNSP SITE OF UNSPECIFIED FEMALE BREAST Status: Acute Qualifiers: Laterality: left Qualified Code(s): C50.912 - Malignant neoplasm of unspecified site of left female breast (3) Acute respiratory failure Code(s): J96.00 - ACUTE RESPIRATORY FAILURE, UNSP W HYPOXIA OR HYPERCAPNIA Status: Acute - Plan pt underwent thoracentesis of her left chest 2L. studies sent. will continue abx since her skin cx indicated staph. will get bilateral lower ext doppler and left upper ext doppler. wound care consulted.
[2018-09-30] MEDS: HYDROcodone/Acetaminophen 10/325 mg Tablet PO PRN (15:38)
[2018-09-30 19:29] LABS: Vancomycin, Trough 11.5 ug/mL
[2018-09-30] MEDS: Melatonin 3 MG TAB PO PRN (20:41)
[2018-09-30] MEDS: Vancomycin HCl 1.25 GM in Sodium Chloride 0.9% 250 ML 250 ML IVPB SCH (20:41)
--- NOTE | 2018-09-30 23:25 | ULT ---
EXAM: Bilateral lower extremity venous Doppler HISTORY: Resolution of the swelling/edema. Patient currently on chemotherapy secondary to breast cancer. FINDINGS: Grayscale, color-flow, Doppler evaluation, spectral analysis of the bilateral lower extremities venou s structures is performed with 2-D imaging. The bilateral common femoral, superficial femoral, popliteal, posterior tibial, proximal greater saphenous and profunda femoral veins are imaged. There is normal luminal compressibility, flow, and augmentation in the visualized deep venous structu res of the bilateral lower extremities. IMPRESSION: No evidence of a deep vein thrombosis in the visualized deep venous structures bilateral lower extrem ities.
--- NOTE | 2018-09-30 23:32 | ULT ---
EXAM: Left upper extremity venous Doppler HISTORY: Left upper extremity swelling and edema, and patient is currently undergoing chemotherapy secondary t o breast cancer. FINDINGS: Grayscale, color-flow, Doppler evaluation, spectral analysis of the left upper extremity venous struc tures is performed with 2-D imaging. The left internal jugular and subclavian veins are unable to be visualized. Due to extensive edema, g rayscale imaging is unable to identify the left upper extremity venous structures which limits evaluation for nonocclusive DVT. Doppler evaluation does suggest that there is flow within the left a xillary and brachial veins. There is also flow demonstrated within the left upper extremity basilic and cephalic veins noted on color flow evaluation. IMPRESSION: Very limited evaluation of the left upper extremity venous structures due to significant edema within the left upper extremity. The left internal jugular vein and subclavian veins are not visualized. Left axillary and brachial veins are also not identified, but Doppler evaluation does demonstrate randy ous waveforms in the expected locations of the left axillary and brachial veins. A nonocclusive DVT could not be excluded.
[2018-10-01] MEDS: Vancomycin HCl 1.25 GM in Sodium Chloride 0.9% 250 ML 250 ML IVPB SCH ×3 (03:31→20:20)
[2018-10-01] MEDS: HYDROcodone/Acetaminophen 10/325 mg Tablet PO PRN ×2 (03:35→20:21)
[2018-10-01] MEDS: Piperacillin/Tazobactam 4.5 GM in Sodium Chloride 0.9% 100 ML IVPB SCH (05:56)
[2018-10-01] MEDS: Furosemide 40 MG/4 ML VIAL SLOW IVP SCH ×2 (05:57→14:33)
[2018-10-01] MEDS: Saccharomyces boulardii 250 MG CAP PO SCH (08:44)
[2018-10-01] MEDS ORDERED: Ciprofloxacin 500 MG TAB PO SCH (09:15)
--- NOTE | 2018-10-01 09:41 | PRG ---
DATE OF SERVICE: 10/01/2018 SUBJECTIVE: This morning, she is better, less short of breath. OBJECTIVE: VITAL SIGNS: Oxygen saturation 91% on 1 L, temperature 98, pulse rate 80, respiratory rate 16. CHEST: Decreased breath sounds without any wheezing. CARDIAC: Normal S1, S2. No gallops. ABDOMEN: No masses. IMPRESSION: 1. Metastatic breast cancer. 2. Massive pleural effusion, bloody. 3. MRSA, severe, mostly in the chest wall, probably colonization. PLAN: Cipro has been initiated. Stop Zosyn. Probably start vancomycin tomorrow. Pleural catheter insertion tomorrow, home thereafter. Job ID: [id number]
--- NOTE | 2018-10-01 12:06 | PDOC.HOSPP ---
- Subjective Encounter Date: 10/01/18 Encounter Time: 12:03 Subjective: pt up in bed no complains - Objective Vital Signs & Weight: Vital Signs (12 hours) Temp Pulse Resp Pulse Ox 10/01/18 10:57 80 18 95 10/01/18 07:38 96 10/01/18 07:17 98.3 F 10/01/18 07:10 86 17 92 L 10/01/18 03:53 97.1 F L Weight Admit Weight 224 lb Weight 224 lb Most Recent Monitor Data Heart Rate from ECG 105 NIBP 132/85 NIBP BP-Mean 100 Respiration from ECG 21 SpO2 95 I&O: 09/30/18 10/01/18 10/02/18 06:59 06:59 06:59 Intake Total 60 820 Output Total 2800 580 Balance -2740 240 Result Diagrams: 09/30/18 05:59 09/30/18 05:59 ROS - Review of Systems Respiratory: denies: cough, dry, shortness of breath, hemoptysis, SOB with excertion, pleuritic pain, sputum, wheezing, other Cardiovascular: denies: chest pain, palpitations, orthopnea, paroxysmal noc. dyspnea, edema, light headedness, other Gastrointestinal: denies: nausea, vomitting, abdominal pain, diarrhea, constipation, melena, hematochezia, other - Medication Medications: Active Medications Generic Name Dose Route Start Last Admin Trade Name Freq PRN Reason Stop Dose Admin Hydrocodone Bitart/Acetaminophen 1 tab 09/29/18 22:25 10/01/18 03:35 [place] 10/325 PO 1 tab Q4H PRN Administration Moderate Pain (4-6) Albuterol/Ipratropium 3 ml 09/30/18 18:30 10/01/18 10:57 Duoneb NEB 3 ml Q7PR-TA KATELYN Administration Furosemide 40 mg 09/30/18 06:00 10/01/18 05:57 Lasix SLOW IVP 40 mg 0600,1400 KATELYN Administration Vancomycin HCl 1.25 gm/ Sodium 250 mls @ 250 mls/hr 09/30/18 20:00 10/01/18 03:31 Chloride IVPB 250 mls 0400,1200,2000 KATELYN Administration Melatonin 6 mg 09/30/18 19:33 09/30/18 20:41 Melatonin PO 6 mg HSPRN PRN Administration Insomnia Morphine Sulfate 60 mg 09/30/18 01:51 09/30/18 20:41 Ms Contin PO 60 mg Q12H PRN Administration Severe Pain (7-10) Saccharomyces Boulardii 250 mg 10/01/18 09:00 10/01/18 08:44 Florastor PO 250 mg DAILY KATELYN Administration Sodium Chloride 10 ml 09/30/18 09:00 10/01/18 08:46 Flush - Normal Saline IVF 10 ml Q12HR KATELYN Administration - Exam Neck: negative: supple, symmetric, no JVD, no thyromegaly, no lymphadenopathy, no carotid bruit, JVD Heart: negative: RRR, no murmur, no gallops, no rubs, normal peripheral pulses, irregular, diminshed peripheral pulses, murmur present, II/IV, III/IV Respiratory: negative: CTAB, no wheezes, no rales, no ronchi, normal chest expansion, no tachypnea, normal percussion, rales, rhonchi, tachypneic, wheezes Skin - other findings: left breast area covered with dressing Hosp A/P (1) Pleural effusion Code(s): J90 - PLEURAL EFFUSION, NOT ELSEWHERE CLASSIFIED Status: Acute (2) Invasive ductal carcinoma of breast Code(s): C50.919 - MALIGNANT NEOPLASM OF UNSP SITE OF UNSPECIFIED FEMALE BREAST Status: Acute Qualifiers: Laterality: left Qualified Code(s): C50.912 - Malignant neoplasm of unspecified site of left female breast (3) Acute respiratory failure Code(s): J96.00 - ACUTE RESPIRATORY FAILURE, UNSP W HYPOXIA OR HYPERCAPNIA Status: Acute - Plan pt underwent thoracentesis of her left chest 2L. studies sent. will continue abx since her skin cx indicated staph. will get bilateral lower ext doppler and left upper ext doppler. wound care consulted. 10/01 will consult ID for her polymicrobial swab. pt to get pleurx cath in am. her abx has been changed to cipro by pulm.
[2018-10-01] MEDS: Morphine ER 30 MG TAB PO PRN (14:37)
--- NOTE | 2018-10-01 17:30 | CON ---
DATE OF CONSULTATION: REASON FOR CONSULTATION: Evaluate the skin changes at previous mastectomy site with recurrence. HISTORY OF PRESENT ILLNESS: A 33-year-old history of breast cancer diagnosed in 2016, managed with surgical resection and chemoradiation therapy. It was a T3 N1 clinical stage. The patient had a port placed in the right subclavian location that is still in place at this time. In March 27, she had a gallstone pancreatitis and underwent ERCP with sphincterotomy. In March 27, she had a diagnosis of necrotizing pancreatitis and had a diagnostic laparoscopy, could not have cholecystectomy at that time. She underwent a left modified radical mastectomy on September 20, [address] Davies. She did relatively well until August this year when she noticed a nodularity with redness in the mastectomy site. This was diagnosed as a local recurrence and the patient has been receiving chemotherapy with Abraxane and a PD-1 checkpoint inhibitor, Tecentriq about once a week since August and the last treatment was on September 29. Subsequently, she developed dyspnea and was admitted. The chest x-ray demonstrated complete opacification of the left lung. The patient underwent a thoracentesis and the results of the fluid analysis are discussed below. The patient currently sitting up in bed. She appears in no distress. Dyspnea has improved after thoracentesis. No headaches. No shortness of breath, cough, or sputum production. No fever. No abdominal pain. Voiding without difficulty. No diarrhea. No joint symptoms or neurological symptoms. PAST MEDICAL HISTORY: T3 N1 ductal breast carcinoma status post chemoradiation and modified mastectomy in 2017, now with a local recurrence managed with Abraxane and a PD-1 checkpoint inhibitor. SOCIAL HISTORY: No smoking history. No alcoholic beverage use. FAMILY HISTORY: Noncontributory. ALLERGY HISTORY: No known drug allergies. CURRENT MEDICATION LIST: 1. Tylenol. 2. [place]. 3. DuoNeb. 4. Cipro. 5. Lasix. 6. Melatonin. 7. MS Contin. 8. Zofran. 9. Florastor. 10. Vancomycin. PHYSICAL EXAMINATION: VITAL SIGNS: T-max 98.7, blood pressure 125/91, respirations 25, pulse 86, and O2 saturation 92%. SKIN: Shows the areas of extensive skin necrosis at the site of the modified mastectomy left side. Surrounding it, there is areas of erythema in the nodular implantations, which likely represent a malignancy. The patient has a port in the right subclavian location with no inflammatory changes or tenderness. The patient is voiding spontaneously. There is evidence of lymphedema in the left upper extremity. HEENT: Ocular movements conjugate. Sclerae white. Pupils are equal. Oral cavity normal. Numerous teeth in place in very good shape. NECK: Supple. No jugular vein distention. LUNGS: With diminished breath sounds left hemithorax. No wheezing or crackles. HEART: S1 and S2. Regular rate without murmurs. No S3 or S4. ABDOMEN: Soft, not distended or tender. No ascites. No bladder distention. No organomegaly. No joint inflammatory activity. Trace edema in the lower extremities. 1+ dorsalis pedis. Normal cap refill. Plantar response are flexor. No clonus. Strength in the extremities is symmetric and preserved. Cognitive function appears to be intact. LABORATORY DATA: The thoracentesis fluid with 403 wbc's, 53,000 rbc's, 11% neutrophils, and 60% lymphocytes. Pathology is pending. Amylase less than 30, pleural glucose 62, LDH 1167, and total protein 3.5. Chemistry was normal except for mildly elevated glucose and white cell count of 6.2, hemoglobin 11.4, platelets 354 with 81% neutrophils. Microbiology, we have swab culture from the surface of the chest wall. MRSA, Pseudomonas aeruginosa, and presumptive Klebsiella Enterobacter. ASSESSMENT: 1. Locally recurrent breast cancer, currently on chemotherapy with Abraxane and PD-1 checkpoint inhibitor with development of areas of necrosis. 2. Large pleural effusion with possibility of malignant spread to the pleural space. 3. Concern with the skin changes and colonies retrieved from surface swab. DISCUSSION: The surface swab will necessarily be positive since it is not a sterile site. There might be some element of cellulitis associated, most of the changes are due to the malignancy plus the effects of the antineoplastic therapy with necrosis of the malignant cells by immunotherapy with cytotoxicity. We will not change the current antimicrobials. However, if there is no clear-cut decrease in erythema in the subsequent days, I would consider discontinuing antimicrobial therapy. PD-1 checkpoint inhibitors can be associated with increased rates of pneumonia, but her pleural fluid has a predominance of red cells and the pathology review will clarify further the possibility of metastases to the area. Job ID: [id number] [facility]
[2018-10-01 19:57] LABS: Vancomycin, Trough 17.8 ug/mL
[2018-10-01] MEDS: Ciprofloxacin 500 MG TAB PO SCH (20:20)
[2018-10-01] MEDS: Melatonin 3 MG TAB PO PRN (20:21)
[2018-10-02] MEDS: Vancomycin HCl 1.25 GM in Sodium Chloride 0.9% 250 ML 250 ML IVPB SCH ×3 (04:23→20:44)
[2018-10-02] MEDS: Saccharomyces boulardii 250 MG CAP PO SCH (06:15)
[2018-10-02] MEDS: Furosemide 40 MG/4 ML VIAL SLOW IVP SCH ×2 (06:15→15:59)
[2018-10-02] MEDS: Morphine ER 30 MG TAB PO PRN ×2 (06:36→18:02)
[2018-10-02] MEDS: Ciprofloxacin 500 MG TAB PO SCH ×2 (06:37→20:38)
--- NOTE | 2018-10-02 07:23 | OP ---
DATE OF PROCEDURE: 09/30/2018 PROCEDURE PERFORMED: Thoracentesis. INDICATION: Massive pleural effusion. DESCRIPTION OF PROCEDURE: After informed consent from the and the patient, the left posterior thorax was cleaned with chlorhexidine and 1% Xylocaine was infiltrated into the left 9th intercostal space in midscapular line, where the pleural cavity was entered in, and 20 mL of bloody effusion was removed. Thereafter using an H1 catheter, a total of 2 L of bloody effusion was removed. She had cough as usual on the date of the procedure. Pleural effusion was sent for appropriate studies including cytology. The patient otherwise tolerated the procedure well. Job ID: [id number]
--- NOTE | 2018-10-02 07:57 | CON ---
DATE OF CONSULTATION: HISTORY OF PRESENT ILLNESS: Kianna Sanders is a 33-year-old female, who speaks no Wolof, presented to the hospital with shortness of breath and ulcer on left chest. She is status post mastectomy in September 2017. She has metastatic breast cancer, undergoing chemotherapy and radiation. She is a local oncologist. She had some difficulty breathing yesterday and presented, x-ray shows massive left pleural effusion. Nonsmoker. No coughing. No wheezing. No chest pain. No weight loss. PAST MEDICAL HISTORY: Left breast cancer followed by recurrent disease of chest wall, extensive ulceration of the left chest wall. PAST SURGICAL HISTORY: Mastectomy, cholecystectomy, right MediPort. SOCIAL HISTORY: No alcohol or tobacco abuse. She lives with her . She is getting morphine for pain relief. HOME MEDICINE: Only pain medication. Since admission, started on vancomycin and Zosyn. REVIEW OF SYSTEMS: Negative. PHYSICAL EXAMINATION: GENERAL: Very pleasant, female, surprisingly appears to be in no distress. VITAL SIGNS: Saturations are 97 on room air, temperature 97, blood pressure 147/122. LUNGS: extensive ulceration involving pretty much the entire left chest wall decreased breath sounds. No wheezing. Right lung, unremarkable. CARDIAC: Normal S1 and S2. No gallops. ABDOMEN: Soft. LABORATORY DATA: White count 6000, hemoglobin and hematocrit 11 and 33, platelet count is 354. Chemistries normal. Albumin is 3.9. Lytes are normal. There is Staph aureus on apparently the chest wall area. X-ray shows complete opacity of the left lung. Decreased anasarca. Lytic blastic lesion in the osseous structures. Right axillary adenopathy, left pleural effusion. PLAN: Thoracentesis will be performed for comfort care. I will consider the CV Surgery to put an indwelling catheter for long-term drainage purposes. Further options and treatment as per Oncology. Prognosis is guarded. This is a consultation note followed by thoracentesis note. Consultation note, 70 minutes, 50% direct patient care. Job ID: [id number]
[2018-10-02] MEDS ORDERED: Fentanyl 100 MCG/2 ML VIAL ONE (09:13)
[2018-10-02] MEDS ORDERED: Midazolam HCl 2 mg/2 ml Vial ONE (09:14)
[2018-10-02] MEDS ORDERED: Bupivacaine/Epinephrine 0.25% 30 ML VIAL ONE (09:17)
--- NOTE | 2018-10-02 09:26 | PRG ---
DATE OF SERVICE: 10/02/2018 SUBJECTIVE: Juan M Sanders this morning in no distress. OBJECTIVE: VITAL SIGNS: Saturations 98% on room air, pulse 111, respiratory rate 20, blood pressure 103/63. CHEST: Decreased breath sounds. No wheezing. CARDIAC: Normal S1, S2. No gallops. ABDOMEN: No masses. IMPRESSION: 1. Superficial foot infection with MRSA and Pseudomonas, probably colonization. 2. Massive pleural effusion, status post thoracentesis, probably metastatic disease. PLAN: We are awaiting path report. We are awaiting pleural catheter insertion. We will follow. Job ID: [id number]
[2018-10-02] MEDS: HYDROcodone/Acetaminophen 10/325 mg Tablet PO PRN ×4 (11:21→23:25)
--- NOTE | 2018-10-02 12:18 | RAD ---
CHEST 1 VIEW: Date: 10/02/18 COMPARISON: 09/29/18. HISTORY: Pleural catheter placement. FINDINGS: In comparison to the 09/29/18 study, there has been definite improvement to the left lung opacificati on, now aerated lung is visualized. The catheter is seen, it is seen along the medial aspect of the c hest with the tip in the left lung apex. Right-sided MediPort catheter remains in place. Right lung i s clear. IMPRESSION: Placement of a left-sided pleural catheter with improved aeration to the left lung. POS: [facility]
--- NOTE | 2018-10-02 12:35 | OP ---
DATE OF PROCEDURE: 10/02/2018 PREOPERATIVE DIAGNOSIS: Malignant pleural effusion, left, with open ulcerating breast cancer. PROCEDURE PERFORMED: Left PleurX catheter. ANESTHESIA: IV sedation with local. DESCRIPTION OF PROCEDURE: After the patient was placed in about a 45 left lateral decubitus position, she was prepped and draped. Betadine-impregnated drape was used to secure the towels, and following this, lidocaine was used to infiltrate the skin at the proposed entry site. Needle aspirated some serosanguineous fluid. Following which, a skin incision was made and the Angiocath was inserted. Due to her severe edema and malignancy, I could not actually palpate ribs with my finger. Catheter entered, pleural fluid obtained, and a wire inserted. The counter incision was then made for the exit site after further lidocaine and Marcaine infiltration and then the catheter was tunneled between the 2 incisions. Dilator and peel-away sheath were placed and the catheter was then advanced through the peel-away sheath ensuring it lie nicely. A 1500 mL of fluid was removed and stopped with coughing paroxysms. The wounds were closed and dressed, and the patient is to be taken to the recovery room. Job ID: [id number]
[2018-10-02] MEDS ORDERED: PROPOFOL 200 MG/20 ML VIAL ONE (13:43)
--- NOTE | 2018-10-02 16:02 | PDOC.MOPN ---
Interval History: breathing improved, pain not controlled. - Vital Signs Vital Signs: Vital Signs (12 hours) Temp Pulse Resp Pulse Ox 10/02/18 11:12 97.2 F L 10/02/18 08:00 96 10/02/18 07:50 111 H 20 98 Weight Admit Weight 224 lb Weight 224 lb Most Recent Monitor Data Heart Rate from ECG 113 NIBP 135/87 NIBP BP-Mean 103 Respiration from ECG 23 SpO2 92 - Physical Exam General: Alert HEENT: Atraumatic Lungs: Normal air movement Cardiovascular: Regular rate Abdomen: Normal bowel sounds Extremities: Other Skin: No breakdown (breakdown of left chest wall. Right breast mass) Neurological: Normal gait Psych/Mental Status: Mental status NL - Labs Result Diagrams: 09/30/18 05:59 09/30/18 05:59 Lab results: Laboratory Results - last 24 hr 10/01/18 19:27: Vancomycin Trough 17.8 09/30/18 10:30: Fluid Diff Path Review Status: lab reviewed by me A/P - Problem (1) Pleural effusion Current Visit: Yes Code(s): J90 - PLEURAL EFFUSION, NOT ELSEWHERE CLASSIFIED Status: Acute (2) Invasive ductal carcinoma of breast Current Visit: No Code(s): C50.919 - MALIGNANT NEOPLASM OF UNSP SITE OF UNSPECIFIED FEMALE BREAST Status: Acute Qualifiers: Laterality: left Qualified Code(s): C50.912 - Malignant neoplasm of unspecified site of left female breast - Plan Plan: Adjust pain medication to home dose. Pleurx cath training. Discussed hospice and treatments at length. She does not want to stop fighting. Wants opinion from [facility].
[2018-10-02] MEDS ORDERED: Ketorolac Tromethamine 30 MG/ML VIAL IVP PRN (16:03)
[2018-10-02] MEDS: Ondansetron PF 4 MG/2 ML Vial IVP PRN (19:27)
--- NOTE | 2018-10-02 19:29 | PDOC.HOSPP ---
- Subjective Encounter Date: 10/02/18 Encounter Time: 12:30 Subjective: pt up in bed complains of some pain to her left breast site area - Objective Vital Signs & Weight: Vital Signs (12 hours) Temp Pulse Resp Pulse Ox 10/02/18 18:33 103 H 20 93 L 10/02/18 16:00 96.8 F L 10/02/18 11:12 97.2 F L 10/02/18 08:00 96 10/02/18 07:50 111 H 20 98 Weight Admit Weight 224 lb Weight 224 lb Most Recent Monitor Data Heart Rate from ECG 111 NIBP 133/99 NIBP BP-Mean 110 Respiration from ECG 8 SpO2 94 I&O: 10/01/18 10/02/18 10/03/18 06:59 06:59 06:59 Intake Total 820 860 620 Output Total 580 600 Balance 240 260 620 Result Diagrams: 09/30/18 05:59 09/30/18 05:59 ROS - Review of Systems Cardiovascular: denies: chest pain, palpitations, orthopnea, paroxysmal noc. dyspnea, edema, light headedness, other Gastrointestinal: denies: nausea, vomitting, abdominal pain, diarrhea, constipation, melena, hematochezia, other Genitourinary: denies: dysuria, frequency, incontinence, hematuria, retention, other - Medication Medications: Active Medications Generic Name Dose Route Start Last Admin Trade Name Freq PRN Reason Stop Dose Admin Hydrocodone Bitart/Acetaminophen 1 tab 09/29/18 22:25 10/02/18 15:58 [place] 10/325 PO 1 tab Q4H PRN Administration Moderate Pain (4-6) Hydrocodone Bitart/Acetaminophen 2 tab 09/29/18 22:32 10/02/18 11:21 [place] 10/325 PO 2 tab Q4H PRN Administration Severe Pain (7-10) Albuterol/Ipratropium 3 ml 09/30/18 18:30 10/02/18 18:33 Duoneb NEB 3 ml [id number] KATELYN Administration Ciprofloxacin 500 mg 10/01/18 20:00 10/02/18 06:37 Cipro PO 500 mg 0600,2000 KAETLYN Administration Furosemide 40 mg 09/30/18 06:00 10/02/18 15:59 Lasix SLOW IVP 40 mg 0600,1400 KATELYN Administration Vancomycin HCl 1.25 gm/ Sodium 250 mls @ 250 mls/hr 09/30/18 20:00 10/02/18 11:27 Chloride IVPB 250 mls 0400,1200,2000 KATELYN Administration Melatonin 6 mg 09/30/18 19:33 10/01/18 20:21 Melatonin PO 6 mg HSPRN PRN Administration Insomnia Morphine Sulfate 60 mg 09/30/18 01:51 10/02/18 18:02 Ms Contin PO 60 mg Q12H PRN Administration Severe Pain (7-10) Ondansetron HCl 4 mg 09/29/18 22:30 10/02/18 19:27 Zofran IVP 4 mg Q6H PRN Administration Nausea/Vomiting Saccharomyces Boulardii 250 mg 10/01/18 09:00 10/02/18 06:15 Florastor PO 250 mg DAILY KATELYN Administration Sodium Chloride 10 ml 09/30/18 09:00 10/02/18 10:40 Flush - Normal Saline IVF Not Given Q12HR KATELYN - Exam Neck: negative: supple, symmetric, no JVD, no thyromegaly, no lymphadenopathy, no carotid bruit, JVD Heart: negative: RRR, no murmur, no gallops, no rubs, normal peripheral pulses, irregular, diminshed peripheral pulses, murmur present, II/IV, III/IV Respiratory - other findings: decreased breath sounds to left lung, pleurx cath Hosp A/P (1) Pleural effusion Code(s): J90 - PLEURAL EFFUSION, NOT ELSEWHERE CLASSIFIED Status: Acute (2) Invasive ductal carcinoma of breast Code(s): C50.919 - MALIGNANT NEOPLASM OF UNSP SITE OF UNSPECIFIED FEMALE BREAST Status: Acute Qualifiers: Laterality: left Qualified Code(s): C50.912 - Malignant neoplasm of unspecified site of left female breast (3) Acute respiratory failure Code(s): J96.00 - ACUTE RESPIRATORY FAILURE, UNSP W HYPOXIA OR HYPERCAPNIA Status: Acute - Plan pt underwent thoracentesis of her left chest 2L. studies sent. will continue abx since her skin cx indicated staph. will get bilateral lower ext doppler and left upper ext doppler. wound care consulted. 10/01 will consult ID for her polymicrobial swab. pt to get pleurx cath in am. her abx has been changed to cipro by pulm. 10/02 will continue abx for now, hospice discussed with pt by onc. she wants to keep fighting. s/p pleurx cath placement. cytology pending.
[2018-10-02 19:45] LABS: Vancomycin, Trough 30.3 ug/mL
[2018-10-02] MEDS ORDERED: Morphine 4 MG/ML VIAL SLOW IVP SCH (20:30)
[2018-10-02] MEDS: Melatonin 3 MG TAB PO PRN (20:38)
[2018-10-03] MEDS ORDERED: Vancomycin HCl 1.25 GM in Sodium Chloride 0.9% 250 ML 250 ML IVPB SCH (04:00)
[2018-10-03] MEDS: HYDROcodone/Acetaminophen 10/325 mg Tablet PO PRN ×4 (04:01→16:25)
[2018-10-03] MEDS: Morphine ER 30 MG TAB PO PRN (05:47)
[2018-10-03] MEDS: Ciprofloxacin 500 MG TAB PO SCH ×2 (05:47→20:29)
[2018-10-03] MEDS: Furosemide 40 MG/4 ML VIAL SLOW IVP SCH (05:48)
[2018-10-03] MEDS: Ondansetron PF 4 MG/2 ML Vial IVP PRN (06:14)
[2018-10-03] MEDS: Saccharomyces boulardii 250 MG CAP PO SCH (08:03)
--- NOTE | 2018-10-03 09:22 | PRG ---
DATE OF SERVICE: 10/03/2018 SUBJECTIVE: This morning, she is better, less short of breath. She had a pleural catheter inserted yesterday and additional 5000 mL fluid removed. To my surprise, cytology is still pending. OBJECTIVE: VITAL SIGNS: Blood pressure is 106/80, pulse 108, respirations 17, and saturations are 95% on supplemental oxygen. CHEST: Minimal wheezing. CARDIAC: Normal S1 and S2. No gallops. ABDOMEN: No masses. IMPRESSION AND PLAN: 1. Superficial wound infection for methicillin-resistant Staphylococcus aureus on Cipro, this is more than adequate. 2. Massive pleural effusion and metastatic breast cancer. 3. Bronchospasm. Added Dulera. Disposition as per primary care physician. Job ID: [id number]
--- NOTE | 2018-10-03 10:16 | RAD ---
PA AND LATERAL CHEST: HISTORY: Pleural effusion. Chest tube placement. COMPARISON: Exam from the previous day. FINDINGS: Line and tube placements are unchanged in position. There is mild improvement in aeration of the lef t lung with consolidation in the left mid and lower lung zones. No pneumothoraces are seen. The hea rt size is stable. The right lung is clear. POS: OFF
--- NOTE | 2018-10-03 15:57 | PDOC.HOSPP ---
- Subjective Encounter Date: 10/03/18 Encounter Time: 15:55 Subjective: Ms. Mcgowan was seen today in follow-up of cellulitis of the chest wall, as well as malignant pleural effusion. She does not have any new complaints. - Objective Vital Signs & Weight: Vital Signs (12 hours) Temp Pulse Resp Pulse Ox 10/03/18 10:52 105 H 22 H 92 L 10/03/18 08:00 97.6 F 93 L 10/03/18 07:40 108 H 17 94 L 10/03/18 04:00 97.5 F L Weight Admit Weight 224 lb Weight 224 lb Most Recent Monitor Data Heart Rate from ECG 109 NIBP 124/88 NIBP BP-Mean 100 Respiration from ECG 21 SpO2 92 I&O: 10/02/18 10/03/18 10/04/18 06:59 06:59 06:59 Intake Total 860 1310 Output Total 600 950 Balance 260 360 Result Diagrams: 09/30/18 05:59 09/30/18 05:59 Hospitalist ROS - Medication Medications: Active Medications Generic Name Dose Route Start Last Admin Trade Name Freq PRN Reason Stop Dose Admin Hydrocodone Bitart/Acetaminophen 1 tab 09/29/18 22:25 10/02/18 15:58 [place] 10/325 PO 1 tab Q4H PRN Administration Moderate Pain (4-6) Hydrocodone Bitart/Acetaminophen 2 tab 09/29/18 22:32 10/03/18 12:30 [place] 10/325 PO 2 tab Q4H PRN Administration Severe Pain (7-10) Albuterol/Ipratropium 3 ml 10/03/18 12:30 10/03/18 12:41 Duoneb NEB Not Given TID-RT KATELYN Ciprofloxacin 500 mg 10/01/18 20:00 10/03/18 05:47 Cipro PO 500 mg 06,1999 KATELYN Administration Ketorolac Tromethamine 30 mg 10/02/18 16:03 10/02/18 19:28 Toradol IVP 10/07/18 16:04 30 mg Q6H PRN Administration Pain Melatonin 6 mg 09/30/18 19:33 10/02/18 20:38 Melatonin PO 6 mg HSPRN PRN Administration Insomnia Morphine Sulfate 60 mg 09/30/18 01:51 10/03/18 05:47 Ms Contin PO 60 mg Q12H PRN Administration Severe Pain (7-10) Ondansetron HCl 4 mg 09/29/18 22:30 10/03/18 06:14 Zofran IVP 4 mg Q6H PRN Administration Nausea/Vomiting Saccharomyces Deliadii 250 mg 10/01/18 09:00 10/03/18 08:03 Florastor PO 250 mg DAILY KATELYN Administration Sodium Chloride 10 ml 09/30/18 09:00 10/03/18 09:31 Flush - Normal Saline IVF Not Given Q12HR KATELYN - Exam Eye: PERRL, anicteric sclera Heart: RRR, no murmur, no gallops, no rubs Respiratory: rales (+ rales at both bases) Gastrointestinal: soft, non-tender, non-distended, normal bowel sounds, no palpable masses, no hepatomegaly, no splenomegaly Extremities: no cyanosis, no clubbing, 1+ LE edema Skin: normal turgor, no lesions Hosp A/P (1) Malignant pleural effusion Code(s): J91.0 - MALIGNANT PLEURAL EFFUSION Status: Acute (2) Invasive ductal carcinoma of breast Code(s): C50.919 - MALIGNANT NEOPLASM OF UNSP SITE OF UNSPECIFIED FEMALE BREAST Status: Acute Qualifiers: Laterality: left Qualified Code(s): C50.912 - Malignant neoplasm of unspecified site of left female breast - Plan * Malignant Pleural Effusion- she is s/p PleurX catheter placement * Chest wall cellulitis- she can be tranisition to oral Cipro ( based on culture results) * Plan to discharge home this afternoon.
[2018-10-03] MEDS ORDERED: Mometasone/Formoterol 120 PUFF INHALER INH SCH (18:30)
[2018-10-03] MEDS ORDERED: Vancomycin HCl 1.5 GM in Sodium Chloride 0.9% 250 ML 300 ML IVPB SCH (19:00)
[2018-10-03 19:35] VITALS: TEMP 98.3
--- NOTE | 2018-10-04 00:03 | DIS ---
DATE OF ADMISSION: 09/29/2018 DATE OF DISCHARGE: 10/03/2018 DISCHARGE DISPOSITION: Home. PRIMARY DISCHARGE DIAGNOSES: 1. 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 2. Malignant pleural effusion, status post PleurX catheter placement. 3. Cellulitis of the chest wall. DISCHARGE MEDICATIONS: 1. Ciprofloxacin 500 mg twice a day for 7 days. 2. Florastor 250 mg daily. 3. Morphine sulfate 60 mg twice daily. 4. [place] 5/325, 1-2 tablets q.4 hours as needed. PROCEDURES DONE DURING THE ADMISSION: The patient had a vascular ultrasound in which there was no evidence of DVT. The patient had the placement of a PleurX catheter on the left. CODE STATUS: Full code. ALLERGIES: NO KNOWN DRUG ALLERGIES. HOSPITAL COURSE: Ms. Juan M Sanders is a very pleasant 33-year-old female, who has a history of stage IV intraductal invasive carcinoma. She has a malignant pleural effusion and was admitted due to shortness of breath. She was seen by both Pulmonology, as well as Thoracic Surgery. She underwent initially a diagnostic as well as therapeutic thoracentesis followed by reaccumulation of the fluid, and the decision was made to place a PleurX catheter. She was instructed on the use of the catheter. She also had a chest wall cellulitis, the swab of which was growing methicillin-resistant Staph as well as Pseudomonas and presumptive Klebsiella. All of these organisms were sensitive to ciprofloxacin. During the hospital stay, the area was stabilized with IV vancomycin and Cipro and on the time of discharge, she was switched over to oral ciprofloxacin. The patient was also seen by our Oncology Team and it was felt that she had exhausted all of her options with regard to active chemotherapy. However, the patient was requesting a second opinion and she decided that she was going to go to [facility] on her own and asked to be discharged today in order to accomplish this. Since she was clinically stable with no fever and the PleurX catheter was in place and she had been trained on its usage, she will be discharged home today, so that she can make her way to [facility] for a second opinion. She was given instructions on if she has worsening shortness of breath, fever, or pain to return to the emergency room. Plus, she had an [facility] should she not be admitted at [facility]. Job ID: [id number]
[2018-10-04 19:08] LABS: Fungus Stain Final report (.)
--- NOTE | 2018-10-05 21:50 | PQF ---
[employer] Crystal Reports Winform ViewerAguieric Hutchison Helen JUAN DIEGO ROMO MD [id number] CLINICAL DOCUMENTATION CLARIFICATION FORM: POST DISCHARGE Addendum to original discharge summary date: ____ Late entry note date: __ DATE: 10/05/2018 ATTN: JUAN DIEGO ROMO MD Please exercise your independent, professional judgment in responding to the clarification form. Clinical indicators are provided on the bottom of this form for your review 10/02, Final Diagnosis on the Pathology report: Pleural fluid-positive malignant cells, consistent with metastatic carcinoma 10/03- Progress Notes indicate: malignant pleural effusion Clarification of Pathology report: Please check appropriate box(s): [ X ] Agree w the pathology finding of: [ ] Other explanation of pathology findings (please specify) [ ] Other diagnosis [ ] Unable to determine For continuity of documentation, please document condition throughout progress notes and discharge summary. Thank You. CLINICAL INDICATORS - SIGNS/ SYMPTOMS / LABS -Invasive ductal carcinoma of [facility]-Hospital Progress note, 10/03, Jhony Seay MD -Malignant pleural effusion, s/p pleurX catheter placement-DS, 10/03, Jhony Seay MD -Metastatic invasive ductal cell carcinoma of the breast--DS, 10/03, Jhony Seay MD -Pleural fluid-positive malignant cells, consistent with metastatic carcinoma- pathology report, 10/02 -Left with open ulcerating breast cancer-OP, 10/03, Bennett Everett MD RISK FACTORS - Cellulitis of the chest wall- DS, 10/03, Jhony Seay MD - Acute respiratory failure-Hospital PN, 10/02, Citlaly Rangel MD TREATMENTS -Seen by our oncology team-DS, 10/03, Jhony Seay MD - Left pleurX catheter-OP report, 10/02-Bennett Everett MD -Chemotherapy-DS, 10/03, Jhony Seay MD [employer] Crystal Reports Winform Viewer (This form is maintained as a part of the permanent medical record) 2014 [employer]. All Rights Reserved Betty Madrigal [not provided] [not provided] MTDD
== END 2018-10-03 08:00 | disposition home or self-care (01) | DRG 180 ==
LOC: ERS 17:57 → IMCU/EMU 22:15
PROVIDERS: ADMIT Hospitalist; ATTEND Hospitalist
PROC: 0W9B3ZZ Drainage of Left Pleural Cavity, Percutaneous Approach (ICD-10-PCS; principal; 2018-09-30)
PROC: 0W9B30Z Drainage of Left Pleural Cavity with Drainage Device, Percutaneous Approach (ICD-10-PCS; 2018-10-02)
DX: C78.2 Secondary malignant neoplasm of pleura (principal); J96.00 Acute respiratory failure, unspecified whether with hypoxia or hypercapnia; L03.313 Cellulitis of chest wall; J91.0 Malignant pleural effusion; C50.919 Malignant neoplasm of unspecified site of unspecified female breast; J98.01 Acute bronchospasm; B95.8 Unspecified staphylococcus as the cause of diseases classified elsewhere; Z90.12 Acquired absence of left breast and nipple; Z90.49 Acquired absence of other specified parts of digestive tract
CPT/HCPCS: 36415; 71045; 71046; 71260; 74177; 80048; 80053; 80202; 82150; 82945; 83605; 83615; 83880; 83986; 84157; 84703; 85025; 85060; 87040; 87070; 87077; 87116; 87149; 87186; 87205; 87206; 88112; 88305; 89051; 93005; 93970; 96365; 96366; C1729; J1642; J1885; J1940; J2250; J2270; J2405; J2543; J2704; J3010; J3370; J3490; J7050; J7620; Q0162; Q9966

== ENCOUNTER 2018-10-05 13:48 | Outpatient (CLI) | payer SELFPAY ==
--- NOTE | 2018-10-05 23:49 | HP ---
HISTORY OF PRESENT ILLNESS: Ms. Kianna Sanders is a very pleasant 33-year-old, accompanied by her spouse and child, who [facility] for evaluation of a large wound of the left chest subsequent to left modified radical mastectomy for metastatic left breast carcinoma. The patient underwent left modified radical mastectomy in September 2017. At this time, the patient also underwent laparoscopic cholecystectomy. The patient states that she has been cleansing her wound over the left chest with Dove soap and water after discharge from [facility] on 10/03/2018, during which time, she was treated for cellulitis of the chest wall. The patient states she has been performing dressing changes with Multidex powder and gauze. She states dressing changes with Multidex powder were initiated during her hospital stay. PAST MEDICAL HISTORY: 1. Metastatic left breast carcinoma, status post chemoradiation and surgery. 2. History of gallstone pancreatitis with pseudocyst formation. 3. Anemia. PAST SURGICAL HISTORY: 1. Breast biopsy. 2. MediPort placement. 3. Laparoscopy. 4. Laparoscopic cholecystectomy/left modified radical mastectomy. 5. Left PleurX catheter placement for malignant pleural effusion on the left with open ulcerating breast carcinoma. MEDICATIONS: 1. Morphine. 2. Hydrocodone. ALLERGIES: NO KNOWN DIAGNOSED ALLERGIES. SOCIAL HISTORY: Social history is negative for tobacco or EtOH use. FAMILY HISTORY: Family history is negative for diabetes mellitus or coronary artery disease. PHYSICAL EXAMINATION: VITAL SIGNS: Temperature 98.3, pulse 105, respirations 20, blood pressure 131/69. GENERAL: A 33-year-old female, sitting on table in examination room, in no acute distress. HEENT: Normocephalic, atraumatic. NECK: No nuchal rigidity. CHEST: A wound of the left chest is present, which measures approximately 45 x 25 cm. No granulation tissue is visible within the wound margins. No purulent drainage is associated with the wound. No maceration of the skin of the periwound is noted. CV: Regular rate and rhythm. ABDOMEN: Soft. EXTREMITIES: Lymphedema of the left upper extremity is present on exam today. NEUROLOGIC: Grossly nonfocal. ASSESSMENT AND PLAN: 1. Large wound of left chest as described above. Dressing changes of Medihoney and gauze will be initiated today. These dressing changes are to be performed on a daily basis after cleansing and irrigation. The patient will be performing her own dressing changes. I will see Ms. Juan M Sanders again in 2 weeks. 2. Metastatic left breast carcinoma, status post chemoradiation and surgery. 3. History of gallstone pancreatitis with pseudocyst formation. 4. Anemia. Job ID: [id number]
== END 2018-10-05 13:49 | disposition home or self-care (01) ==
LOC: WCC 13:48
PROVIDERS: ATTEND Family Medicine
DX: T81.89XD Other complications of procedures, not elsewhere classified, subsequent encounter (principal); C50.912 Malignant neoplasm of unspecified site of left female breast; D64.9 Anemia, unspecified; Z92.21 Personal history of antineoplastic chemotherapy; Z92.3 Personal history of irradiation; Z87.19 Personal history of other diseases of the digestive system
CPT/HCPCS: 99203; G0463

== ENCOUNTER 2018-10-06 11:54 | Day surgery (SDC) | payer SELFPAY ==
[~2018-10-06 11:54] MED LIST changes: +ADMIXTURE FEE IVPB SCH; +ATEZOLIZUMAB 840 MG in Sodium Chloride 0.9% 250 ML 250 ML IV SCH; -ISOVUE-370 76%-LOCM 1 ML ONE; +Ondansetron 2MG/ML MDV 10 MG in Sodium Chloride 0.9% 50 ML IVP SCH; +PACLITAXEL PROTEIN BOUND IVPB SCH
[2018-10-06] MEDS ORDERED: Sodium Chloride 0.9% 20 ML ONE (12:01)
[2018-10-06 12:52] VITALS: BP 141/79; TEMP 98.7
== END 2018-10-06 15:18 | disposition home or self-care (01) ==
LOC: ONC/OP 11:54
PROVIDERS: ATTEND Internal Medicine Medical Oncology
DX: Z51.12 Encounter for antineoplastic immunotherapy (principal); C50.412 Malignant neoplasm of upper-outer quadrant of left female breast
CPT/HCPCS: 96375; 96413; 96417; J1642; J2405